=== PATIENT | male | born 1975 | race Caucasian/White ===

== ENCOUNTER 2016-09-06 07:15 | Day surgery (SDC) | payer BC ==
[2016-09-05 16:19] VITALS: BMI 28.1
[2016-09-06] MEDS ORDERED: BUPIVACAINE HCL/PF 0.25% (2.5MG/ML) 10 ML VIAL ONE ×2 (07:42→07:43)
[2016-09-06] MEDS ORDERED: DEXAMETHASONE SOD PHOSPHATE 4 MG/1 ML VIAL ONE (07:42)
[2016-09-06] MEDS ORDERED: MIDAZOLAM HCL 2 MG/2 ML SINGLE DOSE VIAL ONE ×3 (08:57→09:18)
[2016-09-06] MEDS ORDERED: LIDOCAINE HCL 1%, 10 MG/ML (20ML VIAL) ONE (09:03)
[2016-09-06] MEDS ORDERED: BETAMET ACET/BETAMET NA PH 30 MG/5 ML VIAL ONE (09:04)
[2016-09-06] MEDS ORDERED: BUPIVACAINE HCL/PF 0.25% (2.5MG/ML) 10 ML VIAL IJ ONE ×2 (09:21)
[2016-09-06] MEDS ORDERED: BETAMET ACET/BETAMET NA PH 30 MG/5 ML VIAL NR ONE ×2 (09:21)
[2016-09-06] MEDS ORDERED: IOHEXOL 180 MG/1 ML ML IJ ONE (09:21)
[2016-09-06] MEDS ORDERED: LIDOCAINE HCL 1%, 10 MG/ML (50 mL VIAL) IJ ONE (09:21)
--- NOTE | 2016-09-06 09:38 | HP ---
Admitting History and Physical - Admission Chief Complaint: 1. Neck pain - Past Medical History Musculoskeletal: Yes: Chronic low back pain - Smoking History Smoking history: Never smoked Have you smoked in the past 12 months: No - Alcohol/Substance Use Hx Alcohol Use: Yes (rarely) - Social History ADL: Family Assistance Home Medications - Allergies Allergies/Adverse Reactions: Allergies Allergy/AdvReac Type Severity Reaction Status Date / Time Iodinated Contrast Media - Allergy Verified 09/05/16 16:12 Oral and [Iodinated Contrast Media - IV Dye] ketorolac tromethamine Allergy Verified 09/05/16 16:12 [From Toradol] Penicillins Allergy Verified 09/05/16 16:12 scallops Allergy Verified 09/05/16 16:12 strawberry Allergy Verified 09/05/16 16:12 - Home Medications Home Medications: Ambulatory Orders NK [No Known Home Medication] 09/05/16 Physical Examination Vital Signs: Vital Signs Temperature 97.8 F 09/06/16 07:32 Pulse Rate 94 H 09/06/16 07:32 Respiratory Rate 20 09/06/16 07:32 Blood Pressure 119/85 09/06/16 07:32 O2 Sat by Pulse Oximetry (%) 100 09/06/16 07:32 Assessment/Plan A: 1. Cervical DDD 2. Cervical Adjacent level disease P: 1. Right C4/5 and C5/6 facet joint injections under fluoroscopy.
[2016-09-06] MEDS ORDERED: LACTATED RINGERS SOLUTION 1,000 ML IV SCH ×2 (10:00→13:45)
[2016-09-06] MEDS ORDERED: morphine CARPU-JECT 4 MG/1 ML DISP.SYRIN ONE ×2 (10:21→12:37)
[2016-09-06] MEDS ORDERED: morphine CARPU-JECT 2 MG/1 ML DISP.SYRIN IVPUSH ONE ×2 (10:26→10:31)
[2016-09-06] MEDS ORDERED: NITROGLYCERIN SUBLINGUAL 1/150 0.4 MG TAB SL ONE ×2 (10:40→11:03)
[2016-09-06] MEDS ORDERED: LORAZEPAM CARPU-JECT 2 MG/ML DISP.SYRIN ONE (10:44)
--- NOTE | 2016-09-06 10:46 | EKG ---
Test Reason : Blood Pressure : / mmHG Vent. Rate : 086 BPM Atrial Rate : 086 BPM P-R Int : 134 ms QRS Dur : 094 ms QT Int : 360 ms P-R-T Axes : 030 -05 021 degrees QTc Int : 430 ms NORMAL SINUS RHYTHM NORMAL ECG WHEN COMPARED WITH ECG OF 31-JAN-2016 15:18, NO SIGNIFICANT CHANGE WAS FOUND Confirmed by GUZMAN HOGUE MD ([id number]) on 09/06/2016 10:46:25 AM Referred By: Александр Wallis Confirmed By:GUZMAN HOGUE MD
[2016-09-06] MEDS ORDERED: PANTOPRAZOLE SODIUM 40 MG/100 ML PRE-DOCKED IVPB ONE (10:55)
[2016-09-06] MEDS: PANTOPRAZOLE SODIUM 40 MG/100 ML PRE-DOCKED IVPB ONE ×2 (10:55→11:55)
[2016-09-06 10:58] LABS: MCH 29.3 pg (25.7-33.7); MCHC 33.5 g/dl (32.0-35.9); MEAN CELL VOLUME 87.4 fl (80-96); MEAN PLT VOLUME 7.8 fl (7.5-11.1); PLATELET COUNT 246 K/MM3 (134-434); RDW 14.5 % (11.9-15.9); WHITE BLOOD COUNT 7.4 K/mm3 (4.0-10.0)
[2016-09-06] MEDS ORDERED: LORAZEPAM CARPU-JECT 2 MG/ML DISP.SYRIN IVPUSH ONE ×2 (11:06→12:45)
[2016-09-06] MEDS ORDERED: CITRIC ACID/SODIUM CITRATE 30 ML UNIT-DOSE CUP PO ONE (11:10)
[2016-09-06 11:38] LABS: ALBUMIN 3.8 g/dl (3.4-5.0); ANION GAP 8 (8-16); BILIRUBIN,TOTAL 0.8 mg/dL (0.2-1.0); CALCIUM 8.7 mg/dL (8.5-10.1); CO2 28 mmol/L (21-32); GLUCOSE,RANDOM 127 mg/dL (74-106); SGOT/AST 25 U/L (15-37); SGPT/ALT 76 U/L (12-78)
[2016-09-06 11:40] LABS: ALK PHOS 64 U/L (45-117); TROPONIN I < 0.02 ng/ml (0.00-0.05)
[2016-09-06] MEDS: morphine CARPU-JECT 4 MG/1 ML DISP.SYRIN IVPB PRN ×2 (12:40→18:12)
[2016-09-06] MEDS ORDERED: PANTOPRAZOLE SODIUM 100 ML IVPB ONE (13:00)
--- NOTE | 2016-09-06 13:12 | HP ---
CHIEF COMPLAINT: Chest pain PCP: Dr. Jeremy Manrique [place] [place] HISTORY OF PRESENT ILLNESS: This is a 40 year old male with a history of anxiety, OCD, depression, cervical spondylosis and radiculopathy, and 11 neck and back surgeries over the past 6 months who underwent midline C7/T1 interlaminar epidural steroid injections under fluoroscopy. In the recovery room , the patient complained of chest pain radiating to the left arm and up the left side of his neck "like a fishhook in my mouth." He reports associated shortness of breath. He denies nausea or diaphoresis. Pain improved with administration of ntg, morphine, and lorazepam in PACU, but is still present. -EKG was obtained showing NSR at [address] or T wave changes -CXR was obtained showing no acute pulmonary pathology -Labs including troponin were unremarkable -V/s are notable for mild tachycardia (HR 92-99) The patient reports having a normal nuclear stress test 10 years ago as part of a workup for palpitations. 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 Smoking: Smoked from [age] Alcohol: 1-2 drinks weekly Drugs: None Family History: Father with CAD/TX age 51, mother with HTN, "five aunts and uncles with heart attacks" Allergies Iodinated Contrast Media - Oral and [Iodinated Contrast Media - IV Dye] Allergy (Verified 09/05/16 16:12) ketorolac tromethamine [From Toradol] Allergy (Verified 09/05/16 16:12) Penicillins Allergy (Verified 09/05/16 16:12) scallops Allergy (Verified 09/05/16 16:12) strawberry Allergy (Verified 09/05/16 16:12) HOME MEDICATIONS: Home Medications Medication Instructions Recorded NK [No Known Home Medication] 09/05/16 REVIEW OF SYSTEMS CONSTITUTIONAL: Absent: fever, chills, diaphoresis, generalized weakness, malaise, loss of appetite, weight change HEENT: Absent: rhinorrhea, nasal congestion, throat pain, throat swelling, difficulty swallowing, mouth swelling, ear pain, eye pain, visual changes CARDIOVASCULAR: See HPI. RESPIRATORY: Absent: cough,dyspnea with exertion, orthopnea, wheezing, stridor, hemoptysis GASTROINTESTINAL: Absent: abdominal pain, abdominal distension, nausea, vomiting, diarrhea, constipation, melena, hematochezia GENITOURINARY: Absent: dysuria, frequency, urgency, hesitancy, hematuria, flank pain, genital pain MUSCULOSKELETAL: Absent: myalgia, arthralgia, joint swelling, back pain, neck pain SKIN: Absent: rash, itching, pallor HEMATOLOGIC/IMMUNOLOGIC: Absent: easy bleeding, easy bruising, lymphadenopathy, frequent infections ENDOCRINE: Absent: unexplained weight gain, unexplained weight loss, heat intolerance, cold intolerance NEUROLOGIC: Absent: headache, focal weakness or paresthesias, dizziness, unsteady gait, seizure, mental status changes, bladder or bowel incontinence PSYCHIATRIC: History of anxiety/OCD/depression; not on any medications for about 6 months. PHYSICAL EXAMINATION Vital Signs - 24 hr 09/05/16 09/06/16 09/06/16 16:15 07:32 09:40 Temperature 97.8 F 97.8 F 98.0 F Pulse Rate 94 H 94 H 88 Respiratory 20 20 10 L Rate Blood Pressure 119/85 119/85 138/95 O2 Sat by Pulse 100 98 Oximetry (%) 09/06/16 09/06/16 09/06/16 10:00 10:15 10:20 Temperature Pulse Rate 81 77 99 H Respiratory 20 16 16 Rate Blood Pressure 128/79 130/89 126/101 O2 Sat by Pulse 96 95 99 Oximetry (%) 09/06/16 09/06/16 09/06/16 10:30 10:45 11:00 Temperature Pulse Rate 93 H 92 H 93 H Respiratory 18 18 18 Rate Blood Pressure 125/94 122/79 128/80 O2 Sat by Pulse 100 95 97 Oximetry (%) GENERAL: Awake, alert, and fully oriented, in no acute distress. HEAD: Normal with no signs of trauma. EYES: Pupils equal, round and reactive to light, extraocular movements intact, sclera anicteric, conjunctiva clear. No lid lag. EARS, NOSE, THROAT: Ears normal, nares patent, oropharynx clear without exudates. Moist mucous membranes. NECK: Normal range of motion, supple without lymphadenopathy, JVD, or masses. LUNGS: Breath sounds equal, clear to auscultation bilaterally. No wheezes, and no crackles. No accessory muscle use. HEART: Regular rate and rhythm, normal S1 and S2 without murmur, rub or gallop. Pain reproducible with twisting movement of torso and with palpation of left sternum. ABDOMEN: Soft, nontender, not distended, normoactive bowel sounds, no guarding, no rebound, no masses. No hepatomegaly or splenomegaly. MUSCULOSKELETAL: Normal range of motion at all joints. No bony deformities or tenderness. No CVA tenderness. UPPER EXTREMITIES: 2+ pulses, warm, well-perfused. No cyanosis. No clubbing. Cap refill <2 seconds. No peripheral edema. LOWER EXTREMITIES: 2+ pulses, warm, well-perfused. No calf tenderness. No peripheral edema. NEUROLOGICAL: Cranial nerves II-XII intact. Normal speech. Normal gait. PSYCHIATRIC: Anxious affect. SKIN: Warm, dry, normal turgor, no rashes or lesions noted. Laboratory Results - last 24 hr 09/06/16 09/06/16 10:35 10:35 WBC 7.4 RBC 4.95 Hgb 14.5 D Hct 43.2 MCV 87.4 MCHC 33.5 RDW 14.5 Plt Count 246 D MPV 7.8 Sodium 140 Potassium 4.9 D Chloride 104 Carbon Dioxide 28 Anion Gap 8 BUN 10 Creatinine 1.0 Creat Clearance w eGFR > 60 Random Glucose 127 H Calcium 8.7 Total Bilirubin 0.8 D AST 25 D ALT 76 D Alkaline Phosphatase 64 Creatine Kinase 67 Troponin I < 0.02 Total Protein 7.0 Albumin 3.8 ASSESSMENT/PLAN: 40 year old male placed in observation for post-procedural chest pain. Problem List - Problem (1) Chest pain Assessment/Plan: -Reproducible -EKG, CXR, TNI x 1 unremarkable -Monitor on telemetry -Complete serial troponins to rule out [place] -Echocardiogram -If negative, advise outpatient cardiology followup given strong family history Code(s): R07.9 - CHEST PAIN, UNSPECIFIED (2) Anxiety Assessment/Plan: -Not on daily meds at this time -Alprazolam 0.25mg q8h prn Code(s): F41.9 - ANXIETY DISORDER, UNSPECIFIED (3) S/P epidural steroid injection Assessment/Plan: -Oxycodone 5mg po q6h prn pain Code(s): Z98.89 - OTHER SPECIFIED POSTPROCEDURAL STATES * DO NOT USE * (4) DVT prophylaxis Assessment/Plan: -Low risk (short expected length of stay) -Early ambulation ADDENDUM: Patient developed "excruciating" chest pain and sinus tachycardia to 160s. Will give IVF bolus. CTA chest ordered. Cardiology consulted. Night team to follow up. Code(s): [id number] - Visit type - Emergency Visit Emergency Visit: No - New Patient This patient is new to me today: Yes Date on this admission: 09/06/16 - Critical Care Critical Care patient: No
[2016-09-06] MEDS ORDERED: ACETAMINOPHEN 325 MG TABLET (FP) PO PRN (13:16)
[2016-09-06] MEDS ORDERED: ONDANSETRON 4 MG/2 ML VIAL IVPB PRN (13:16)
[2016-09-06] MEDS ORDERED: ALPRAZolam 0.25 MG TABLET PO PRN (14:05)
[2016-09-06] MEDS: oxyCODONE HCL 5 MG TABLET PO PRN ×2 (15:05→21:03)
[2016-09-06 18:02] LABS: TROPONIN I < 0.02 ng/ml (0.00-0.05)
[2016-09-06] MEDS ORDERED: morphine CARPU-JECT 2 MG/1 ML DISP.SYRIN ONE (18:08)
[2016-09-06] MEDS ORDERED: SODIUM CHLORIDE 1,000 ML IV STA (18:15)
--- NOTE | 2016-09-06 18:18 | CON.CARD ---
Consult Consult Specialty:: Cardiology Referred by:: Hospitalist Medicine Reason for Consultation:: Chest pain, tachycardia - History of Present Illness Chief Complaint: Chest pain, tachycardia History of Present Illness: This is a 40 year old male with a history of anxiety, OCD, depression, cervical spondylosis and radiculopathy, and 11 neck and back surgeries over the past 6 months who underwent midline C7/T1 interlaminar epidural steroid injections under fluoroscopy. In the recovery room, the patient complained of pleuritic chest pain radiating to the left arm and up the left side of his neck "like a fishhook in my mouth." He reports associated shortness of breath. He denies nausea, emesis, near or true syncope, palpitations or diaphoresis. Pain improved with administration of ntg, morphine, and lorazepam in PACU, but recurred on floor, now with sinus tachycardia. - History Source History Provided By: Patient Limitations to Obtaining History: No Limitations - Past Medical History Musculoskeletal: Yes: Chronic low back pain - Alcohol/Substance Use Hx Alcohol Use: Yes (rarely) - Smoking History Smoking history: Never smoked Have you smoked in the past 12 months: No - Social History Usual Living Arrangement: With Spouse ADL: Family Assistance Home Medications - Allergies Allergies/Adverse Reactions: Allergies Allergy/AdvReac Type Severity Reaction Status Date / Time Iodinated Contrast Media - Allergy Verified 09/05/16 16:12 Oral and [Iodinated Contrast Media - IV Dye] ketorolac tromethamine Allergy Verified 09/05/16 16:12 [From Toradol] Penicillins Allergy Verified 09/05/16 16:12 scallops Allergy Verified 09/05/16 16:12 strawberry Allergy Verified 09/05/16 16:12 - Home Medications Home Medications: Ambulatory Orders NK [No Known Home Medication] 09/05/16 Vital Signs: Vital Signs Temperature 97.9 F 09/06/16 14:41 Pulse Rate 113 H 09/06/16 14:41 Respiratory Rate 20 09/06/16 14:41 Blood Pressure 129/89 09/06/16 14:41 O2 Sat by Pulse Oximetry (%) 97 09/06/16 13:14 Constitutional: Yes: Anxious, Moderate Distress Neck: Yes: Supple Respiratory: Yes: Regular, Diminished, Other (Pleurisy) Gastrointestinal: Yes: Normal Bowel Sounds, Soft Cardiovascular: Yes: Tachycardia JVD: No Carotid Bruit: No Heart Sounds: Yes: S1, S2 Edema: No - Other Data Labs, Other Data: CBC, BMP 09/06/16 10:35 09/06/16 10:35 Troponin, BNP 09/06/16 10:35 Troponin I < 0.02 Troponin, BNP 09/06/16 10:35 Troponin I < 0.02 ST @ 130's Imaging - Results Chest X-ray: Report Reviewed (NAD, no PTX) Problem List - Problems (1) Chest pain Code(s): R07.9 - CHEST PAIN, UNSPECIFIED Qualifiers: Chest pain type: chest pain on breathing Qualified Code(s): R07.1 - Chest pain on breathing (2) Radiculopathy affecting upper extremity Code(s): M54.10 - RADICULOPATHY, SITE UNSPECIFIED (3) S/P epidural steroid injection Code(s): Z98.89 - OTHER SPECIFIED POSTPROCEDURAL STATES * DO NOT USE * (4) Sinus tachycardia Code(s): R00.0 - TACHYCARDIA, UNSPECIFIED (5) Dyspnea Code(s): R06.00 - DYSPNEA, UNSPECIFIED Qualifiers: Dyspnea type: shortness of breath Qualified Code(s): R06.02 - Shortness of breath Assessment/Plan 1. Pleuritic chest pain with tachycardia and need to r/o pulm embolism 2. Cervical DJD s/p interlaminar epidural steroid injections under fluoroscopy P:1. F/u Chest CTA with pre-med Benadryl and Hydrocortisone given iodinated contrast allergy (urticaria) 2. O2, morphine as needed 3. Thank you for consultative opportunity
[2016-09-06] MEDS ORDERED: HYDROCORTISONE SOD SUCCINATE 100 MG/2 ML VIAL IVPB ONE (18:24)
[2016-09-06] MEDS ORDERED: HYDROCORTISONE SOD SUCCINATE 2 ML ONE (18:29)
[2016-09-06] MEDS: DOCUSATE SODIUM 100 MG CAPSULE (FP) PO SCH (21:06)
[2016-09-07] MEDS ORDERED: morphine CARPU-JECT 2 MG/1 ML DISP.SYRIN ONE ×3 (01:04→14:10)
[2016-09-07] MEDS: morphine CARPU-JECT 4 MG/1 ML DISP.SYRIN IVPB PRN ×3 (01:12→14:15)
[2016-09-07 08:25] LABS: MCH 29.8 pg (25.7-33.7); MCHC 34.4 g/dl (32.0-35.9); MEAN CELL VOLUME 86.8 fl (80-96); NEUTROPHILS 85.1 % (42.8-82.8); PLATELET COUNT 255 K/MM3 (134-434); RDW 14.4 % (11.9-15.9); WHITE BLOOD COUNT 12.4 K/mm3 (4.0-10.0)
[2016-09-07 09:05] LABS: ALBUMIN 3.7 g/dl (3.4-5.0); ALK PHOS 56 U/L (45-117); ANION GAP 9 (8-16); BILIRUBIN,TOTAL 0.9 mg/dL (0.2-1.0); CALCIUM 8.8 mg/dL (8.5-10.1); CHOLESTEROL 308 mg/dL (50-200); CO2 27 mmol/L (21-32); CREATININE 0.9 mg/dL (0.7-1.3); GLUCOSE,RANDOM 133 mg/dL (74-106); LDL CHOLESTEROL (ONLY SJRH) 259 mg/dL (5-100); MAGNESIUM 2.1 mg/dL (1.8-2.4); SGOT/AST 16 U/L (15-37); SGPT/ALT 67 U/L (12-78); TOT PROT 6.8 g/dl (6.4-8.2); TROPONIN I < 0.02 ng/ml (0.00-0.05)
--- NOTE | 2016-09-07 11:10 | PN ---
Physical Exam: SUBJECTIVE: Patient seen and examined Patient has no more chest pain resolved. Comfortable with n o acute distress. OBJECTIVE: Vital Signs Temperature 97.8 F 09/07/16 08:00 Pulse Rate 81 09/07/16 08:00 Respiratory Rate 18 09/07/16 08:00 Blood Pressure 136/96 09/07/16 08:00 O2 Sat by Pulse Oximetry (%) 97 09/06/16 21:00 GENERAL: The patient is awake, alert, and fully oriented, in no acute distress. HEAD: Normal with no signs of trauma. EYES: PERRL, extraocular movements intact, sclera anicteric, conjunctiva clear. No ptosis. ENT: Ears normal, oropharynx clear without exudates, moist mucous membranes. NECK: Trachea midline, full range of motion, supple. LUNGS: Breath sounds equal, clear to auscultation bilaterally, no wheezes, no crackles, no accessory muscle use. HEART: Regular rate and rhythm, S1, S2 without murmur, rub or gallop. ABDOMEN: Soft, nontender, nondistended, normoactive bowel sounds, no guarding, no rebound, no hepatosplenomegaly, no masses. EXTREMITIES: 2+ pulses, warm, well-perfused, no edema. NEUROLOGICAL: Cranial nerves II through XII grossly intact. Normal speech. PSYCH: Normal mood, normal affect. SKIN: Warm, dry, normal turgor, no rashes or lesions noted Laboratory Results - last 24 hr 09/06/16 09/06/16 09/06/16 10:35 10:35 15:30 WBC 7.4 RBC 4.95 Hgb 14.5 D Hct 43.2 MCV 87.4 MCHC 33.5 RDW 14.5 Plt Count 246 D MPV 7.8 Neutrophils % Lymphocytes % Monocytes % Eosinophils % Basophils % Sodium 140 Potassium 4.9 D Chloride 104 Carbon Dioxide 28 Anion Gap 8 BUN 10 Creatinine 1.0 Creat Clearance w eGFR > 60 Random Glucose 127 H Hemoglobin A1c % Calcium 8.7 Magnesium Total Bilirubin 0.8 D AST 25 D ALT 76 D Alkaline Phosphatase 64 Creatine Kinase 67 76 Troponin I < 0.02 < 0.02 Total Protein 7.0 Albumin 3.8 Triglycerides Cholesterol Total LDL Cholesterol HDL Cholesterol 09/07/16 09/07/16 09/07/16 05:40 05:40 05:40 WBC 12.4 H D RBC 4.51 Hgb 13.5 Hct 39.2 MCV 86.8 MCHC 34.4 RDW 14.4 Plt Count 255 MPV 8.0 Neutrophils % 85.1 H D Lymphocytes % 10.5 D Monocytes % 4.4 Eosinophils % 0.0 D Basophils % 0.0 Sodium 139 Potassium 4.4 Chloride 103 Carbon Dioxide 27 Anion Gap 9 BUN 13 D Creatinine 0.9 Creat Clearance w eGFR > 60 Random Glucose 133 H Hemoglobin A1c % 5.8 Calcium 8.8 Magnesium 2.1 Total Bilirubin 0.9 AST 16 D ALT 67 Alkaline Phosphatase 56 Creatine Kinase 53 Troponin I < 0.02 Total Protein 6.8 Albumin 3.7 Triglycerides 107 Cholesterol 308 H Total LDL Cholesterol 259 H HDL Cholesterol 53 Active Medications Generic Name Dose Route Start Last Admin Trade Name Freq PRN Reason Stop Dose Admin Acetaminophen 650 mg 09/06/16 13:16 09/06/16 15:07 Tylenol - PO 650 mg Q6H PRN Administration FEVER OR PAIN Alprazolam 0.25 mg 09/06/16 14:05 09/06/16 21:02 Xanax - PO 0.25 mg Q8H PRN Administration ANXIETY Docusate Sodium 100 mg 09/06/16 22:00 09/06/16 21:06 Colace - PO Not Given TID KONG Morphine Sulfate 4 mg 09/06/16 13:44 09/07/16 09:21 Morphine Injection - IVPB 4 mg Q4H PRN Administration Ondansetron HCl 4 mg 09/06/16 13:16 Zofran Injection IVPB Q6H PRN NAUSEA Oxycodone HCl 5 mg 09/06/16 14:06 09/06/16 21:03 Roxicodone - PO 5 mg Q6H PRN Administration PAIN ASSESSMENT/PLAN: 40 year old male placed in observation for post-procedural chest pain. # Acute Chest pain , [place] is rulled out by neagtive troponins ; Reproducible; Troponins x2 negative Follow with bilingual spanish inbound sales as an outpatient ; with that his father in law goes to . # Anxiety continue home meds ,Alprazolam 0.25mg q8h prn # S/P epidural steroid injection ;Oxycodone 5mg po q6h prn pain given Rx for 12 days # Leukocytosis due to steroid # Elevated LDL lipid ,will start the patient on Lipitor 40mg po daily, follow with your primary. Discussed with bilingual spanish inbound sales agreed on starting the patient on 40mg po Lipitor daily. DVT prophylaxis: EARLY ambulation Visit type - Emergency Visit Emergency Visit: Yes Care time: The patient presented to the Emergency Department on the above date and was hospitalized for further evaluation of their emergent condition. - New Patient This patient is new to me today: Yes Date on this admission: 09/07/16 - Critical Care Critical Care patient: No - Discharge Referral Referred to [facility] Med P.C.: No
[2016-09-07] MEDS ORDERED: ATORVASTATIN CA 40 MG TABLET (FP) PO ONE (11:17)
--- NOTE | 2016-09-07 13:39 | PN ---
Progress Note, Physician Chief Complaint: Events noted Complains of left sided chest discomfort, but appears to be musculoskeletal as he has difficulty raising his left arm fully above his shoulder History of Present Illness: Patient was seen and examined. Awake and alert. Chart was reviewed As outlined. Denies shortness of breath or palpitation - Current Medication List Current Medications: Active Medications Acetaminophen (Tylenol -) 650 mg PO Q6H PRN PRN Reason: FEVER OR PAIN Last Admin: 09/06/16 15:07 Dose: 650 mg Alprazolam (Xanax -) 0.25 mg PO Q8H PRN PRN Reason: ANXIETY Last Admin: 09/06/16 21:02 Dose: 0.25 mg Atorvastatin Calcium (Lipitor -) 40 mg PO HS KONG Docusate Sodium (Colace -) 100 mg PO TID KONG Last Admin: 09/06/16 21:06 Dose: Not Given Morphine Sulfate (Morphine Injection -) 4 mg IVPB Q4H PRN Last Admin: 09/07/16 09:21 Dose: 4 mg Ondansetron HCl (Zofran Injection) 4 mg IVPB Q6H PRN PRN Reason: NAUSEA Oxycodone HCl (Roxicodone -) 5 mg PO Q6H PRN PRN Reason: PAIN Last Admin: 09/06/16 21:03 Dose: 5 mg - Objective Vital Signs: Vital Signs Temperature 97.8 F 09/07/16 08:00 Pulse Rate 81 09/07/16 08:00 Respiratory Rate 18 09/07/16 08:00 Blood Pressure 136/96 09/07/16 08:00 O2 Sat by Pulse Oximetry (%) 97 09/06/16 21:00 Neck: Yes: Supple Cardiovascular: Yes: Regular Rate and Rhythm, S1, S2 Respiratory: Yes: CTA Bilaterally Gastrointestinal: Yes: Normal Bowel Sounds, Soft. No: Tenderness Edema: No Additional Findings/Remarks: - Review of Systems Constitutional: denies: Fever. denies: Chills Cardiovascular: denies: Chest Pain, Palpitations, Shortness of Breath Respiratory: denies: Cough, Hemoptysis, Orthopnea, PND Gastrointestinal: denies: Abdominal Pain. denies: Diarrhea, Melena, Nausea, Rectal Bleeding, Vomiting Genitourinary: denies: Dysuria Neurological: denies: Dizziness, Headache, Seizure, Syncope Labs: CBC, BMP 09/07/16 05:40 09/07/16 05:40 Problem List - Problems (1) Neck pain Code(s): M54.2 - CERVICALGIA (2) Radiculopathy affecting upper extremity Code(s): M54.10 - RADICULOPATHY, SITE UNSPECIFIED (3) S/P epidural steroid injection Code(s): Z98.89 - OTHER SPECIFIED POSTPROCEDURAL STATES * DO NOT USE * (4) Chest pain Code(s): R07.9 - CHEST PAIN, UNSPECIFIED Qualifiers: Chest pain type: chest pain on breathing Qualified Code(s): R07.1 - Chest pain on breathing Assessment/Plan 1. Chest pain syndrome - musculoskeletal, ruled out with no PTE on chest CT 2. Cervical DJD s/p interlaminar epidural steroid injections under fluoroscopy 3. Hypercholesterolmia PLAN: 1. Analgesics 2. Patient states that he will see a senior climate advisor as outpatient (someone his family recommends). In view of strong family history of CAD at young age, further cardiac evaluation including stress testing was advised. 3. Initiate statin therapy in view of hypercholesterolemia George Salas MD
[2016-09-07] MEDS: DOCUSATE SODIUM 100 MG CAPSULE (FP) PO SCH (14:20)
--- NOTE | 2016-09-07 15:33 | DS ---
Physical Exam: SUBJECTIVE: Patient seen and examined Comfortable with no acute distress. No further chest pain. OBJECTIVE: Vital Signs Temperature 98 F 09/07/16 14:35 Pulse Rate 82 09/07/16 14:35 Respiratory Rate 20 09/07/16 14:35 Blood Pressure 123/70 09/07/16 14:35 O2 Sat by Pulse Oximetry (%) 97 09/06/16 21:00 PHYSICAL EXAM GENERAL: The patient is awake, alert, and fully oriented, in no acute distress. HEAD: Normal with no signs of trauma. EYES: PERRL, extraocular movements intact, sclera anicteric, conjunctiva clear. ENT: Ears normal, oropharynx clear without exudates, moist mucous membranes. NECK: Trachea midline, full range of motion, supple. LUNGS: Breath sounds equal, clear to auscultation bilaterally, no wheezes, no crackles, no accessory muscle use. HEART: Regular rate and rhythm, S1, S2 without murmur, rub or gallop. ABDOMEN: Soft, nontender, nondistended, normoactive bowel sounds, no guarding, no rebound, no hepatosplenomegaly, no masses. EXTREMITIES: 2+ pulses, warm, well-perfused, no edema. NEUROLOGICAL: Cranial nerves II through XII grossly intact. Normal speech, gait not observed. PSYCH: Normal mood, normal affect. SKIN: Warm, dry, normal turgor, no rashes or lesions noted. LABS Laboratory Results - last 24 hr 09/06/16 09/07/16 09/07/16 15:30 05:40 05:40 WBC 12.4 H D RBC 4.51 Hgb 13.5 Hct 39.2 MCV 86.8 MCHC 34.4 RDW 14.4 Plt Count 255 MPV 8.0 Neutrophils % 85.1 H D Lymphocytes % 10.5 D Monocytes % 4.4 Eosinophils % 0.0 D Basophils % 0.0 Sodium 139 Potassium 4.4 Chloride 103 Carbon Dioxide 27 Anion Gap 9 BUN 13 D Creatinine 0.9 Creat Clearance w eGFR > 60 Random Glucose 133 H Hemoglobin A1c % Calcium 8.8 Magnesium 2.1 Total Bilirubin 0.9 AST 16 D ALT 67 Alkaline Phosphatase 56 Creatine Kinase 76 53 Troponin I < 0.02 < 0.02 Total Protein 6.8 Albumin 3.7 Triglycerides 107 Cholesterol 308 H Total LDL Cholesterol 259 H HDL Cholesterol 53 09/07/16 05:40 WBC RBC Hgb Hct MCV MCHC RDW Plt Count MPV Neutrophils % Lymphocytes % Monocytes % Eosinophils % Basophils % Sodium Potassium Chloride Carbon Dioxide Anion Gap BUN Creatinine Creat Clearance w eGFR Random Glucose Hemoglobin A1c % 5.8 Calcium Magnesium Total Bilirubin AST ALT Alkaline Phosphatase Creatine Kinase Troponin I Total Protein Albumin Triglycerides Cholesterol Total LDL Cholesterol HDL Cholesterol HOSPITAL COURSE: Date of Admission:09/06/16 Date of Discharge: 09/07/16 40 year old male placed in observation for post-procedural chest pain. # Acute Chest pain , [place] is rulled out by negative troponins x 2 sets ; Reproducible; Troponins x2 negative ; Patient was seen by the multiple knife edge trimmer operator Follow with multiple knife edge trimmer operator as an outpatient ; with that his father in law goes to . Outpatient stress test by ( his father in laws) given Rx for pain Oxycodone 5mg q6h x 3 days and patient will follow up with on Friday # Anxiety continue home meds ,Alprazolam 0.25mg q8h prn # S/P epidural steroid injection ;Oxycodone 5mg po q6h prn pain given Rx for 12 tabs for 3 days # Leukocytosis due to steroid # Elevated LDL lipid ,will start the patient on Lipitor 40mg po daily, follow with your primary. Discussed with multiple knife edge trimmer operator agreed on starting the patient on 40mg po Lipitor daily. discharge time 35 minutes Minutes to complete discharge: 35 Discharge Summary Reason For Visit: CERVICALGIA,STATUS POST EPID STEROID INJ,CHEST GWENDOLYN Current Active Problems Anxiety (Acute) Arm paresthesia, right (Acute) Chest pain (Acute) DVT prophylaxis (Acute) Dyspnea (Acute) Intractable pain (Acute) Neck pain (Acute) Radiculopathy affecting upper extremity (Acute) S/P epidural steroid injection (Acute) Sinus tachycardia (Acute) Condition: Good - Instructions Diet, Activity, Other Instructions: Regular diet, Activity as tolerated. No driving today, may drive tomorrow. Referrals: George Salas MD [Staff Physician] - Disposition: HOME - Home Medications Comprehensive Discharge Medication List: Ambulatory Orders Atorvastatin Ca [Lipitor] 40 mg PO HS #10 tablet 09/07/16 Oxycodone HCl [Roxicodone -] 5 mg PO Q6H PRN #12 tablet MDD 4 09/07/16 This patient is new to me today: Yes Date on this admission: 09/07/16 Emergency Visit: No Critical Care patient: No - Discharge Referral Referred to [facility] Med P.C.: No
[2016-09-07 17:46] VITALS: BP 134/77; PULSE 89; TEMP 97.9
[2016-09-07] MEDS ORDERED: ATORVASTATIN CA 40 MG TABLET (FP) PO SCH (22:00)
--- NOTE | 2016-09-08 19:11 | EKG ---
Test Reason : Blood Pressure : / mmHG Vent. Rate : 138 BPM Atrial Rate : 138 BPM P-R Int : 136 ms QRS Dur : 074 ms QT Int : 282 ms P-R-T Axes : 063 -19 036 degrees QTc Int : 427 ms POOR DATA QUALITY, INTERPRETATION MAY BE ADVERSELY AFFECTED SINUS TACHYCARDIA ABNORMAL ECG WHEN COMPARED WITH ECG OF 06-SEP-2016 10:28, VENT. RATE HAS INCREASED BY 52 BPM Confirmed by SAHIL QUISPE, DEREK (2016) on 09/08/2016 7:11:20 PM Referred By: Александр Wallis Confirmed By:DEREK BAXTER MD
== END 2016-09-07 18:40 | disposition home or self-care (01) ==
LOC: JASUSAT 07:15 → JASU-SURG 07:15 → JSAMEDAYSX 12:00 → UNDOADMIN 12:00 → J4W 13:31 → JSAMEDAYSX 13:31 → JASUSAT 09-07 18:40
PROVIDERS: ATTEND Physical Medicine & Rehabilitation
PROC: 3E0T33Z Introduction of Anti-inflammatory into Peripheral Nerves and Plexi, Percutaneous Approach (ICD-10-PCS; 2016-09-06)
PROC: BR14YZZ Fluoroscopy of Cervical Facet Joint(s) using Other Contrast (ICD-10-PCS; 2016-09-06)
PROC: 3E0T3BZ Introduction of Anesthetic Agent into Peripheral Nerves and Plexi, Percutaneous Approach (ICD-10-PCS; principal; 2016-09-06 08:30)
DX: M47.9 Spondylosis, unspecified (principal); M54.2 Cervicalgia; R07.1 Chest pain on breathing
CPT/HCPCS: 36415; 71010-TC; 71275-TC; 76000-TC; 80053; 80061; 82550; 83036; 83721; 83735; 84484; 85025; 85027; 93005; 93010; 93306-TC; 94760; 97116-GP; 97161-GP

== ENCOUNTER 2016-09-08 09:58 | Emergency (ER) | payer BC ==
[2016-09-08 10:11] VITALS: BP 141/87; PULSE 101; TEMP 97; BMI 29.0
[2016-09-08 10:28] LABS: BASOPHIL 0.5 % (0-2.0); EOSINOPHIL 0.3 % (0-4.5); MCH 29.5 pg (25.7-33.7); MEAN PLT VOLUME 7.7 fl (7.5-11.1); NEUTROPHILS 70.7 % (42.8-82.8); PLATELET COUNT 263 K/MM3 (134-434); RDW 14.3 % (11.9-15.9); WHITE BLOOD COUNT 14.9 K/mm3 (4.0-10.0)
[2016-09-08] MEDS ORDERED: LORAZEPAM CARPU-JECT 2 MG/ML DISP.SYRIN ONE (10:36)
[2016-09-08] MEDS ORDERED: MAG HYDROX/AL HYDROX/SIMETH 30 ML UNIT-DOSE CUP ONE (10:37)
[2016-09-08] MEDS ORDERED: RANITIDINE HCL 50 MG/2 ML VIAL ONE (10:37)
[2016-09-08 10:51] LABS: INR 0.96 (0.82-1.09)
[2016-09-08 10:53] LABS: ALBUMIN 3.9 g/dl (3.4-5.0); ANION GAP 10 (8-16); CALCIUM 8.7 mg/dL (8.5-10.1); CO2 28 mmol/L (21-32); CREATININE 0.9 mg/dL (0.7-1.3); GLUCOSE,RANDOM 119 mg/dL (74-106); SGOT/AST 13 U/L (15-37); SGPT/ALT 60 U/L (12-78)
[2016-09-08 10:56] LABS: ALK PHOS 70 U/L (45-117); BILIRUBIN,TOTAL 0.5 mg/dL (0.2-1.0); TOT PROT 7.1 g/dl (6.4-8.2); TROPONIN I < 0.02 ng/ml (0.00-0.05)
[2016-09-08 10:58] LABS: D-DIMER < 200 ng/ml (<200-235)
[2016-09-08] MEDS ORDERED: LORAZEPAM CARPU-JECT 2 MG/ML DISP.SYRIN IVPUSH ONE (11:04)
[2016-09-08] MEDS ORDERED: SODIUM CHLORIDE 1,000 ML IV STA (11:05)
[2016-09-08] MEDS ORDERED: MAG HYDROX/AL HYDROX/SIMETH 30 ML UNIT-DOSE CUP PO ONE (11:05)
--- NOTE | 2016-09-08 11:08 | PDOC ---
History of Present Illness - General Chief Complaint: Shortness of Breath Stated Complaint: CHEST PAIN, SOB Time Seen by Provider: 09/08/16 10:11 History Source: Patient Exam Limitations: No Limitations - History of Present Illness Initial Comments: 09/08/16 11:48 Chief complaint: Chest pain Patient is a 40-year-old male with a history of anxiety, OCD, depression, cervical radiculopathy who had a midline C7/T1 interlaminar laminal epidural steroid injection under fluoroscopy this past Friday. Patient had woken up with chest pain to the left arm into his neck. Patient was admitted to the hospital had a negative CTA and was seen by cardiology and had an echocardiogram. Patient went home last night and told to take Percocet for his pain which he did. Patient states that he woke up this morning with pain from the chest that goes down into his left leg, complaining of cramping in both thighs, and pain into the neck. Worse than yesterday. Patient is very anxious and in tears. GENERAL/CONSTITUTIONAL: No fever, weakness. dizziness HEAD, EYES, EARS, NOSE AND THROAT: No change in vision. No ear pain or discharge. No sore throat. CARDIOVASCULAR: No chest pain RESPIRATORY: No shortness of breath or cough GASTROINTESTINAL: No pain, nausea, vomiting, diarrhea or constipation GENITOURINARY: No dysuria MUSCULOSKELETAL: No neck or back pain SKIN: No rash NEUROLOGIC: No headache, vertigo, loss of consciousness, or loss of sensation. GENERAL: The patient is awake, alert, and fully oriented, in no acute distress. HEAD: Normal with no signs of trauma. EYES: Pupils equal, round and reactive to light, sclera anicteric, conjunctiva clear. ENT: pharynx: no erythema, no exudate, uvula midline NECK: supple CHEST: clear, + tenderness mid left anterior chest area, rr ABD: soft, nontender EXTREMITIES: Normal range of motion, no edema. Strength 5 out of 5 upper and lower extremities bilaterally, neurovascular intact NEUROLOGICAL: Normal speech, no asymmetry SKIN: Warm, Dry Past History - Past Medical History Allergies/Adverse Reactions: Allergies Allergy/AdvReac Type Severity Reaction Status Date / Time Iodinated Contrast Media - Allergy Verified 09/08/16 10:10 Oral and [Iodinated Contrast Media - IV Dye] ketorolac tromethamine Allergy Verified 09/08/16 10:10 [From Toradol] Penicillins Allergy Verified 09/08/16 10:10 scallops Allergy Verified 09/08/16 10:10 strawberry Allergy Verified 09/08/16 10:10 Home Medications: Ambulatory Orders NK [No Known Home Medication] 09/08/16 Anemia: No Asthma: No Cancer: No Cardiac Disorders: No CVA: No COPD: No CHF: No Dementia: No Diabetes: No GI Disorders: No Disorders: No HTN: No Hypercholesterolemia: Yes (diet controlled) Liver Disease: No Psychiatric Problems: Yes (DEPRESSION,ANXIETY) Suicide Attempt (Hx): No Seizures: No Thyroid Disease: No - Surgical History Abdominal Surgery: Yes Appendectomy: Yes Cardiac Surgery: No Cholecystectomy: Yes Lung Surgery: No Neurologic Surgery: Yes (neck sx,FUSION, 8 BACK SX) Orthopedic Surgery: Yes (L5 S1 T 12 L1 C5 C6 Rt ankle arthroscopic) - Immunization History Td Vaccination: Yes TDAP Vaccination: Yes Immunization Up to Date: Yes - Psycho/Social/Smoking Cessation Hx Anxiety: Yes Suicidal Ideation: No Smoking History: Never smoked Have you smoked in the past 12 months: No Hx Alcohol Use: Yes (rarely) Drug/Substance Use Hx: No Substance Use Type: None Hx Substance Use Treatment: No *Physical Exam - Vital Signs Last Vital Signs Temp Pulse Resp BP Pulse Ox 97 F L 101 H 20 141/87 95 09/08/16 10:08 09/08/16 10:08 09/08/16 10:08 09/08/16 10:08 09/08/16 10:08 Heart Score/ECG Review - ECG Intrepretation Rhythm: Regular Rhythm Comment:: 09/08/16 11:51 Normal sinus at 98, normal EKG, QTC 403 ED Treatment Course - LABORATORY CBC & Chemistry Diagram: 09/08/16 10:17 09/08/16 10:17 - ADDITIONAL ORDERS Additional order review: Laboratory Results 09/08/16 09/08/16 10:17 10:17 INR 0.96 Sodium 141 Potassium 4.0 Chloride 103 Carbon Dioxide 28 Anion Gap 10 BUN 16 D Creatinine 0.9 Creat Clearance w eGFR > 60 Random Glucose 119 H Calcium 8.7 Total Bilirubin 0.5 D AST 13 L ALT 60 Alkaline Phosphatase 70 D Creatine Kinase 51 Troponin I < 0.02 Total Protein 7.1 Albumin 3.9 09/08/16 10:17 RBC 4.74 MCV 87.0 MCHC 34.0 RDW 14.3 MPV 7.7 Neutrophils % 70.7 Lymphocytes % 20.0 D Monocytes % 8.5 D Eosinophils % 0.3 D Basophils % 0.5 D - RADIOLOGY Radiology Studies Ordered: Category Date Time Status CHEST X-RAY PORTABLE* [RAD] Stat Radiology 09/08/16 10:12 Completed DUPLEX VASCUL US-2LEGS [US] Stat Ultrasound 09/08/16 10:45 Ordered Medical Decision Making - Medical Decision Making 09/08/16 11:51 Anxious 40-year-old male who had epidural injection on Friday, awoke with chest pain and was brought into the hospital had a negative CTA, cardiac workup. Patient is tender to the left anterior chest, very anxious and tearful. Patient took a Percocet at home and states the pain is worse than yesterday. Patient will get labs, EKG, pain meds and reassessment. Patient has pain to especially the left thigh. We'll do Dopplers and reassess. 09/08/16 13:54 Workup is negative, patient was given pain meds. Had long conversation regarding the workup and that there was no medical need for him to stay in the hospital, that he will go home, relax, take his pain meds and see his doctor tomorrow. Patient is very anxious, and everything 's cussed with him and his in detail regarding cardiac workup, repeat cardiac workup, CT that he had the other day, repeat d-dimer, and negative ultrasounds. And pain to the chest wall. 09/08/16 14:54 Dr. Campuzano involved in workup and plan *DC/Admit/Observation/Transfer Diagnosis at time of Disposition: Chest pain Qualifiers: Chest pain type: other chest pain Qualified Code(s): R07.89 - Other chest pain - Discharge Dispostion Disposition: HOME Admit: No - Referrals Referrals: Harish Manrique [Primary Care Provider] - - Patient Instructions Printed Discharge Instructions: DI for Acute Pain -- Adult Additional Instructions: Take your pain medicines as prescribed Follow-up with your doctor tomorrow
[2016-09-08] MEDS ORDERED: RANITIDINE HCL 150 MG TABLET (FP) NR ONE (11:11)
[2016-09-08] MEDS ORDERED: OXYCODONE/APAP 5/325MG COMBO TABLET PO ONE (11:45)
[2016-09-08] MEDS ORDERED: OXYCODONE/APAP 5/325MG COMBO TABLET ONE (11:50)
--- NOTE | 2016-09-08 19:10 | EKG ---
Test Reason : Blood Pressure : / mmHG Vent. Rate : 098 BPM Atrial Rate : 098 BPM P-R Int : 150 ms QRS Dur : 090 ms QT Int : 316 ms P-R-T Axes : 045 -17 035 degrees QTc Int : 403 ms NORMAL SINUS RHYTHM NORMAL ECG WHEN COMPARED WITH ECG OF 06-SEP-2016 18:10, VENT. RATE HAS DECREASED Confirmed by DEREK BAXTER MD ([id number]) on 09/08/2016 7:09:58 PM Referred By: Confirmed By:DEREK BAXTER MD
== END 2016-09-08 14:17 | disposition home or self-care (01) ==
LOC: JER 09:58
PROC: 3E0337Z Introduction of Electrolytic and Water Balance Substance into Peripheral Vein, Percutaneous Approach (ICD-10-PCS; principal; 2016-09-08)
PROC: 3E033NZ Introduction of Analgesics, Hypnotics, Sedatives into Peripheral Vein, Percutaneous Approach (ICD-10-PCS; 2016-09-08)
DX: R07.89 Other chest pain (principal); Z98.890 Other specified postprocedural states; M54.12 Radiculopathy, cervical region; F42.9 Obsessive-compulsive disorder, unspecified; F33.9 Major depressive disorder, recurrent, unspecified; F41.9 Anxiety disorder, unspecified
CPT/HCPCS: 36415; 71010-TC; 80053; 82550; 84484; 85025; 85379; 85610; 93005; 93010; 93970-TC; 99283-25

== ENCOUNTER 2016-12-03 09:48 | Emergency (ER) | payer BC ==
[2016-12-03 09:53] VITALS: TEMP 98.2; BMI 29.3
--- NOTE | 2016-12-03 10:16 | PDOC ---
History of Present Illness - History of Present Illness Initial Comments: 12/03/16 11:08 The patient is a 41 year old male, with a significant past medical history of hyperlipidemia (on lipitor), 3 tier spinal fusion of C4,5,6 (2015) and Lumbar Sx (2012), who presents to the emergency department with increased back pain and right upper extremity weakness s/p hearing a pop in his upper back upon getting out of bed this morning. The patient states he felt an immediate pain and numbness to his right upper extremity which he denies experiencing since his surgery in January 2016. He also reports the "pop" exacerbated his sciatica pain which radiates down his right lower extremity. He reports his pain is 10/ 10 and states he feels afraid to walk alone for concern he may fall. Secondarily , the patient reports some left shoulder tingling. He reports having a 3 Tier spinal fusion at C4,5,6 in summer of 2015, and states he has not has right upper extremity weakness since the procedure until the onset this morning. He states he received cortisone injections in May and September with no alleviation of his pain. He reports taking Flexeril and Lyrica daily. He also reports taking 5mg of percocet today for pain. He denies chest pain, shortness of breath, headache and dizziness. He denies fever, chills, nausea, vomit, diarrhea and constipation. He denies dysuria, frequency, urgency and hematuria. Allergies: iodinated contrast, ketorolac, tromethamine, penicillins, Neurosurgery - Dr. Gilbert Rosado <Jennifer Goodman - Last Filed: 12/03/16 11:33> <Collin Campuzano - Last Filed: 12/03/16 16:07> - General Chief Complaint: Back Pain Stated Complaint: (PCP SENT) SCIATICA/ NUMBNESS TO LT ARM/SIDE/LEG Time Seen by Provider: 12/03/16 10:05 Past History <Jennifer Goodman - Last Filed: 12/03/16 11:33> - Past Medical History Anemia: No Asthma: No Cancer: No Cardiac Disorders: No CVA: No COPD: No CHF: No Dementia: No Diabetes: No GI Disorders: No Disorders: No HTN: No Hypercholesterolemia: Yes (diet controlled) Liver Disease: No Psychiatric Problems: Yes (DEPRESSION,ANXIETY) Suicide Attempt (Hx): No Seizures: No Thyroid Disease: No Other medical history: back surgeries - Surgical History Abdominal Surgery: Yes Appendectomy: Yes Cardiac Surgery: No Cholecystectomy: Yes Lung Surgery: No Neurologic Surgery: Yes (neck sx,FUSION, 8 BACK SX) Orthopedic Surgery: Yes (L5 S1 T 12 L1 C5 C6 Rt ankle arthroscopic) - Immunization History Td Vaccination: Yes TDAP Vaccination: Yes Immunization Up to Date: Yes - Psycho/Social/Smoking Cessation Hx Anxiety: Yes Suicidal Ideation: No Smoking History: Never smoked Have you smoked in the past 12 months: No Information on smoking cessation initiated: No Hx Alcohol Use: No Drug/Substance Use Hx: No Substance Use Type: None Hx Substance Use Treatment: No <Collin Campuzano - Last Filed: 12/03/16 16:07> - Past Medical History Allergies/Adverse Reactions: Allergies Allergy/AdvReac Type Severity Reaction Status Date / Time Iodinated Contrast Media - Allergy Verified 12/03/16 09:53 Oral and [Iodinated Contrast Media - IV Dye] ketorolac tromethamine Allergy Verified 12/03/16 09:53 [From Toradol] Penicillins Allergy Verified 12/03/16 09:53 scallops Allergy Verified 12/03/16 09:53 strawberry Allergy Verified 12/03/16 09:53 Home Medications: Ambulatory Orders Atorvastatin Ca [Lipitor] 40 mg PO HS 12/03/16 Cyclobenzaprine HCl [Flexeril 10 mg] 10 mg PO DAILY 12/03/16 Oxycodone HCl/Acetaminophen [Percocet 5-325 mg Tablet] 1 tab PO Q6H PRN Pregabalin [Lyrica] 75 mg PO BID 12/03/16 Review of Systems - Review of Systems Able to Perform ROS?: Yes Comments:: 12/03/16 11:09 GENERAL/CONSTITUTIONAL: No fever or chills. No weakness. HEAD, EYES, EARS, NOSE AND THROAT: No change in vision. No ear pain or discharge. No sore throat. CARDIOVASCULAR: No chest pain or shortness of breath. RESPIRATORY: No cough, wheezing, or hemoptysis. GASTROINTESTINAL: No nausea, vomiting, diarrhea or constipation. GENITOURINARY: No dysuria, frequency, or change in urination. MUSCULOSKELETAL: (+) Back pain, right arm weakness, left shoulder tingling, and RLE pain and tingling. No joint swelling or pain. SKIN: No rash NEUROLOGIC: No headache, vertigo, loss of consciousness, or change in strength/ sensation. ENDOCRINE: No increased thirst. No abnormal weight change. HEMATOLOGIC/LYMPHATIC: No anemia, easy bleeding, or history of blood clots. ALLERGIC/IMMUNOLOGIC: No hives or skin allergy. <Jennifer Goodman - Last Filed: 12/03/16 11:33> *Physical Exam - Vital Signs Last Vital Signs Temp Pulse Resp BP Pulse Ox 98.2 F 122 H 18 149/107 96 12/03/16 09:51 12/03/16 09:51 12/03/16 09:51 12/03/16 09:51 12/03/16 09:51 - Physical Exam Comments: 12/03/16 11:09 GENERAL: Awake, alert, and fully oriented, in no acute distress HEAD: No signs of trauma EYES: PERRLA, EOMI, sclera anicteric, conjunctiva clear ENT: Auricles normal inspection, hearing grossly normal, nares patent, oropharynx clear without exudates. Moist mucosa NECK: Normal ROM, supple, no lymphadenopathy, JVD, or masses LUNGS: Breath sounds equal, clear to auscultation bilaterally. No wheezes, and no crackles HEART: Regular rate and rhythm, normal S1 and S2, no murmurs, rubs or gallops ABDOMEN: Soft, nontender, normoactive bowel sounds. No guarding, no rebound. No masses EXTREMITIES: Normal range of motion, no edema. No clubbing or cyanosis. No cords, erythema, or tenderness NEUROLOGICAL: (+) decreased strength in the RUE (2/5 MS) when compared to the LUE. detailed testing of the upper extremities displayed deficiencies of C4,5,6, 7. Normal speech. SKIN: Warm, Dry, normal turgor, no rashes or lesions noted. <Jennifer Goodman - Last Filed: 12/03/16 11:33> - Vital Signs Last Vital Signs Temp Pulse Resp BP Pulse Ox 98.2 F 122 H 18 149/107 96 12/03/16 09:51 12/03/16 09:51 12/03/16 09:51 12/03/16 09:51 12/03/16 09:51 <Collin Campuzano - Last Filed: 12/03/16 16:07> Medical Decision Making - Medical Decision Making 12/03/16 11:24 The patient is a 41 year old male who presents with increased pain to his thoracic spine with sudden onset of right upper extremity weakness and exacerbation of right lower extremity sciatic involvement. The patients medical history is significant for spinal fusion at C 4,5,6 with known spinal cord impingement. I will obtain MRI of Cervical and Thoracic spine as per Dr. Rosado's (Neurologist) request to rule out new anatomical abnormalities of the spine. Dr. Gilbert Rosado, Neurosurgeon, was called at the office at 11:00 AM and the patient's case was discussed. <Jennifer Goodman - Last Filed: 12/03/16 11:33> *DC/Admit/Observation/Transfer - Attestations Scribe Attestion: 12/03/16 11:28 Documentation prepared by Jennifer Goodman, acting as medical scheduler for Collin Campuzano MD <Jennifer Goodman - Last Filed: 12/03/16 11:33> - Discharge Dispostion Admit: No - Attestations Physician Attestion: 12/03/16 10:16 I, Dr. Collin Campuzano, attest that this document has been prepared under my direction and personally reviewed by me in its entirety. I further attest, that it accurately reflects all work, treatment, procedures and medical decision -making performed by me. <Collin Campuzano - Last Filed: 12/03/16 16:07> Diagnosis at time of Disposition: Chronic back pain - Discharge Dispostion Disposition: HOME Condition at time of disposition: Good - Referrals Referrals: Harish Manrique [Primary Care Provider] - Gilbert Rosado MD [Staff Physician] - - Patient Instructions Printed Discharge Instructions: DI for Low Back Pain Additional Instructions: Alo - Please go over the MRI results with your doctor, Dr. Rosado., Percocet has to come from him or your pain managment physician. I am not allowed to write a narcotic prescription for you.ti Wheeler- Dr. Collin Campuzano
[2016-12-03] MEDS ORDERED: LORazepam 1 MG TABLET PO ONE ×2 (10:53→15:27)
[2016-12-03] MEDS ORDERED: HYDROmorphone HCL CARPU-JECT 2 MG/1 ML DISP.SYRIN IM ONE (10:54)
[2016-12-03] MEDS ORDERED: methylPREDNISolone ACET (DEPO) 80 MG/1 ML VIAL IM ONE (10:55)
[2016-12-03] MEDS ORDERED: HYDROmorphone HCL CARPU-JECT 2 MG/1 ML DISP.SYRIN ONE (11:23)
[2016-12-03] MEDS ORDERED: LORazepam 0.5 MG TABLET ONE ×2 (11:24→15:58)
[2016-12-03] MEDS ORDERED: methylPREDNISolone NA SUCC 40 MG/1 ML VIAL ONE (11:24)
[2016-12-03] MEDS ORDERED: ONDANSETRON *ODT* 4 MG TABLET ONE (11:24)
[2016-12-03] MEDS ORDERED: HYDROmorphone HCL 2 MG TABLET PO ONE (15:27)
[2016-12-03] MEDS ORDERED: OXYCODONE/APAP 5/325MG COMBO TABLET PO ONE (15:27)
[2016-12-03] MEDS ORDERED: HYDROmorphone HCL 2 MG TABLET ONE (15:58)
[2016-12-03] MEDS ORDERED: OXYCODONE/APAP 5/325MG COMBO TABLET ONE (15:58)
[2016-12-03 16:46] VITALS: BP 134/94; PULSE 77
== END 2016-12-03 17:01 | disposition home or self-care (01) ==
LOC: JER 09:48
PROC: 3E023GC Introduction of Other Therapeutic Substance into Muscle, Percutaneous Approach (ICD-10-PCS; principal; 2016-12-03)
PROC: 3E0233Z Introduction of Anti-inflammatory into Muscle, Percutaneous Approach (ICD-10-PCS; 2016-12-03)
PROC: 3E023NZ Introduction of Analgesics, Hypnotics, Sedatives into Muscle, Percutaneous Approach (ICD-10-PCS; 2016-12-03)
DX: M54.89 Other dorsalgia (principal); G89.29 Other chronic pain; M54.31 Sciatica, right side
CPT/HCPCS: 72141-TC; 72146-TC; 99282-25

== ENCOUNTER 2019-03-02 13:25 | Inpatient (IN) | payer BC ==
[2019-03-02 13:37] VITALS: BMI 27.3
--- NOTE | 2019-03-02 14:10 | PDOC ---
History of Present Illness - General Chief Complaint: Chest Pain Stated Complaint: Chest Pain Time Seen by Provider: 03/02/19 13:50 - History of Present Illness Initial Comments: Mr. Scott is a 43 y/o male with PMH of CAD, HLD, s/p LAD stent 3 weeks ago, presenting today with constant left sided chest pain that started 6 days ago. Describes the pain as sharp and stabbing in nature. Pain radiates up his left neck and to the left shoulder. Shortness of breath is mildly worse on exertion. Also reports syncope - one episode today, one episode 4 days ago, and one episode 11 days ago. Took his Ticregalor today as prescribed. He reports having similar pain for several days after his stent placement at [facility], but after CT and work up, was told he had costochondritis, and left to follow up with his PCP for pain. He planned to follow up today until he passed out and was brought to the ED. Denies shortness of breath, pleuritic chest pain, fever, nausea, vomiting, cough , abdominal pain, leg swelling. Past History - Past Medical History Allergies/Adverse Reactions: Allergies Allergy/AdvReac Type Severity Reaction Status Date / Time Iodinated Contrast Media Allergy Verified 03/02/19 13:34 [Iodinated Contrast Media - IV Dye] ketorolac tromethamine Allergy Verified 03/02/19 13:34 [From Toradol] Penicillins Allergy Verified 03/02/19 13:34 scallops Allergy Verified 03/02/19 13:34 strawberry Allergy Verified 03/02/19 13:34 Home Medications: Ambulatory Orders Atorvastatin Ca [Lipitor] 40 mg PO HS 12/03/16 Cyclobenzaprine HCl [Flexeril 10 mg] 10 mg PO DAILY 12/03/16 Methylprednisolone [Medrol Dose Fab] 4 mg PO ASDIR #21 tablet 12/03/16 Oxycodone HCl/Acetaminophen [Percocet 5-325 mg Tablet] 1 tab PO Q6H PRN Pregabalin [Lyrica] 75 mg PO BID 12/03/16 Anemia: No Asthma: No Cancer: No Cardiac Disorders: Yes (stent) CVA: No COPD: No CHF: No Dementia: No Diabetes: No GI Disorders: No Disorders: No HTN: No Hypercholesterolemia: Yes (diet controlled) Liver Disease: No Psychiatric Problems: Yes (DEPRESSION,ANXIETY) Seizures: No Thyroid Disease: No - Surgical History Abdominal Surgery: Yes Appendectomy: Yes Cardiac Surgery: No Cholecystectomy: Yes Lung Surgery: No Neurologic Surgery: Yes (neck sx,FUSION, 8 BACK SX) Orthopedic Surgery: Yes (L5 S1 T 12 L1 C5 C6 Rt ankle arthroscopic) - Immunization History Td Vaccination: Yes TDAP Vaccination: Yes Immunization Up to Date: Yes - Suicide/Smoking/Psychosocial Hx Smoking History: Unknown if ever smoked Have you smoked in the past 12 months: No Hx Alcohol Use: No Drug/Substance Use Hx: No Substance Use Type: None Hx Substance Use Treatment: No Review of Systems - Review of Systems Comments:: ROS GENERAL/CONSTITUTIONAL: No fever or chills. No weakness._ HEAD, EYES, EARS, NOSE AND THROAT: No change in vision. No change in hearing. No sore throat._ CARDIOVASCULAR: Reports chest pain. Denies shortness of breath_ RESPIRATORY: Denies cough, hemoptysis_ GASTROINTESTINAL: No nausea, vomiting, diarrhea or constipation._ GENITOURINARY: No dysuria, frequency, or change in urination._ MUSCULOSKELETAL: No joint or muscle swelling or pain. No neck or back pain._ SKIN: No rash_ NEUROLOGIC: No headache, vertigo, or change in strength/sensation. Reports syncope. ENDOCRINE: No increased thirst. No abnormal weight change_ HEMATOLOGIC/LYMPHATIC: No anemia, easy bleeding, or history of blood clots._ ALLERGIC/IMMUNOLOGIC: No hives or skin allergy._ *Physical Exam - Vital Signs Last Vital Signs Temp Pulse Resp BP Pulse Ox 98.5 F 78 18 104/70 99 03/02/19 13:35 03/02/19 13:35 03/02/19 13:35 03/02/19 13:35 03/02/19 13:35 - Physical Exam Comments: GENERAL: Awake, alert, and oriented to person/place/time, in no acute distress_ HEAD: No signs of trauma, normocephalic, atraumatic _ EYES: PERRLA, EOMI, sclera anicteric, conjunctiva clear_ ENT: Hearing grossly normal, nares patent, oropharynx clear without exudates. No uvular deviation. Moist mucosa_ NECK: Normal ROM, supple, no lymphadenopathy, JVD, or masses_ LUNGS: No distress, speaks in full sentences, clear to auscultation bilaterally _ HEART: Regular rate and rhythm, normal S1 and S2, no murmurs appreciated, peripheral pulses normal and equal bilaterally. CHEST: TTP over left side chest. No rash/trauma/lesions noted. ABDOMEN: Soft, nontender, normoactive bowel sounds. No guarding, no rebound. No masses_ EXTREMITIES: Normal inspection, Normal range of motion, no edema. No clubbing or cyanosis_ NEUROLOGICAL: Cranial nerves II through XII grossly intact. Normal speech, normal gait, no focal sensorimotor deficits _ SKIN: Warm, Dry, normal turgor, no rashes or lesions noted_ ED Treatment Course - LABORATORY CBC & Chemistry Diagram: 03/02/19 13:51 03/02/19 13:51 Medical Decision Making - Medical Decision Making 43M s/p stent 3 weeks ago, hx of HLD, CAD, syncope, presenting today with left sided chest pain. Previously seen and worked up extensively at [facility] for similar pain and was d/c with costochondritis. Point TTP over left chest wall. Plan: CBC, CMP, trop, coags, EKG, CXR. 03/02/19 16:54 EKG shows NSR, 74 bpm, no axis deviation, no ST elevation/depression, QTc 415 ms. Trop negative. CXR shows no acute intrathoracic changes. Per [place] prescription monitoring registry, patient has received approximately 80 tabs of percocet over the past 20 days from 4 different physicians. Discussed the case with PCP Dr. Manrique who agrees that further pain management should exclude opioid use. Discussed the case with the hospitalist who agrees to admit the pt for observation and monitoring to r/o ACS. 03/02/19 17:20 The patient has requested to leave the ED against medical advice. The patient reason(s) for leaving include, but are not limited to, the following: does not want to be treated with only non-opioid medications. I believe this patient is of sound mind and competent to refuse medical care. The patient is responding and asking questions appropriately. The patient is oriented to person, place and time. The patient is not psychotic, delusional, suicidal, homicidal or hallucinating. The patient demonstrates a normal mental capacity to make decisions regarding their healthcare. The patient is clinically sober and does not appear to be under the influence of any illicit drugs at this time. The patient has been advised of the risks, in layman terms, of leaving AMA which include, but are not limited to , coma, permanent disability, loss of current lifestyle, delay in diagnosis. Alternatives have been offered - the patient remains steadfast in their wish to leave. The patient has been advised that should they change their mind they are welcome to return to this hospital, or any other, at any time. The patient understands that in no way does an AMA discharge mean that I do not want them to have the best medical care available. To this end, I have provided appropriate prescriptions, referrals, and discharge instructions. The patient did sign AMA paperwork. The above discussion was witnessed by another member of staff. 03/02/19 1725 Patient left the ED AMA prior to evaluation by the hospitalist team and internal medicine residents. *DC/Admit/Observation/Transfer Diagnosis at time of Disposition: Chest pain Qualifiers: Chest pain type: unspecified Qualified Code(s): R07.9 - Chest pain, unspecified - Discharge Dispostion Disposition: AGAINST MEDICAL ADVICE Condition at time of disposition: Stable Decision to Admit order: Yes - Referrals - Patient Instructions - Post Discharge Activity
[2019-03-02] MEDS ORDERED: ACETAMINOPHEN 1000 MG/100 ML VIAL (NON FORMULARY) IVPB ONE (14:39)
[2019-03-02 15:09] LABS: BASO % 0.8 % (0-2.0); EOS % 1.5 % (0-4.5); HEMATOCRIT 41.2 % (35.4-49); HEMOGLOBIN 14.1 GM/dL (11.7-16.9); LYMPH % 22.9 % (8-40); MCH 31.2 pg (25.7-33.7); MCHC 34.3 g/dl (32.0-35.9); MEAN PLT VOLUME 7.4 fl (7.5-11.1); MONO % 6.4 % (3.8-10.2); NEUT % 68.4 % (42.8-82.8); PLATELET COUNT 296 K/MM3 (134-434); RBC 4.53 M/mm3 (4.00-5.60); RDW 14.2 % (11.9-15.9); WHITE BLOOD COUNT 10.3 K/mm3 (4.0-10.0)
[2019-03-02] MEDS ORDERED: ACETAMINOPHEN INJECTION 100 ML IVPB ONE (15:14)
[2019-03-02 15:22] LABS: INR 0.95 (0.83-1.09); PROTHROMBIN TIME (PATIENT) 11.2 SEC (9.7-13.0)
[2019-03-02 15:38] LABS: ALBUMIN 3.8 g/dl (3.4-5.0); ALK PHOS 82 U/L (45-117); ANION GAP 7 MMOL/L (8-16); BLOOD UREA NITROGEN 19.1 mg/dL (7-18); CALCIUM 8.6 mg/dL (8.5-10.1); CHLORIDE 104 mmol/L (98-107); CO2 29 mmol/L (21-32); CREATININE 0.9 mg/dL (0.55-1.3); GLUCOSE,RANDOM 97 mg/dL (74-106); POTASSIUM 4.2 mmol/L (3.5-5.1); SGOT/AST 20 U/L (15-37); SGPT/ALT 47 U/L (13-61); SODIUM 140 mmol/L (136-145); TOT PROT 6.6 g/dl (6.4-8.2)
[2019-03-02 16:13] VITALS: BP 126/50; PULSE 68; TEMP 98.2
--- NOTE | 2019-03-02 16:19 | PDOC ---
Documentation entered by Sheri Delatorre SCRIBE, acting as scribe for Jaquan Nunez MD. Jaquan Nunez MD: This documentation has been prepared by the Nandini henley Sammi, SCRIBE, under my direction and personally reviewed by me in its entirety. I confirm that the documentation accurately reflects all work, treatment, procedures, and medical decision making performed by me. Attending Attestation - Resident Resident Name: Ap Dooley - ED Attending Attestation I have performed the following: I have examined & evaluated the patient, The case was reviewed & discussed with the resident, I agree w/resident's findings & plan, Exceptions are as noted - HPI HPI: 03/02/19 14:41 The patient is a 43 year old male, with a significant PMH of [place], HLD, who presents to the emergency department for evaluation of 6 days of left sided chest pain which is sharp and constant. The patient notes similar symptoms in the past which required a stent. Denies shortness of breath, headache and dizziness. Denies fever, chills, nausea , vomiting, diarrhea and constipation. Denies dysuria, frequency, urgency and hematuria. PCP: Harish Manrique - Physicial Exam PE: 03/04/19 18:24 Reviewed Residents PE - Medical Decision Making 43 years old with CAD status post recent stent recent syncopal episodes with chest pain and syncope today was recently at [facility] for same had a CTA done which was negative for acute pathology We'll observe overnight for chest pain evaluation cardiology consultation We'll avoid opiate pain medication as patient has taken approximately 85 Percocet over the last 3 weeks IV Tylenol ordered we'll consider alternative pain management strategies. Possible pain management consultation Heart Score/ECG Review - ECG Impressions Comment:: 03/02/19 16:30 EKG performed at 1333 demonstrates normal sinus rhythm no ST elevations or T- wave inversions no evidence of WPW, Brugada, prolonged QT
[2019-03-02] MEDS ORDERED: GABAPENTIN 100 MG CAPSULE (FP) ONE (16:56)
[2019-03-02] MEDS: GABAPENTIN 300 MG CAPSULE (FP) PO ONE ×2 (16:56→17:00)
--- NOTE | 2019-03-03 10:55 | EKG ---
Test Reason : Blood Pressure : / mmHG Vent. Rate : 074 BPM Atrial Rate : 074 BPM P-R Int : 158 ms QRS Dur : 094 ms QT Int : 374 ms P-R-T Axes : 040 037 059 degrees QTc Int : 415 ms NORMAL SINUS RHYTHM NORMAL ECG WHEN COMPARED WITH ECG OF 08-SEP-2016 10:05, NO SIGNIFICANT CHANGE WAS FOUND Confirmed by DOROTA CANALES MD ([id number]) on 03/03/2019 10:54:39 AM Referred By: Confirmed By:DOROTA CANALES MD
== END 2019-03-02 17:22 | disposition left against medical advice (07) | DRG 313 ==
LOC: JER 13:25 → JERBED 16:49
PROVIDERS: ADMIT Internal Medicine; ATTEND Internal Medicine
DX: R07.89 Other chest pain (principal); E78.5 Hyperlipidemia, unspecified; I34.0 Nonrheumatic mitral (valve) insufficiency; I25.10 Atherosclerotic heart disease of native coronary artery without angina pectoris; R55 Syncope and collapse; Z95.5 Presence of coronary angioplasty implant and graft; F41.8 Other specified anxiety disorders
CPT/HCPCS: 36415; 71045-TC-FY; 80053; 84484; 85025; 85610; 93005; 93010; 99285-25; J0131

== ENCOUNTER 2020-01-24 06:11 | Inpatient (IN) | payer BC ==
[2020-01-21 11:41] VITALS: BMI 30.7
[2020-01-24] MEDS ORDERED: BACITRACIN 15 GM TUBE TOPICAL OINTMENT ONE (07:13)
[2020-01-24] MEDS ORDERED: THROMBIN (BOVINE) 5,000 UNIT VIAL TP ONE ×2 (07:13→11:57)
[2020-01-24] MEDS ORDERED: PROPOFOL 20 ML ONE ×19 (07:55→13:45)
[2020-01-24] MEDS ORDERED: ROCURONIUM BROMIDE 50 MG/5 ML SYRINGE ONE (08:00)
[2020-01-24] MEDS ORDERED: SUCCINYLCHOLINE CHLORIDE 200 MG/10 ML SYRINGE ONE (08:00)
[2020-01-24] MEDS ORDERED: fentaNYL CITRATE 250 MCG/5 ML VIAL ONE ×4 (08:00→14:32)
[2020-01-24] MEDS ORDERED: MIDAZOLAM HCL 2 MG/2 ML SINGLE DOSE VIAL ONE (08:01)
[2020-01-24] MEDS ORDERED: VANCOMYCIN 1,000 MG VIAL (RESTRICTED TO ID ONLY) IVPB ONE (08:25)
[2020-01-24] MEDS ORDERED: BENZOIN/ALOE VERA/STORAX/TOLU 58 ML BOTTLE ONE (08:45)
[2020-01-24] MEDS ORDERED: NEOSTIGMINE METHYLSULFATE 0.5 MG/1 ML - 10 ML MDV ONE (09:02)
[2020-01-24] MEDS ORDERED: BACITRACIN 50,000 UNITS VIAL NR ONE (09:37)
[2020-01-24] MEDS ORDERED: BUPIVACAINE HCL/PF 0.5% (5 MG/ML) 30 ML VIAL IJ ONE ×2 (09:37)
[2020-01-24] MEDS ORDERED: GLYCOPYRROLATE 0.2 MG/1 ML VIAL ONE ×2 (09:43)
[2020-01-24] MEDS ORDERED: DEXAMETHASONE SOD PHOSPHATE 4 MG/1 ML VIAL ONE (09:43)
[2020-01-24] MEDS ORDERED: VANCOMYCIN 1,000 MG VIAL (RESTRICTED TO ID ONLY) ONE (09:43)
[2020-01-24] MEDS ORDERED: ONDANSETRON 4 MG/2 ML VIAL ONE (09:43)
[2020-01-24] MEDS ORDERED: LIDOCAINE 1%/EPI 1:100000 (20 ML MULTI DOSE VIAL) IJ ONE ×2 (09:45)
[2020-01-24] MEDS ORDERED: ONDANSETRON 4 MG/2 ML VIAL IVPUSH PRN ×2 (14:51→16:14)
[2020-01-24] MEDS ORDERED: ACETAMINOPHEN 325 MG TABLET (FP) PO PRN (14:51)
[2020-01-24] MEDS ORDERED: BISACODYL 10 MG SUPP.RECT RC PRN (14:51)
[2020-01-24] MEDS ORDERED: ACETAMINOPHEN/CAFFEINE/BUTALBITAL 1 TAB PO PRN (14:55)
--- NOTE | 2020-01-24 15:03 | OP ---
Operative Note - Note: Operative Date: 01/24/20 Pre-Operative Diagnosis: T6-7 HNP wth radiculopathy Operation: L T6 thoracotomy; rib resection; T6-7 discectomy, microdissection, partial T6 and T 7 corpectomies; fluoroscopy; anterior T6-7 interbody fusion; anterior instrumentation Pivox large plate and 30 mm screws x2; 11 mm pyramesh cage; autologous rib graft; chest tube Findings: DDD T6-7; attenuated L IP/quad signal which improved spontaneously; deep exposure Surgeon: Gilbert Rosado (Dr Beltran thoracic surgeon) Anesthesia: General Specimens Removed: T6-7 disc Estimated Blood Loss (mls): 250 Operative Report Dictated: Yes
[2020-01-24] MEDS ORDERED: HYDROmorphone *PCA* 10MG/50ML DISP.SYRIN ONE (15:28)
--- NOTE | 2020-01-24 15:41 | OPR ---
Patient Name: Alo Scott MR#: [id number] Procedure Date: 01/24/2020 Date of Admission: 01/24/2020 Preoperative Diagnosis: T6-7 herniated nucleus pulposus Postoperative Diagnosis: Same Procedure: 1. Bronchoscopy;2. Left thoracotomy for exposure of anterior spine;3. 6th rib partial resection and posterior disarticulation; 4. Placement of chest tube. Indication: Treatment of symptomatic HNP. Surgeon(s): Matt Beltran MD Cosurgeon: Dr. Gilbert Rosado Anesthesia: General endotracheal with double-lumen; Findings: Clear bronchoscopy and good placement of double lumen; Left chest: rib resected, hardware placed, good hemostasis, normal lung. Specimens Sent: 1. per Dr. Rosado. Complications: none Drains / Tubes / Catheters: Left chest tube.. Hardware / Implants: na Blood / Fluid Losses: 150cc Post-Operative Condition: Hemodynamically stable in transfer to ICU and extubated. Indications: This patient is a 44 year-old male with multiple spine surgeries who was referred to Dr. Rosado. Dr. Rosado felt his medical history and anatomy were best suited to an anterior approach. After informed consent was obtained, and he understood, he was taken to the operating room for a bronchoscopy, exposure of the spine via VATS or thoracotomy, rib resection, and placement of chest tube. Dr. Rosado dictated his portion of the procedure and I am dictating mine. Details of Procedure: The patient was taken into the operating room and placed supine on the table. He was monitored with pulse oximetry and blood pressure monitoring. Preoperative antibiotics were given. He was intubated after being given intravenous sedation. A bronchoscopy was performed to place the double- lumen correctly. After being prepared and draped and positioned in the right lateral decubitus, we began by with local anesthesia and cut down on the posterior 6th rib and directed our dissection towards the spine. We came around the rib bringing the intercostal off the spine rib and ligating it. We increased our exposure and removed the posterior portion of the 6th rib and disarticulated it. We then proceeded to make a thoracotomy due to the patient's habitus so we could place the hardware. This portion was dictated by Dr. Rosado. We then closed with pericostals, reapproximated the muscle, placed a chest tube, and closed the skin. Sterile dressings were placed. He was transferred to the ICU extubated and in hemodynamically stable condition. I was available at the end of the procedure and will be available to follow him postoperatively as an inpatient and as an outpatient.
[2020-01-24] MEDS ORDERED: ACETAMINOPHEN 1000 MG/100 ML VIAL (NON FORMULARY) IVPB ONE (16:15)
--- NOTE | 2020-01-24 16:16 | CONSULT ---
Consultation: REQUESTING PROVIDER: Dr. Rosado CONSULT REQUEST: We have been asked to medically evaluate this patient for post- op monitoring. HISTORY OF PRESENT ILLNESS: The patient is a 44 year old male with CAD (s/p LAD stent 19), HLD, depression, anxiety, and chronic back pain (herniated discs, fusions and spurs; history of multiple spinal surgeries by various neurosurgeons) who presents s/p left T6 thoracotomy; rib resection; T6-7 discectomy, microdissection, partial T6 and T7 corpectomies; anterior T6-7 interbody fusion; anterior instrumentation Pivox large plate and 30 mm screws x2; 11 mm pyramesh cage; autologous rib graft; and chest tube. Pt is unable to provide further history at this time as he is still recovering from anesthesia in PACU. REVIEW OF SYSTEMS: unable to perform PHYSICAL EXAMINATION Vital Signs - 24 hr 01/24/20 01/24/20 06:50 06:51 Temperature 97.0 F L Pulse Rate 56 L Respiratory 16 Rate Blood Pressure 125/84 O2 Sat by Pulse 97 97 Oximetry (%) GENERAL: Awake but groggy. HEAD: Normal with no signs of trauma. EYES: Pupils equal, round and reactive to light, extraocular movements intact, conjunctiva clear. EARS, NOSE, THROAT: Ears normal, nares patent, moist mucous membranes. NECK: Normal range of motion. LUNGS: Left chest tube draining 300cc bloody drainage. HEART: Regular rate and rhythm. ABDOMEN: Not examined UPPER EXTREMITIES: Warm, well-perfused. No peripheral edema. LOWER EXTREMITIES: Warm, well-perfused. No peripheral edema. NEUROLOGICAL: Cranial nerves II-XII intact. Normal speech. PSYCHIATRIC: Cooperative. Appropriate mood and affect. SKIN: Warm, dry, normal turgor. Active Medications Generic Name Dose Route Start Last Admin Trade Name Freq PRN Reason Stop Dose Admin Acetaminophen 650 mg 01/24/20 14:51 Tylenol - PO Q6H PRN FEVER Acetaminophen/Butalbital/Caffeine 1 tablet 01/24/20 14:55 Fioricet - PO PRN PRN HEADACHE Atorvastatin Calcium 80 mg 01/24/20 22:00 Lipitor - PO HS KONG Bisacodyl 10 mg 01/24/20 14:51 Dulcolax Suppository - RC DAILY PRN CONSTIPATION Diazepam 10 mg 01/24/20 15:00 Valium - PO Q8H KONG Docusate Sodium 100 mg 01/24/20 22:00 Colace - PO TID KONG Escitalopram Oxalate 10 mg 01/24/20 22:00 Lexapro - PO HS KONG Gabapentin 700 mg 01/24/20 22:00 Neurontin - PO HS KONG Gabapentin 600 mg 01/24/20 22:00 Neurontin - PO BID KONG Potassium Chloride/Dextrose/Sod Cl 1,000 mls @ 100 mls/hr 01/24/20 15:00 D5-1/2ns+20 Meq Kcl - IV ASDIR KONG Potassium Chloride/Dextrose/Sod Cl 1,000 mls @ 42 mls/hr 01/24/20 15:00 D5-1/2ns+20 Meq Kcl - IV ASDIR KONG Metoprolol Succinate 25 mg 01/25/20 10:00 Toprol Xl - PO DAILY KONG Non-Formulary Medication 1 tab 01/24/20 22:00 Zolpidem Tartrate [Ambien] PO HS KONG Ondansetron HCl 4 mg 01/24/20 14:51 Zofran Injection IVPUSH Q6H PRN NAUSEA AND/OR VOMITING Vancomycin HCl 1,000 mg 01/24/20 22:00 Vancomycin (Pre-Docked) IVPB 01/25/20 21:59 BID [facility] Protocol ASSESSMENT/PLAN: The patient is a 44 year old male with CAD (s/p LAD stent 19), HLD, depression, anxiety, and chronic back pain (herniated discs, fusions and spurs; history of multiple spinal surgeries by various neurosurgeons) who presents s/p left T6 thoracotomy; rib resection; T6-7 discectomy, microdissection, partial T6 and T7 corpectomies; anterior T6-7 interbody fusion; anterior instrumentation Pivox la rge plate and 30 mm screws x2; 11 mm pyramesh cage; autologous rib graft; and chest tube. #neuro -awake #cardio -HLD -CAD s/p stent -statin -metoprolol succinate 25mg daily #pulm -left chest tube draining bloody drainage -keep Sp O2 >90 #MSK -CREW MESS ATTENDANT pump -oxycodone for breakthrough pain -Fioricet for SOLANO -gabapentin TID #GI -bowel regimen -Zofran 4mg IV Q6H PRN #psych -Lexapro -Valium TID DVT Ppx SCDs FEN D5 1/2 NS with 20meq KCl 100mL/hr monitor labs NPO, clears for breakfast tomorrow Dispo: ICU We will continue to follow the patient. Thank you for this consultative opportunity. Visit type - Emergency Visit Emergency Visit: Yes ED Registration Date: 01/24/20 Care time: The patient presented to the Emergency Department on the above date and was hospitalized for further evaluation of their emergent condition. - New Patient This patient is new to me today: Yes Date on this admission: 01/24/20 - Critical Care Critical Care patient: Yes Total Critical Care Time (in minutes): 36 Critical Care Statement: The care of this patient involved high complexity decision making to prevent further life threatening deterioration of the patient's condition and/or to evaluate & treat vital organ system(s) failure or risk of failure. ATTENDING PHYSICIAN STATEMENT I saw and evaluated the patient. I reviewed the resident's note and discussed the case with the resident. I agree with the resident's findings and plan as documented. SUBJECTIVE: OBJECTIVE: ASSESSMENT AND PLAN:
--- NOTE | 2020-01-24 16:41 | PN ---
Progress Note (short form) - Note Progress Note: NEUROSURGERY In PACU Incisional pain Given fentanyl PE: AF, VSS, O2 sat 95% Uncomfortable HEENT- NC/AT; NEck- supple; Cor- RR; Lungs- CTA, decreased at bases; Abd- benignl; Ext- no sign of DVT CN- intact; MOtor- B LE 5/5; UE 5/5; Sensation- grossly intact LT Dressing intact; CT to suction BLANKET CUTTER HAND for pain Additional po meds prn Valium for muscle relaxation Labs pending Findings and postop pt condition d/w by phone ICU postop
[2020-01-24] MEDS: D5-1/2NS+20 MEQ KCL - 20 MEQ/1,000 ML INFUS.BAG IV SCH (16:45)
[2020-01-24] MEDS: HYDROmorphone *PCA* 10MG/50ML DISP.SYRIN PCA SCH (16:45)
[2020-01-24 17:18] LABS: HEMOGLOBIN 11.8 GM/dL (11.7-16.9); MCH 31.7 pg (25.7-33.7); MCHC 33.7 g/dl (32.0-35.9); MEAN CELL VOLUME 94.1 fl (80-96); MEAN PLT VOLUME 8.9 fl (7.5-11.1); PLATELET COUNT 204 K/MM3 (134-434); RBC 3.72 M/mm3 (4.00-5.60); WHITE BLOOD COUNT 11.7 K/mm3 (4.0-10.0)
[2020-01-24 17:46] LABS: BLOOD UREA NITROGEN 13.6 mg/dL (7-18); CALCIUM 8.3 mg/dL (8.5-10.1); POTASSIUM 4.6 mmol/L (3.5-5.1)
[2020-01-24] MEDS ORDERED: GABAPENTIN 300 MG CAPSULE ONE (21:36)
[2020-01-24] MEDS ORDERED: GABAPENTIN 400 MG CAPSULE ONE (21:37)
[2020-01-24] MEDS ORDERED: GABAPENTIN 100 MG CAPSULE PO SCH (22:00)
[2020-01-24] MEDS ORDERED: VANCOMYCIN 1 GM in D5W (PRE-DOCKED) 1,000 MG/250 ML IVPB SCH (22:00)
[2020-01-24] MEDS ORDERED: ZOLPIDEM TARTRATE 5 MG TABLET PO PRN (22:00)
--- NOTE | 2020-01-24 22:01 | PN ---
Progress Note (short form) - Note Progress Note: Progress Note Subjective: Patient was examined at approximately 9.50pm, explained that he is feeling some pain, it is "letting me know its there but not excruciating". He was complaining of difficulties finding words and said that this is unusual for him, he has never experienced this before. He also feels like the "ball" of his left foot is swollen. Urine in cervantes catheter. Objective: Last Vital Signs Temp Pulse Resp BP Pulse Ox 98.9 F 109 H 14 115/74 95 01/24/20 18:10 01/24/20 18:49 01/24/20 18:49 01/24/20 18:49 01/24/20 18:49 GENERAL: awake, alert, fully oriented, no acute distress, talkative, appears mildly older than stated age HEAD: atraumatic, seborrheic dermatitis perioral and on forehead EYES: PERRL, direct and consensual reflex intact, extraocular movements in tact, voluntary proptosis LUNGS: CTAB, back pain on deep inspiration HEART: tachycardic, normal S1 and S2 without murmurs ABDOMEN: Soft, nontender, not distended, normoactive bowel sounds UPPER EXTREMITIES: warm, well-perfused. No cyanosis. No clubbing. No peripheral edema LOWER EXTREMITIES: warm, well-perfused. No peripheral edema. NEUROLOGICAL: Cranial nerves II-XII intact. Delayed and occasionally slurred speech, full muscle strength in all extremities and symmetrical bilaterally, sensation intact and equal bilaterally on face and all extremities PSYCHIATRIC: Cooperative. Good eye contact with voluntary proptosis. Appropriate mood and affect SKIN: Warm, no rashes or lesions noted, seborrheic dermatitis on face Assessment: 44yo M with PMHx of CAD (s/p LAD stent 19), HLD, depression, anxiety, and chronic back pain (herniated discs, fusions and spurs; history of multiple spinal surgeries by various neurosurgeons) who presents POD 0 s/p left T6 thoracotomy; rib resection; T6-7 discectomy, microdissection, partial T6 and T7 corpectomies; anterior T6-7 interbody fusion; anterior instrumentation Pivox large plate and 30 mm screws x2; 11 mm pyramesh cage; autologous rib graft; and chest tube. Physical exam remarkable for expressive aphasia. Plan: #Neuro chronic back pain s/p surgical pain Expressive Aphasia Depression & Anxiety Insomnia - pain managed with CELLAR PACKER, oxycodone PRN, fioricet, tylenol - continue home med gabapentin for chronic back pain - spoke to Dr. Rosado on the phone in regards to expressive aphasia - recommended watching patient for now as placing patient in a CT scanner would be problematic due to extensive back pain and aphasia is likely due to patient recovering from anesthesia. Dressing changes as per neurosurgery - continue home escitalopram, diazepam, zolpidem #Cardio HLD CAD s/p stent - continue home statin - metoprolol succinate #Pulm s/p thoracotomy bibasilar atelectasis - left chest tube draining bloody drainage - keep Sp O2 > 90 - incentive spirometry #Renal no acute concerns #GI post-operative constipation and nausea - bowel regimen - ondansetron #Heme no acute concerns #ID post-operative patient leukocytosis - likely reactive - vancomycin prophylaxis #Endo no acute concerns #PPX - DVT: SCDs #FEN - D5 1/2 NS with 20meq KCl 100mL/hr - replete lytes PRN - NPO, clears for breakfast tomorrow, advance as per neurosurgery Dispo: ICU -- We will continue to follow the patient. Thank you for this consultative opportunity.
[2020-01-24] MEDS: DOCUSATE SODIUM 100 MG CAPSULE (FP) PO SCH (22:11)
[2020-01-24] MEDS: diazePAM 5 MG TABLET PO SCH (22:11)
[2020-01-24] MEDS: GABAPENTIN PO SCH (22:11)
[2020-01-24] MEDS: ESCITALOPRAM OXALATE 10 MG TABLET PO SCH (22:11)
[2020-01-24] MEDS: VANCOMYCIN 1 GRAM (PRE-DOCKED) 1,000 MG/250 ML BAG IVPB SCH (22:12)
[2020-01-24] MEDS: ATORVASTATIN CA 80 MG TABLET (FP) PO SCH (22:12)
[2020-01-25] MEDS ORDERED: PCA PUMP NR ONE ×5 (00:04→19:11)
[2020-01-25] MEDS: oxyCODONE HCL 5 MG TABLET PO PRN ×3 (01:54→15:01)
[2020-01-25] MEDS: D5-1/2NS+20 MEQ KCL - 20 MEQ/1,000 ML INFUS.BAG IV SCH ×2 (02:01→18:50)
[2020-01-25] MEDS: HYDROmorphone *PCA* 10MG/50ML DISP.SYRIN PCA SCH ×2 (04:57→14:38)
[2020-01-25] MEDS: DOCUSATE SODIUM 100 MG CAPSULE (FP) PO SCH ×3 (05:15→22:45)
[2020-01-25] MEDS: GABAPENTIN 300 MG CAPSULE PO SCH ×2 (05:15→13:33)
[2020-01-25] MEDS: diazePAM 5 MG TABLET PO SCH ×3 (05:20→22:46)
[2020-01-25 08:30] LABS: BASO % 0.1 % (0-2.0); EOS % 0.1 % (0-4.5); HEMATOCRIT 33.6 % (35.4-49); HEMOGLOBIN 11.4 GM/dL (11.7-16.9); LYMPH % 12.3 % (8-40); MCH 31.5 pg (25.7-33.7); MCHC 33.9 g/dl (32.0-35.9); MEAN CELL VOLUME 92.9 fl (80-96); MEAN PLT VOLUME 7.9 fl (7.5-11.1); MONO % 10.4 % (3.8-10.2); NEUT % 77.1 % (42.8-82.8); PLATELET COUNT 203 K/MM3 (134-434); RBC 3.61 M/mm3 (4.00-5.60); RDW 13.8 % (11.9-15.9); WHITE BLOOD COUNT 9.5 K/mm3 (4.0-10.0)
[2020-01-25 08:58] LABS: ALBUMIN 3.3 g/dl (3.4-5.0); BILIRUBIN,TOTAL 0.9 mg/dL (0.2-1); BLOOD UREA NITROGEN 7.9 mg/dL (7-18); CREATININE 0.9 mg/dL (0.55-1.3); MAGNESIUM 2.1 mg/dL (1.8-2.4); PHOSPHOROUS 3.3 mg/dL (2.5-4.9); POTASSIUM 4.1 mmol/L (3.5-5.1); TOT PROT 5.9 g/dl (6.4-8.2)
[2020-01-25] MEDS: metoPROLOL SUCCINATE 25 MG TAB.SR.24H (FP) PO SCH (09:08)
[2020-01-25] MEDS: VANCOMYCIN 1 GRAM (PRE-DOCKED) 1,000 MG/250 ML BAG IVPB SCH (09:10)
--- NOTE | 2020-01-25 10:03 | PN ---
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 Joseph Otoole MD
--- NOTE | 2020-01-25 10:14 | PN ---
Progress Note (short form) - Note Progress Note: Surgery POD #1 Bronchoscopy; 2. Left thoracotomy for exposure of anterior spine; 3. 6th rib partial resection and posterior disarticulation; 4. Placement of chest tube. Patient seen and examined at bedside with no overnight complaints. Patient states the pain is controlled and he denies any radicular symptoms in B/L UE and LE. He is tolerating his diet, using his IS and denies any CP, SOB, N/V, fever or chills. Vital Signs Temp 98.8 F 01/25/20 06:00 Pulse 112 H 01/25/20 09:05 Resp 20 01/25/20 09:05 BP 120/59 L 01/25/20 09:05 Pulse Ox 94 L 01/25/20 09:05 Intake & Output 01/24/20 01/24/20 01/25/20 11:59 23:59 11:59 Intake Total 3300 700 1930 Output Total 631 977 2981 Balance 2700 -50 -880 Intake: IV 3300 700 1200 D5-1/2NS+20 MEQ KCL - 20 1200 meq In 1,000 ml @ 100 mls /hr IV ASDIR [facility] Rx#: [id number] IVPB 250 Oral 480 Output: Chest Tube Drainage 200 410 Left Posterior Chest 410 Urine 414 222 0320 [place] 2400 Estimated Blood Loss 300 Other: Voiding Method Indwelling Catheter Bowel Movement No CBC, BMP 01/25/20 08:00 01/25/20 08:00 PE: A&Ox3, NAD Unlabored resp on 2L NC Chest tube secure in good position and draining bloody d/c @ 570 since being in unit. dressing extending from lateral flank medially-c/d/i with surrounding tissue intact and no tracking erythema or evidence of active d/c. B/L LE compartments soft, supple and non-tender with 5/5 dorsi/plantar flexion. +2DP pulses. CXR: 01/24, left chest tube, weak inspiratiory with bilateral increased lung markings compatible with atelectasis and or some infiltrate but no sign of pneumothorax. Problem List - Problems (1) Thoracotomy scar of left chest Assessment/Plan: 1 Bronchoscopy; 2. Left thoracotomy for exposure of anterior spine; 3. 6th rib partial resection and posterior disarticulation; 4. Placement of chest tube. Patient doing well with poor inspiratory effort. Discussed the importance of IS and encouraged him to take long deep breaths. -Chest tube to water seal, if patient decompensates can place on continuous wall suction. -Repeat chest x-ray at noon today -DVT prophylaxis. -Pain control -Encourage IS Evaluation and plan discussed with Dr Beltran Code(s): L90.5 - SCAR CONDITIONS AND FIBROSIS OF SKIN (2) S/P chest tube placement Assessment/Plan: Code(s): Z93.8 - OTHER ARTIFICIAL OPENING STATUS
--- NOTE | 2020-01-25 11:10 | PN ---
Teaching Attending Note Name of Resident: Quita Guillen ATTENDING PHYSICIAN STATEMENT I saw and evaluated the patient. I reviewed the resident's note and discussed the case with the resident. I agree with the resident's findings and plan as documented. SUBJECTIVE: Pt seen and examined in the ICU. Pain relatively controlled on dilaudid SUPERVISOR CHEMICAL pump. No fevers, chills. No shortness of breath. +flatus. OBJECTIVE: Vital Signs Period Temp Pulse Resp BP Sys/Edouard Pulse Ox Last 24 Hr 98.1 F-99.4 F 93-131 9-22 102-153/54-96 90-100 Intake & Output 01/22/20 01/23/20 01/24/20 01/25/20 23:59 23:59 23:59 23:59 Intake Total 4000 1930 Output Total 1350 2810 Balance 2650 -880 Gen: NAD at rest Heart: RRR Lung: decreased breath sounds at the bases Abd: soft, nontender Ext: no edema CBC, BMP 01/25/20 08:00 01/25/20 08:00 Active Medications Acetaminophen (Tylenol -) 650 mg PO Q6H PRN PRN Reason: FEVER Acetaminophen/Butalbital/Caffeine (Fioricet -) 1 tablet PO Q8H PRN PRN Reason: HEADACHE Atorvastatin Calcium (Lipitor -) 80 mg PO [facility] Last Admin: 01/24/20 22:12 Dose: 80 mg Documented by: Bisacodyl (Dulcolax Suppository -) 10 mg RC DAILY PRN PRN Reason: CONSTIPATION Diazepam (Valium -) 10 mg PO TID COUNTS INCLUDE 234 BEDS AT THE [facility] Last Admin: 01/25/20 05:20 Dose: 10 mg Documented by: Docusate Sodium (Colace -) 100 mg PO TID COUNTS INCLUDE 234 BEDS AT THE [facility] Last Admin: 01/25/20 05:15 Dose: 100 mg Documented by: Escitalopram Oxalate (Lexapro -) 10 mg PO [facility] Last Admin: 01/24/20 22:11 Dose: 10 mg Documented by: Gabapentin (Neurontin -) 600 mg PO BID@0600,1400 COUNTS INCLUDE 234 BEDS AT THE [facility] Last Admin: 01/25/20 05:15 Dose: 600 mg Documented by: Gabapentin 300 mg/ Gabapentin (400 mg) 700 mg PO [facility] Last Admin: 01/24/20 22:11 Dose: 700 mg Documented by: Hydromorphone HCl (Hydromorphone 10 Mg/50 Ml-Ns) 10 mg SUPERVISOR CHEMICAL SUPERVISOR CHEMICAL KONG; Protocol Stop: 01/25/20 16:14 Last Admin: 01/25/20 04:57 Dose: 10 mg Documented by: Potassium Chloride/Dextrose/Sod Cl (D5-1/2ns+20 Meq Kcl -) 20 meq in 1,000 mls @ 100 mls/hr IV ASDIR KONG Last Admin: 01/25/20 02:01 Dose: 100 mls/hr Documented by: Potassium Chloride/Dextrose/Sod Cl (D5-1/2ns+20 Meq Kcl -) 1,000 mls @ 42 mls/hr IV ASDIR KONG Vancomycin HCl (Vancomycin (Pre-Docked)) 1,000 mg in 250 mls @ 166.667 mls/hr IVPB Q12H COUNTS INCLUDE 234 BEDS AT THE [facility] Stop: 01/25/20 11:29 Last Admin: 01/25/20 09:10 Dose: 166.667 mls/hr Documented by: Metoprolol Succinate (Toprol Xl -) 25 mg PO DAILY COUNTS INCLUDE 234 BEDS AT THE [facility] Last Admin: 01/25/20 09:08 Dose: 25 mg Documented by: Ondansetron HCl (Zofran Injection) 4 mg IVPUSH Q6H PRN PRN Reason: NAUSEA AND/OR VOMITING Oxycodone HCl (Roxicodone -) 10 mg PO Q6H PRN PRN Reason: PAIN LEVEL 7 - 10 Last Admin: 01/25/20 09:07 Dose: 10 mg Documented by: Zolpidem Tartrate (Ambien -) 5 mg PO HS PRN PRN Reason: INSOMNIA ASSESSMENT AND PLAN: T6-7 herniated nucleus pulposus s/p L T6 thoracotomy/rib resection/T6-7 discectomy, microdissection/partial T6 and T 7 corpectomies/anterior T6-7 interbody fusion/anterior instrumentation Pivox large plate and 30 mm screws x2; 11 mm pyramesh cage/autologous rib graft/chest tube placement POD 1 CAD Hyperlipidemia Anxiety - pain control - incentive spirometry - monitor chest tube output - PO as tolerated - DVT prophylaxis - disposition per surgery
--- NOTE | 2020-01-25 15:57 | PN ---
Physical Exam: SUBJECTIVE: Patient seen and examined. He reports being in pain, but the medication is helpful in controlling it. He reports using incentive spirometer hourly. OBJECTIVE: Vital Signs Period Temp Pulse Resp BP Sys/Edouard Pulse Ox Last 24 Hr 98.1 F-99.8 F 93-131 9-30 102-153/54-96 88-100 GENERAL: The patient is awake, alert, and fully oriented, in no acute distress. HEAD: Normal with no signs of trauma. EYES: PERRL, extraocular movements intact, conjunctiva clear. ENT: Ears normal, nares patent, moist mucous membranes. NECK: Trachea midline. LUNGS: Clear to auscultation bilaterally, no wheezes, no crackles, no accessory muscle use. Left chest tube in place draining. HEART: Regular rate and rhythm, no murmur. ABDOMEN: Soft, nontender, nondistended, normoactive bowel sounds. EXTREMITIES: Warm, well-perfused, no edema. NEUROLOGICAL: Cranial nerves II through XII grossly intact. Normal speech. PSYCH: Normal mood, normal affect. SKIN: Warm, dry, normal turgor. Laboratory Results - last 24 hr 01/24/20 01/24/20 01/25/20 16:45 16:45 08:00 WBC 11.7 H 9.5 RBC 3.72 L 3.61 L Hgb 11.8 11.4 L Hct 35.0 L D 33.6 L MCV 94.1 92.9 MCH 31.7 31.5 MCHC 33.7 33.9 RDW 14.0 13.8 Plt Count 204 D 203 MPV 8.9 D 7.9 D Absolute Neuts (auto) 7.3 Neutrophils % 77.1 Lymphocytes % 12.3 D Monocytes % 10.4 H Eosinophils % 0.1 D Basophils % 0.1 Nucleated RBC % 0 Sodium 137 Potassium 4.6 Chloride 104 Carbon Dioxide 27 Anion Gap 6 L BUN 13.6 Creatinine 1.0 Est GFR (CKD-EPI)AfAm 107.12 Est GFR (CKD-EPI)NonAf 92.42 Random Glucose 152 H Calcium 8.3 L Phosphorus Magnesium Total Bilirubin AST ALT Alkaline Phosphatase Total Protein Albumin 01/25/20 08:00 WBC RBC Hgb Hct MCV MCH MCHC RDW Plt Count MPV Absolute Neuts (auto) Neutrophils % Lymphocytes % Monocytes % Eosinophils % Basophils % Nucleated RBC % Sodium 139 Potassium 4.1 Chloride 103 Carbon Dioxide 30 Anion Gap 5 L BUN 7.9 Creatinine 0.9 Est GFR (CKD-EPI)AfAm 121.67 Est GFR (CKD-EPI)NonAf 104.98 Random Glucose 123 H Calcium 8.0 L Phosphorus 3.3 Magnesium 2.1 Total Bilirubin 0.9 AST 47 H ALT 28 Alkaline Phosphatase 48 Total Protein 5.9 L Albumin 3.3 L Active Medications Generic Name Dose Route Start Last Admin Trade Name Freq PRN Reason Stop Dose Admin Acetaminophen 650 mg 01/24/20 14:51 Tylenol - PO Q6H PRN FEVER Acetaminophen/Butalbital/Caffeine 1 tablet 01/24/20 14:55 Fioricet - PO Q8H PRN HEADACHE Atorvastatin Calcium 80 mg 01/24/20 22:00 01/24/20 22:12 Lipitor - PO 80 mg HS KONG Administration Bisacodyl 10 mg 01/24/20 14:51 Dulcolax Suppository - RC DAILY PRN CONSTIPATION Diazepam 10 mg 01/24/20 22:00 01/25/20 13:33 Valium - PO 10 mg TID KONG Administration Docusate Sodium 100 mg 01/24/20 22:00 01/25/20 13:33 Colace - PO 100 mg TID KONG Administration Escitalopram Oxalate 10 mg 01/24/20 22:00 01/24/20 22:11 Lexapro - PO 10 mg HS KONG Administration Gabapentin 600 mg 01/25/20 06:00 01/25/20 13:33 Neurontin - PO 600 mg BID@0600,1400 KONG Administration Gabapentin 300 mg/ Gabapentin 700 mg 01/24/20 22:00 01/24/20 22:11 400 mg PO 700 mg HS KONG Administration Hydromorphone HCl 10 mg 01/24/20 16:15 01/25/20 14:38 Hydromorphone 10 Mg/50 Ml-Ns CERTIFIED MASTER LOCKSMITH 01/25/20 16:14 10 mg CERTIFIED MASTER LOCKSMITH KONG Administration Protocol Potassium Chloride/Dextrose/Sod Cl 20 meq in 1,000 mls @ 100 mls/hr 01/24/20 15:00 01/25/20 02:01 D5-1/2ns+20 Meq Kcl - IV 100 mls/hr ASDIR KONG Administration Potassium Chloride/Dextrose/Sod Cl 1,000 mls @ 42 mls/hr 01/24/20 15:00 D5-1/2ns+20 Meq Kcl - IV ASDIR KONG Metoprolol Succinate 25 mg 01/25/20 10:00 01/25/20 09:08 Toprol Xl - PO 25 mg DAILY KONG Administration Ondansetron HCl 4 mg 01/24/20 16:14 01/25/20 14:51 Zofran Injection IVPUSH 4 mg Q6H PRN Administration NAUSEA AND/OR VOMITING Oxycodone HCl 10 mg 01/24/20 16:42 01/25/20 15:01 Roxicodone - PO 10 mg Q6H PRN Administration PAIN LEVEL 7 - 10 Zolpidem Tartrate 5 mg 01/24/20 22:00 Ambien - PO HS PRN INSOMNIA ASSESSMENT/PLAN: The patient is a 44 year old male with CAD (s/p LAD stent 19), HLD, depression, anxiety, and chronic back pain (herniated discs, fusions and spurs; history of multiple spinal surgeries by various neurosurgeons) who presents s/p left T6 thoracotomy; rib resection; T6-7 discectomy, microdissection, partial T6 and T7 corpectomies; anterior T6-7 interbody fusion; anterior instrumentation Pivox large plate and 30 mm screws x2; 11 mm pyramesh cage; autologous rib graft; and chest tube. #neuro -awake and alert #cardio -HLD -CAD s/p stent -statin -metoprolol succinate 25mg daily #pulm -left chest tube draining bloody drainage -on NC, saturating in upper 80s, likely due to splinting -tube was on suction but switched off today, anticipate drain removal tomorrow #MSK -CERTIFIED MASTER LOCKSMITH pump -oxycodone for breakthrough pain -difficulty with controlling pt's pain, reached out to anesthesia for recommendations -Fioricet for SOLANO -gabapentin TID -PT #GI -bowel regimen -Zofran 4mg IV Q6H PRN #psych -Lexapro -Valium TID DVT Ppx SCDs FEN D5 1/2 NS with 20meq KCl 100mL/hr monitor labs clears Dispo: ICU FULL CODE Visit type - Emergency Visit Emergency Visit: Yes ED Registration Date: 01/24/20 Care time: The patient presented to the Emergency Department on the above date and was hospitalized for further evaluation of their emergent condition. - New Patient This patient is new to me today: No - Critical Care Critical Care patient: Yes Total Critical Care Time (in minutes): 36 Critical Care Statement: The care of this patient involved high complexity decision making to prevent further life threatening deterioration of the patient's condition and/or to evaluate & treat vital organ system(s) failure or risk of failure. ATTENDING PHYSICIAN STATEMENT I saw and evaluated the patient. I reviewed the resident's note and discussed the case with the resident. I agree with the resident's findings and plan as documented. SUBJECTIVE: OBJECTIVE: ASSESSMENT AND PLAN:
[2020-01-25] MEDS: guaiFENesin 600 MG TABLET.ER (FP) PO SCH ×2 (17:53→22:43)
[2020-01-25] MEDS ORDERED: ALPRAZolam 0.25 MG TABLET PO ONE (18:03)
--- NOTE | 2020-01-25 18:22 | PN ---
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
[2020-01-25] MEDS ORDERED: oxyCODONE HCL 10 MG SUSTAINED ACTING TABLET PO SCH (22:00)
[2020-01-25] MEDS ORDERED: GABAPENTIN 400 MG CAPSULE ONE (22:41)
[2020-01-25] MEDS ORDERED: GABAPENTIN 300 MG CAPSULE ONE (22:41)
[2020-01-25] MEDS: ATORVASTATIN CA 80 MG TABLET (FP) PO SCH (22:43)
[2020-01-25] MEDS: GABAPENTIN PO SCH (22:44)
[2020-01-25] MEDS: ESCITALOPRAM OXALATE 10 MG TABLET PO SCH (22:44)
[2020-01-25] MEDS: oxyCODONE HCL 10 MG SUSTAINED ACTING TABLET PO SCH (22:46)
[2020-01-25] MEDS: VANCOMYCIN 1 GM in D5W (PRE-DOCKED) 1,000 MG/250 ML IVPB SCH (22:52)
[2020-01-26] MEDS: oxyCODONE HCL 5 MG TABLET PO PRN ×2 (01:03→06:36)
[2020-01-26] MEDS ORDERED: HYDROmorphone HCl 2 MG/ML VIAL IVPUSH ONE (01:58)
[2020-01-26] MEDS: oxyCODONE HCL 10 MG SUSTAINED ACTING TABLET PO SCH ×2 (05:11→07:58)
[2020-01-26] MEDS: diazePAM 5 MG TABLET PO SCH ×3 (05:11→22:51)
[2020-01-26] MEDS: GABAPENTIN 300 MG CAPSULE PO SCH ×2 (05:13→17:43)
[2020-01-26] MEDS: DOCUSATE SODIUM 100 MG CAPSULE (FP) PO SCH ×3 (05:14→22:50)
[2020-01-26 06:28] LABS: HEMATOCRIT 34.2 % (35.4-49); HEMOGLOBIN 11.5 GM/dL (11.7-16.9); MCH 31.3 pg (25.7-33.7); MCHC 33.6 g/dl (32.0-35.9); MEAN CELL VOLUME 93.1 fl (80-96); MEAN PLT VOLUME 8.1 fl (7.5-11.1); PLATELET COUNT 204 K/MM3 (134-434); RBC 3.67 M/mm3 (4.00-5.60); RDW 13.3 % (11.9-15.9); WHITE BLOOD COUNT 12.7 K/mm3 (4.0-10.0)
--- NOTE | 2020-01-26 08:25 | PN ---
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 C/o pain L chest Pt seen at 0815 this am PE: T 100.9, VSS, mildly tachycardic; O2 sat 85-95%; On O2 high-flow Chest tube- 200 cc in 24 hours Awake/alert HEENT- NC/AT; NEck- supple; Cor- RR; Lungs- CTA, decreased at B bases; Abd- benign; Ext- no sign of DVT CN- intact; MOtor- B LE 5/5; UE 5/5; Sensation- grossly intact LT Dressing intact, small spot of bloody drainage mid-incision; CT to suction Labs reviewed; WBC 12.7, Hgb 11.5 CXR- findings noted- decreased volume, no ptx Adjust meds Additional po meds prn Valium for muscle relaxation Encouraged incentive spirometry, only bringing up <500 cc due to pain Bowel regimen Chest tube management for CT surgery, but would prefer removal to possibly reduce pain and allow mobilization Medication adjustment to optimize pain control D/w JAVA PROGRAMMER ANALYST and PA
[2020-01-26] MEDS ORDERED: oxyCODONE HCL 5 MG TABLET PO PRN (08:58)
[2020-01-26] MEDS ORDERED: ACETAMINOPHEN 325 MG TABLET (FP) PO PRN (09:04)
[2020-01-26] MEDS ORDERED: ALPRAZolam 0.25 MG TABLET PO ONE (09:45)
[2020-01-26] MEDS ORDERED: oxyCODONE HCL 10 MG SUSTAINED ACTING TABLET PO ONE (09:50)
[2020-01-26] MEDS ORDERED: oxyCODONE HCL 10 MG SUSTAINED ACTING TABLET ONE (09:53)
[2020-01-26] MEDS: metoPROLOL SUCCINATE 25 MG TAB.SR.24H (FP) PO SCH (09:57)
[2020-01-26] MEDS: guaiFENesin 600 MG TABLET.ER (FP) PO SCH ×2 (09:57→22:51)
[2020-01-26] MEDS ORDERED: oxyCODONE HCL 20 MG SUSTAINED ACTING TABLET PO SCH (10:00)
--- NOTE | 2020-01-26 10:23 | PN ---
Progress Note (short form) - Note Progress Note: Surgery POD #2 Bronchoscopy; 2. Left thoracotomy for exposure of anterior spine; 3. 6th rib partial resection and posterior disarticulation; 4. Placement of chest tube. Patient seen and examined at bedside with Dr Rosado. His TAIL BOARD MAN was removed last night and patient was transitioned to oral pain control as he was very lethargic and the staff felt that this worsened his respirations and overall effort which has been poor throughout his post op course. He has continued to have low O2 saturation @ 88% despite being on high flow O2, and use of IS. Nursing confirms the patient has continued to have poor inspiratory effort and not coughing to clear lungs. We have discussed with the patient again at length how to use the IS and take adequate breaths. He is extremely anxious and states his pain is not controlled. We have also discussed a new pain regimen which we will adjust this morning. He did have a slight increase in WBCs and a low grad fever at 100.9 this morning which I have discussed with both Dr Rosado and Dr Beltran and they feel it is likely related to his atelectasis and poor inspiratory effort/ lack of movement and pain control. He is tolerating his diet, trying to use his IS and denies any CP, SOB, N/V, fever or chills. Vital Signs Temp 100.9 F H 01/26/20 06:00 Pulse 106 H 01/26/20 06:00 Resp 20 01/26/20 06:00 BP 111/67 01/26/20 06:00 Pulse Ox 90 L 01/26/20 08:54 Intake & Output 01/25/20 01/25/20 01/26/20 11:59 23:59 11:59 Intake Total 1930 1390 730 Output Total 2810 685 415 Balance -880 705 315 Intake: IV 1200 500 0 D5-1/2NS+20 MEQ KCL - 20 1200 500 0 meq In 1,000 ml @ 100 mls /hr IV ASDIR [facility] Rx#: [id number] IVPB 250 250 250 Oral 480 640 480 Output: Chest Tube Drainage 410 285 115 Left Posterior Chest 410 285 115 Urine 2400 400 300 Boyle 2400 400 300 Other: Voiding Method Indwelling Catheter Indwelling Catheter Bowel Movement No No No CBC, BMP 01/26/20 05:15 01/25/20 08:00 PE: A&Ox3, NAD splinting (attempting IS) on high flow O2, no accessory muscle use Chest tube secure in good position-waterseal yesterday and draining dark bloody d/c @ 200 after being placed on waterseal yesterday. dressing extending from lateral flank medially-c/d/i with surrounding tissue intact and no tracking erythema or evidence of active d/c. B/L LE compartments soft, supple and non-tender with 5/5 dorsi/plantar flexion. +2DP pulses. CXR: 01/25, left chest tube, weak inspiratiory with bilateral pulmonary and pleural changes. There is no sign of pneumothorax but there is pleural fluid iwth basiliar atelectasis and or infiltrates. Problem List - Problems (1) Thoracotomy scar of left chest Assessment/Plan: POD #2: 1 Bronchoscopy; 2. Left thoracotomy for exposure of anterior spine; 3. 6th rib partial resection and posterior disarticulation; 4. Placement of chest tube. Patient with poor pain control and poor inspiratory effort with low grade fever and slight elevation in WBC likely related to atelecatisis however PE cannot be ruled out at this time. -Stat CTA to rule out PE although low probability -Chest tube to water seal, will plan to d/c pending CTA results later today -trend fever curve -trend daily labs -Pain control regimen reviewed and address with Dr Rosado this morning -DVT prophylaxis. -encourage IS deep breathing and coughing -OOB to chair for meals Evaluation and plan discussed with Dr Beltran and Dr Rosado Code(s): L90.5 - SCAR CONDITIONS AND FIBROSIS OF SKIN (2) S/P chest tube placement Code(s): Z93.8 - OTHER ARTIFICIAL OPENING STATUS
--- NOTE | 2020-01-26 10:56 | OP ---
DATE OF OPERATION: 01/24/2020 PREOPERATIVE DIAGNOSES: 1. Central and right paracentral T6-T7 disk herniation with spinal cord impingement and thoracic radiculopathy. 2. History of right T6 laminectomy with epidural fibrosis. POSTOPERATIVE DIAGNOSES: 1. Central and right paracentral T6-T7 disk herniation with spinal cord impingement and thoracic radiculopathy/myelopathy. 2. History of right T6 laminectomy with epidural fibrosis. ATTENDING SURGEON: Gilbert Rosado MD THORACIC SURGEON: Matt Beltran MD PROCEDURE: 1. Left-sided transthoracic approach for T6-7 diskectomy. 2. Partial corpectomy T6 and T7 for spinal cord decompression (87285, 90372). 3. Microsurgical dissection (00082). 4. Anterior thoracic fusion T6-7 (85046). 5. Utilization of intervertebral 12-mm power mesh cage packed with autologous morselized bone graft (06027). 6. Anterior surgical instrumentation T6-T7 with [employer] PIVOX titanium system with a large plate and 30-mm screws (37910). 7. Intraoperative fluoroscopy for localization and screw placement (85331-60). ANESTHESIA: General endotracheal. ANESTHESIOLOGIST: Joseph Otoole MD FINDINGS: 1. Anterior epidural fibrosis, right greater than left. 2. Periodically attenuated proximal left lower extremity MEP signals. 3. Marked degenerative disk space narrowing T6-7. INDICATIONS: Patient is a 44-year-old male with history of progressive worsening right T7 radiculopathy. He was found to have a disk herniation at T6-7 and previously underwent right T6 laminectomy elsewhere. He now complains of worsening thoracic radiculopathy. The patient is advised to live with his symptoms or undergo further conservative medical treatment, but he cannot live with his symptoms and opts for surgical intervention. The risks of procedure include but are not limited to bleeding, infection, paralysis, neurological injury, CSF leak, pulmonary issues, postthoracotomy syndrome and other risks of general anesthesia including increased thromboembolic risk. The patient understands the indications for the procedure, procedure in detail, risks and benefits and alternatives for treatment of his thoracic spine condition and wished to proceed with surgery. No guarantees were given for a favorable outcome. PROCEDURE IN DETAIL: The patient was taken to the operating room. He was placed in the supine position. After general anesthesia was induced and appropriate monitors were placed, the double-lumen endotracheal tube was inserted and it was checked with bronchoscopy per Anesthesia and Thoracic Surgery. At this point, the patient was turned onto right lateral decubitus position with an axillary roll and a wasserman bag. All pressure points were checked and padded. A Boyle catheter was also inserted. SSEP, EMG and MEP electrodes were placed by the reactor technician. The prior posterior thoracic laminectomy incision was marked with a metallic marker, and fluoroscope was brought into the AP position to pinky the exposure to be T6-7 and multiple fluoroscopic images were then retained. The area of the lateral thoracic approach was clipped. The hair over the thoracic incision was clipped and area was cleaned with alcohol and prepped with Betadine. After patient was sterilely prepped and draped, initially a small posterolateral incision was made posterior to the posterior axillary line. Because the exposure was extremely difficult due to the patient's paraspinal muscle size as well as the depth of the exposure, it was felt that a limited posterior rib resection would not be adequate to gain access to the vertebral body. At this point, the procedure was turned over to the thoracic surgery service to perform the thoracotomy. The rib resection was also carried out. After the self-retaining retractors were inserted and the levels were protected with lap sponges, the left lung was deflated. The spinal needle was inserted into the T6-7 disk space and an AP fluoroscopic image was obtained, ascertaining the position. After this was done, the needle was removed and the disk was incised with a No. 15 blade. Disk material was removed with a pituitary rongeur. Because of the extremely collapsed disk space, partial corpectomy needed to be carried out at T6 and T7 to gain access to the disk space as well as decompress the spinal canal and the spinal cord. This portion of the procedure was performed with loupe magnification. Microsurgical techniques were utilized. The disk material removal was accomplished with pituitary rongeur, downgoing curette as well as upgoing curette. After diskectomy was completed and the partial corpectomy was completed at T6 and T7, the dura was dissected free of the anterior compressive disk pathology. Epidural lysis of adhesions was also carried out as there was moderate degree of fibrosis. The wound was irrigated with antibiotic and irrigation. The procedure was difficult because of the depth of exposure. The lung was intermittently reinflated to allow for optimal oxygenation. At this point, the space was sized to be approximately 11 to 12 mm. Initially an 11-mm Pyramesh cage was used. After, the patient was found to have attenuated MEP signal at the left iliopsoas and quadriceps even prior to the cage insertion, the signal continued. The anterior cervical plating system with Medtronic PIVOX system was placed. However, fluoroscopic imaging verification of position was extremely difficult especially in the lateral plane. The cage was found to be in satisfactory midline position. However, the posterior margin could not be well visualized. The cage was then removed, and a slightly larger 12-mm Pyramesh cage was placed more anteriorly. It was packed with autologous morselized rib graft which was harvested earlier. At this point, a large Medtronic PIVOX plating system was first awled, and then the 30-mm screws were placed into both at the T6 and T7 vertebral body. Good bone purchase was noted. The wound was once again irrigated with antibiotic and irrigation. Attempt was used to place a more posterior situated plating system, but because of poor fluoroscopic visualization, that procedure was aborted. The final interbody implant utilized was a power mesh cage 12 x 14 x 17 mm. At this point, the locking mechanism of the plating system was engaged. The wound was once again irrigated with antibiotic and irrigation. The closure was performed by thoracic surgery service under a separate heading. The patient tolerated the procedure well and was extubated in the operating room. His proximal left lower extremity MEP signal attenuation did improve back to baseline by the time of the wound closure. The OR timeout procedure was followed. The patient received 1 dose of 1 g vancomycin powder to incision. The patient was turned back to the supine position and extubated in the operating room. He was moving bilateral upper and lower extremities in the recovery room. The was notified as to intraoperative finding as well as the patient's postoperative condition. Inessa [id number] [facility] CHILDREN'S HOSPITALYessy
[2020-01-26] MEDS: VANCOMYCIN 1 GM in D5W (PRE-DOCKED) 1,000 MG/250 ML IVPB SCH (11:29)
--- NOTE | 2020-01-26 11:58 | PN ---
Teaching Attending Note Name of Resident: Quita Guillen ATTENDING PHYSICIAN STATEMENT I saw and evaluated the patient. I reviewed the resident's note and discussed the case with the resident. I agree with the resident's findings and plan as documented. SUBJECTIVE: Pt seen and examined in the ICU. Placed on HFOT 95% FiO2 for acute hypoxic respiratory failure. CXR with significant atelectasis. OBJECTIVE: Vital Signs Period Temp Pulse Resp BP Sys/Edouard Pulse Ox Last 24 Hr 99.3 F-100.9 F 97-130 14-30 104-146/61-88 88-99 Intake & Output 01/23/20 01/24/20 01/25/20 01/26/20 23:59 23:59 23:59 23:59 Intake Total 4000 3320 730 Output Total 1350 3495 415 Balance 2650 -175 315 Gen: NAD at rest Heart: RRR Lung: decreased breath sounds at the bases Abd: soft, nontender Ext: no edema CBC, BMP 01/26/20 05:15 01/25/20 08:00 Active Medications Acetaminophen (Tylenol -) 650 mg PO Q6H PRN PRN Reason: fever Acetaminophen/Butalbital/Caffeine (Fioricet -) 1 tablet PO Q8H PRN PRN Reason: HEADACHE Atorvastatin Calcium (Lipitor -) 80 mg PO [facility] Last Admin: 01/25/20 22:43 Dose: 80 mg Documented by: Bisacodyl (Dulcolax Suppository -) 10 mg RC DAILY PRN PRN Reason: CONSTIPATION Diazepam (Valium -) 10 mg PO TID [facility] Last Admin: 01/26/20 05:11 Dose: Not Given Documented by: Docusate Sodium (Colace -) 100 mg PO TID [facility] Last Admin: 01/26/20 05:14 Dose: 100 mg Documented by: Escitalopram Oxalate (Lexapro -) 10 mg PO [facility] Last Admin: 01/25/20 22:44 Dose: 10 mg Documented by: Gabapentin (Neurontin -) 600 mg PO BID@0600,1400 [facility] Last Admin: 01/26/20 05:13 Dose: 600 mg Documented by: Gabapentin 300 mg/ Gabapentin (400 mg) 700 mg PO [facility] Last Admin: 01/25/20 22:44 Dose: 700 mg Documented by: Guaifenesin (Mucinex -) 600 mg PO BID [facility] Last Admin: 01/26/20 09:57 Dose: 600 mg Documented by: Hydromorphone HCl (Dilaudid Vial -) 2 mg IVPUSH Q4H PRN PRN Reason: PAIN LEVEL 7 - 10 Potassium Chloride/Dextrose/Sod Cl (D5-1/2ns+20 Meq Kcl -) 1,000 mls @ 42 mls/hr IV ASDIR [facility] Metoprolol Succinate (Toprol Xl -) 25 mg PO DAILY [facility] Last Admin: 01/26/20 09:57 Dose: 25 mg Documented by: Ondansetron HCl (Zofran Injection) 4 mg IVPUSH Q6H PRN PRN Reason: NAUSEA AND/OR VOMITING Last Admin: 01/25/20 14:51 Dose: 4 mg Documented by: Oxycodone HCl (Roxicodone -) 10 mg PO Q4H PRN PRN Reason: breakthrough pain Oxycodone HCl (Oxycontin -) 20 mg PO BID [facility] Vancomycin HCl (Vancomycin (Pre-Docked)) 1,000 mg IVPB BID [facility]; Protocol Stop: 01/26/20 21:59 Last Admin: 01/26/20 11:29 Dose: 1,000 mg Documented by: Zolpidem Tartrate (Ambien -) 5 mg PO HS PRN PRN Reason: INSOMNIA ASSESSMENT AND PLAN: Acute Hypoxic Respiratory Failure Atelectasis T6-7 herniated nucleus pulposus s/p L T6 thoracotomy/rib resection/T6-7 discectomy, microdissection/partial T6 and T 7 corpectomies/anterior T6-7 interbody fusion/anterior instrumentation Pivox large plate and 30 mm screws x2; 11 mm pyramesh cage/autologous rib graft/chest tube placement POD 1 CAD Hyperlipidemia Anxiety Anemia - pain control - incentive spirometry - chest tube per surgery - titrate HFOT to keep SpO2 >90% - PO as tolerated - DVT prophylaxis - continue ICU monitoring
[2020-01-26] MEDS ORDERED: diphenhydrAMINE HCL 25 MG CAPSULE (FP) PO ONE (11:59)
[2020-01-26] MEDS ORDERED: predniSONE 20 MG TABLET (UD) PO ONE (12:00)
--- NOTE | 2020-01-26 13:39 | PN ---
Progress Note (short form) - Note Progress Note: Patient stable c/o pain score of 5-7/10 for which he is on medication.NATIONAL OPELINT ANALYST was DC yesterday.No any anesthesia related problem.Patient DC from the anesthesia care.
--- NOTE | 2020-01-26 14:41 | PN ---
Physical Exam: SUBJECTIVE: Patient seen and examined. He reports pain in his left axilla and lateral upper rib cage. Pain medications help somewhat, but he is asking for better control. He denies chest pain, shortness of breath, nausea, or vomiting. + flatus. He is using incentive spirometer regularly. OBJECTIVE: Vital Signs Period Temp Pulse Resp BP Sys/Edouard Pulse Ox Last 24 Hr 99.3 F-100.9 F 97-130 14-30 104-146/61-88 89-99 GENERAL: The patient is awake, alert, and oriented. Drowsy. HEAD: Normal with no signs of trauma. EYES: PERRL, extraocular movements intact, conjunctiva clear. ENT: Ears normal, nares patent, moist mucous membranes. NECK: Trachea midline. LUNGS: Lack of deep inspiration, bronchial sounds, no accessory muscle use. Left chest tube in place draining. HEART: Regular rate and rhythm, no murmur. ABDOMEN: Soft, nontender, nondistended, normoactive bowel sounds. EXTREMITIES: Warm, well-perfused, no edema. NEUROLOGICAL: Cranial nerves II through XII grossly intact. Normal speech. PSYCH: Anxious, tearful. SKIN: Warm, dry, normal turgor. Laboratory Results - last 24 hr 01/26/20 05:15 WBC 12.7 H RBC 3.67 L Hgb 11.5 L Hct 34.2 L MCV 93.1 MCH 31.3 MCHC 33.6 RDW 13.3 Plt Count 204 MPV 8.1 Active Medications Generic Name Dose Route Start Last Admin Trade Name Freq PRN Reason Stop Dose Admin Acetaminophen 650 mg 01/26/20 09:04 Tylenol - PO Q6H PRN fever Acetaminophen/Butalbital/Caffeine 1 tablet 01/24/20 14:55 Fioricet - PO Q8H PRN HEADACHE Atorvastatin Calcium 80 mg 01/24/20 22:00 01/25/20 22:43 Lipitor - PO 80 mg HS KONG Administration Bisacodyl 10 mg 01/24/20 14:51 Dulcolax Suppository - RC DAILY PRN CONSTIPATION Diazepam 10 mg 01/24/20 22:00 01/26/20 05:11 Valium - PO Not Given TID KONG Docusate Sodium 100 mg 01/24/20 22:00 01/26/20 05:14 Colace - PO 100 mg TID KONG Administration Escitalopram Oxalate 10 mg 01/24/20 22:00 01/25/20 22:44 Lexapro - PO 10 mg HS KONG Administration Gabapentin 600 mg 01/25/20 06:00 01/26/20 05:13 Neurontin - PO 600 mg BID@0600,1400 KONG Administration Gabapentin 300 mg/ Gabapentin 700 mg 01/24/20 22:00 01/25/20 22:44 400 mg PO 700 mg HS KONG Administration Guaifenesin 600 mg 01/25/20 16:50 01/26/20 09:57 Mucinex - PO 600 mg BID KONG Administration Hydromorphone HCl 2 mg 01/26/20 09:56 Dilaudid Vial - IVPUSH Q4H PRN PAIN LEVEL 7 - 10 Potassium Chloride/Dextrose/Sod Cl 1,000 mls @ 42 mls/hr 01/24/20 15:00 D5-1/2ns+20 Meq Kcl - IV ASDIR [facility] Metoprolol Succinate 25 mg 01/25/20 10:00 01/26/20 09:57 Toprol Xl - PO 25 mg DAILY KONG Administration Ondansetron HCl 4 mg 01/24/20 16:14 01/25/20 14:51 Zofran Injection IVPUSH 4 mg Q6H PRN Administration NAUSEA AND/OR VOMITING Oxycodone HCl 10 mg 01/26/20 08:58 Roxicodone - PO Q4H PRN breakthrough pain Oxycodone HCl 20 mg 01/26/20 22:00 Oxycontin - PO BID [facility] Vancomycin HCl 1,000 mg 01/25/20 22:00 01/26/20 11:29 Vancomycin (Pre-Docked) IVPB 01/26/20 21:59 1,000 mg BID KONG Administration Protocol Zolpidem Tartrate 5 mg 01/24/20 22:00 Ambien - PO HS PRN INSOMNIA ASSESSMENT/PLAN: The patient is a 44 year old male with CAD (s/p LAD stent 19), HLD, depression, anxiety, and chronic back pain (herniated discs, fusions and spurs; history of multiple spinal surgeries by various neurosurgeons) who presents s/p left T6 thoracotomy; rib resection; T6-7 discectomy, microdissection, partial T6 and T7 corpectomies; anterior T6-7 interbody fusion; anterior instrumentation Pivox large plate and 30 mm screws x2; 11 mm pyramesh cage; autologous rib graft; and chest tube. 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 - New Patient This patient is new to me today: Yes Date on this admission: 01/26/20 - Critical Care Critical Care patient: Yes Total Critical Care Time (in minutes): 36 Critical Care Statement: The care of this patient involved high complexity decision making to prevent further life threatening deterioration of the patient's condition and/or to evaluate & treat vital organ system(s) failure or risk of failure. ATTENDING PHYSICIAN STATEMENT I saw and evaluated the patient. I reviewed the resident's note and discussed the case with the resident. I agree with the resident's findings and plan as documented. SUBJECTIVE: OBJECTIVE: ASSESSMENT AND PLAN:
[2020-01-26] MEDS: HYDROmorphone HCl 2 MG/ML VIAL IVPUSH PRN ×2 (14:50→20:21)
[2020-01-26] MEDS ORDERED: ALBUTEROL SO4 2.5/IPRATROPIUM 0.5 INH SOL 3 ML VIAL.NEB. NEB PRN (20:40)
[2020-01-26] MEDS ORDERED: GABAPENTIN 300 MG CAPSULE ONE (22:44)
[2020-01-26] MEDS ORDERED: GABAPENTIN 400 MG CAPSULE ONE (22:44)
[2020-01-26] MEDS: oxyCODONE HCL 20 MG SUSTAINED ACTING TABLET PO SCH (22:50)
[2020-01-26] MEDS: ESCITALOPRAM OXALATE 10 MG TABLET PO SCH (22:50)
[2020-01-26] MEDS: ATORVASTATIN CA 80 MG TABLET (FP) PO SCH (22:50)
[2020-01-26] MEDS: GABAPENTIN PO SCH (22:50)
[2020-01-27] MEDS: HYDROmorphone HCl 2 MG/ML VIAL IVPUSH PRN ×3 (02:15→15:32)
[2020-01-27] MEDS: diazePAM 5 MG TABLET PO SCH ×3 (05:52→21:05)
[2020-01-27] MEDS: DOCUSATE SODIUM 100 MG CAPSULE (FP) PO SCH ×3 (05:53→21:06)
[2020-01-27] MEDS: GABAPENTIN 300 MG CAPSULE PO SCH ×2 (05:53→14:42)
--- NOTE | 2020-01-27 08:42 | PN ---
Physical Exam: SUBJECTIVE: Patient seen and examined Patient a/ox3 anxious overnight. Consolement reinsurance given. Patient desat notified. Non-rebreather applied and consolement given,. O2 sat 95%. Deep breathing encouraged. Incentive spirometer 250. High flow reapplied and Settings changed. Resident notified notified. Chest tube to low suction 50cc noted - pain management; Patient seen and examined. He reports pain in his left axilla and lateral upper rib cage. Pain medications help somewhat, but he is asking for better control. He denies chest pain, shortness of breath, nausea, or vomiting. + flatus. He is using incentive spirometer regularly. OBJECTIVE: Vital Signs Period Temp Pulse Resp BP Sys/Edouard Pulse Ox Last 24 Hr 98 F-100 F 91-211 14- 114-133/55-93 89-94 GENERAL: The patient is awake, alert, and oriented. Drowsy. HEAD: Normal with no signs of trauma. EYES: PERRL, extraocular movements intact, conjunctiva clear. ENT: Ears normal, nares patent, moist mucous membranes. NECK: Trachea midline. LUNGS: Lack of deep inspiration, bronchial sounds, no accessory muscle use. Left chest tube in place draining. HEART: Regular rate and rhythm, no murmur. ABDOMEN: Soft, nontender, nondistended, normoactive bowel sounds. EXTREMITIES: Warm, well-perfused, no edema. NEUROLOGICAL: Cranial nerves II through XII grossly intact. Normal speech. PSYCH: Anxious, tearful. SKIN: Warm, dry, normal turgor. Active Medications Generic Name Dose Route Start Last Admin Trade Name Freq PRN Reason Stop Dose Admin Acetaminophen 650 mg 01/26/20 09:04 Tylenol - PO Q6H PRN fever Acetaminophen/Butalbital/Caffeine 1 tablet 01/24/20 14:55 Fioricet - PO Q8H PRN HEADACHE Albuterol/Ipratropium 1 amp 01/26/20 20:40 01/26/20 21:35 Duoneb - NEB 1 amp Q4H PRN Administration SHORTNESS OF BREATH Atorvastatin Calcium 80 mg 01/24/20 22:00 01/26/20 22:50 Lipitor - PO 80 mg HS KONG Administration Bisacodyl 10 mg 01/24/20 14:51 Dulcolax Suppository - RC DAILY PRN CONSTIPATION Diazepam 10 mg 01/24/20 22:00 01/27/20 05:52 Valium - PO 10 mg TID KONG Administration Docusate Sodium 100 mg 01/24/20 22:00 01/27/20 05:53 Colace - PO 100 mg TID KONG Administration Escitalopram Oxalate 10 mg 01/24/20 22:00 01/26/20 22:50 Lexapro - PO 10 mg HS KONG Administration Gabapentin 600 mg 01/25/20 06:00 01/27/20 05:53 Neurontin - PO 600 mg BID@0600,1400 KONG Administration Gabapentin 300 mg/ Gabapentin 700 mg 01/24/20 22:00 01/26/20 22:50 400 mg PO 700 mg HS KONG Administration Guaifenesin 600 mg 01/25/20 16:50 01/26/20 22:51 Mucinex - PO 600 mg BID KONG Administration Hydromorphone HCl 2 mg 01/26/20 09:56 01/27/20 02:15 Dilaudid Vial - IVPUSH 2 mg Q4H PRN Administration PAIN LEVEL 7 - 10 Potassium Chloride/Dextrose/Sod Cl 1,000 mls @ 42 mls/hr 01/24/20 15:00 D5-1/2ns+20 Meq Kcl - IV ASDIR [facility] Metoprolol Succinate 25 mg 01/25/20 10:00 01/26/20 09:57 Toprol Xl - PO 25 mg DAILY KONG Administration Ondansetron HCl 4 mg 01/24/20 16:14 01/25/20 14:51 Zofran Injection IVPUSH 4 mg Q6H PRN Administration NAUSEA AND/OR VOMITING Oxycodone HCl 10 mg 01/26/20 08:58 01/27/20 05:53 Roxicodone - PO 10 mg Q4H PRN Administration breakthrough pain Oxycodone HCl 20 mg 01/26/20 22:00 01/26/20 22:50 Oxycontin - PO 20 mg BID KONG Administration Zolpidem Tartrate 5 mg 01/24/20 22:00 Ambien - PO HS PRN INSOMNIA ASSESSMENT/PLAN: The patient is a 44 year old male with CAD (s/p LAD stent 19), HLD, depression, anxiety, and chronic back pain (herniated discs, fusions and spurs; history of multiple spinal surgeries by various neurosurgeons) who presents s/p left T6 thoracotomy; rib resection; T6-7 discectomy, microdissection, partial T6 and T7 corpectomies; anterior T6-7 interbody fusion; anterior instrumentation Pivox large plate and 30 mm screws x2; 11 mm pyramesh cage; autologous rib graft; and chest tube. 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 I reviewed the resident's note and discussed the case with the resident. I agree with the resident's findings and plan as documented. SUBJECTIVE: OBJECTIVE: ASSESSMENT AND PLAN:
--- NOTE | 2020-01-27 09:46 | PN ---
Progress Note (short form) - Note Progress Note: THORACIC SURGERY POD #3 L T6 thoracotomy; rib resection; T6-7 discectomy, microdissection, partial T6 and T 7 corpectomies; fluoroscopy; anterior T6-7 interbody fusion; anterior instrumentation Pivox large plate and 30 mm screws x2; 11 mm pyramesh cage; autologous rib graft; chest tube Per RN note from last night, patient very anxious overnight, desaturated and placed on NRB. His SpO2 95%. Encouraged deep breathing. Weak inspiratory effort with incentive spirometer. Also placed back on hi-flow O2 and CxT placed back on wall suction. Patient seen and examined at bedside. Remains on hi-flow O2. Continues to have low SpO2 88% despite NRB & HI-FLOW O2. Had CTA yesterday and ruled out for PE. He has a productive cough. Tolerating PO diet. Denies n/v/f/c, CP, palpitations, SOB or hemoptysis. Last Vital Signs Temp Pulse Resp BP Pulse Ox 98.3 F 91 H 20 131/93 87 L 01/27/20 06:39 01/27/20 06:39 01/27/20 06:39 01/27/20 06:39 01/27/20 09:05 CBC, BMP 01/26/20 05:15 01/25/20 08:00 Output Trend 01/25/20 01/25/20 01/26/20 01/26/20 01/27/20 01/27/20 05:29 18:50 05:20 15:00 07:04 07:50 Left Chest Tube 410 285 115 50 Cervantes 137 742 5135 1800 PE GEN: A&Ox3, NAD PULM: on high flow O2, no accessory muscle use. unlabored respirations CHEST: CxT on suction (no air leak or tidaling). Dressing c/d/i. LE: all compartments soft. SCDs bilat. POD #3: L T6 thoracotomy; rib resection; T6-7 discectomy, microdissection, partial T6 and T 7 corpectomies; fluoroscopy; anterior T6-7 interbody fusion; anterior instrumentation Pivox large plate and 30 mm screws x2; 11 mm pyramesh cage; autologous rib graft; chest tube -f/u CXR in AM -Monitor SPO2, keep above 90% -CBC, BMP -Pain management -DVT prophylaxis. -Pulmonary toileting -Encourage incentive spirometer -OOB to chair for meals -dc cervantes once oob to chair Problem List - Problems (1) S/P chest tube placement Assessment/Plan: Anterior T6/7 corpectomy/fusion (Dr. Danny Rosado - Neurosurgeon) Code(s): Z93.8 - OTHER ARTIFICIAL OPENING STATUS (2) Anxiety Code(s): F41.9 - ANXIETY DISORDER, UNSPECIFIED
[2020-01-27] MEDS: oxyCODONE HCL 20 MG SUSTAINED ACTING TABLET PO SCH ×2 (10:17→21:04)
[2020-01-27] MEDS: metoPROLOL SUCCINATE 25 MG TAB.SR.24H (FP) PO SCH (10:18)
[2020-01-27] MEDS: guaiFENesin 600 MG TABLET.ER (FP) PO SCH ×2 (10:18→21:00)
--- NOTE | 2020-01-27 10:56 | PN ---
Progress Note (short form) - Note Progress Note: NEUROSURGERY POD #3 Incisional pain R leg significantly stronger since surgery C/o pain L chest No respiratory issue subjectively Tolerated PO diet yesterday PE: Tmax 99, VSS, mildly tachycardic; O2 sat 85-95%; On O2 bipap Chest tube- 20 cc in 24 hours Awake/alert HEENT- NC/AT; Neck- supple; Cor- RR; Lungs- CTA, decreased at B bases; Abd- benign; Ext- no sign of DVT CN- intact; Motor- B LE 5/5; UE 5/5; Sensation- grossly intact LT Dressing intact, small spot of bloody drainage mid-incision unchanged; CT to suction overnight Labs reviewed; WBC 12.7; Hgb 11.5 CXR- findings noted- decreased volume, no ptx CTA- no PE; atelectasis Adjust meds - on oxycontin bid; oxycodone vs dilaudid ivp prn depending on pain level and respiratory status Valium for muscle relaxation and anxiety Encouraged incentive spirometry Bowel regimen Chest tube management for CT surgery, but would prefer removal to possibly reduce pain and allow mobilization Medication regimen to optimize pain control Cont Vanco till 24 hours after chest tube removal D/w ICU attending and RN
--- NOTE | 2020-01-27 10:58 | PATH ---
Surgical Pathology Report Patient Name: COLTNE HARRIS Med. Rec. #: [id number] /Age/Gender: 1975 (Age: 44) / M Account: [id number] Location: [facility] MACHINE [employer]IP[employer]TER Taken: 01/24/2020 Received: 01/25/2020 Reported: 01/27/2020 Physicians: Gilbert Rosado M.D. Specimen(s) Received DISC T6-T7 Clinical History Intravertebral disc placement T6-T7, radiculopathy-thoracic region Final Diagnosis DISC, T6-T7, EXCISION: CARTILAGE WITH DEGENERATIVE CHANGES. Electronically Signed Laury Cottrell M.D. Gross Description Received in formalin labeled "disc T6-T7," is a 3.5 x 3.0 x 0.3 cm aggregate of de fragments of fibrocartilaginous tissue. A inbound call center representative portion is submitted in one cassette. DL/01/25/2020 saudi/01/25/2020
[2020-01-27] MEDS ORDERED: FAMOTIDINE 20 MG TABLET PO ONE (14:06)
[2020-01-27] MEDS ORDERED: ACETAMINOPHEN 1000 MG/100 ML VIAL (NON FORMULARY) IVPB SCH (15:00)
--- NOTE | 2020-01-27 15:28 | PN ---
Progress Note (short form) - Note Progress Note: Pt d/w ICU attending. Chest tube removed per attending's request (Dr Beltran). Pt tolerated well, pulse ox remained >97% on high flow O2 after removal of chest tube Stat chest xray ordered Update: CXR without pneumothorax Pt satting mid to high 90s on high-flow O2 Message sent to Dr Beltran regarding above
--- NOTE | 2020-01-27 16:40 | PN ---
Physical Exam: SUBJECTIVE: Patient seen and examined. He reports lateral rib pain and back pruritis. On HFOT and BiPAP intermittently. OBJECTIVE: Vital Signs Period Temp Pulse Resp BP Sys/Edouard Pulse Ox Last 24 Hr 98.3 F-98.4 F 91-116 14-27 114-133/55-93 77-94 GENERAL: The patient is awake, alert, and oriented. Drowsy. HEAD: Normal with no signs of trauma. EYES: PERRL, extraocular movements intact, conjunctiva clear. ENT: Ears normal, nares patent, moist mucous membranes. NECK: Trachea midline. LUNGS: Lack of deep inspiration, bronchial sounds, no accessory muscle use. Left chest tube in place draining. HEART: Regular rate and rhythm, no murmur. ABDOMEN: Soft, nontender, nondistended, normoactive bowel sounds. EXTREMITIES: Warm, well-perfused, no edema. NEUROLOGICAL: Cranial nerves II through XII grossly intact. Normal speech. PSYCH: Anxious, tearful. SKIN: Warm, dry, normal turgor. Active Medications Generic Name Dose Route Start Last Admin Trade Name Freq PRN Reason Stop Dose Admin Acetaminophen 1,000 mg 01/27/20 15:00 Ofirmev Injection - IVPB Q6H-IV KONG Albuterol/Ipratropium 1 amp 01/26/20 20:40 01/26/20 21:35 Duoneb - NEB 1 amp Q4H PRN Administration SHORTNESS OF BREATH Atorvastatin Calcium 80 mg 01/24/20 22:00 01/26/20 22:50 Lipitor - PO 80 mg HS KONG Administration Bisacodyl 10 mg 01/24/20 14:51 Dulcolax Suppository - RC DAILY PRN CONSTIPATION Diazepam 10 mg 01/24/20 22:00 01/27/20 14:40 Valium - PO 10 mg TID KONG Administration Docusate Sodium 100 mg 01/24/20 22:00 01/27/20 14:42 Colace - PO 100 mg TID KONG Administration Escitalopram Oxalate 10 mg 01/24/20 22:00 01/26/20 22:50 Lexapro - PO 10 mg HS KONG Administration Gabapentin 600 mg 01/25/20 06:00 01/27/20 14:42 Neurontin - PO 600 mg BID@0600,1400 KONG Administration Gabapentin 300 mg/ Gabapentin 700 mg 01/24/20 22:00 01/26/20 22:50 400 mg PO 700 mg HS KONG Administration Guaifenesin 600 mg 01/25/20 16:50 01/27/20 10:18 Mucinex - PO 600 mg BID KONG Administration Hydromorphone HCl 2 mg 01/26/20 09:56 01/27/20 15:32 Dilaudid Vial - IVPUSH 2 mg Q4H PRN Administration PAIN LEVEL 7 - 10 Potassium Chloride/Dextrose/Sod Cl 1,000 mls @ 42 mls/hr 01/24/20 15:00 D5-1/2ns+20 Meq Kcl - IV ASDIR KONG Metoprolol Succinate 25 mg 01/25/20 10:00 01/27/20 10:18 Toprol Xl - PO 25 mg DAILY KONG Administration Ondansetron HCl 4 mg 01/24/20 16:14 01/25/20 14:51 Zofran Injection IVPUSH 4 mg Q6H PRN Administration NAUSEA AND/OR VOMITING Oxycodone HCl 20 mg 01/26/20 22:00 01/27/20 10:17 Oxycontin - PO 20 mg BID KONG Administration Oxycodone HCl 10 mg 01/27/20 14:47 Roxicodone - PO Q3H PRN PAIN LEVEL 4 - 6 Polyethylene Glycol 17 gm 01/27/20 15:34 Miralax (For Daily Use) - PO BID KONG Senna 2 tab 01/27/20 22:00 Senna - PO HS KONG Vancomycin HCl 1,000 mg 01/27/20 22:00 Vancomycin (Pre-Docked) IVPB BID [facility] Protocol Zolpidem Tartrate 5 mg 01/24/20 22:00 Ambien - PO HS PRN INSOMNIA ASSESSMENT/PLAN: The patient is a 44 year old male with CAD (s/p LAD stent 19), HLD, depression, anxiety, and chronic back pain (herniated discs, fusions and spurs; history of multiple spinal surgeries by various neurosurgeons) who presents s/p left T6 thoracotomy; rib resection; T6-7 discectomy, microdissection, partial T6 and T7 corpectomies; anterior T6-7 interbody fusion; anterior instrumentation Pivox large plate and 30 mm screws x2; 11 mm pyramesh cage; autologous rib graft; and chest tube. #neuro -awake and alert #cardio -HLD -CAD s/p stent -statin -metoprolol succinate 25mg daily #pulm -CXR shows atelectasis -high risk of post-op PNA -CTA no evidence of PE -left chest tube removed this afternoon -on HFOT /BiPAP for support due to splinting -encourage incentive spirometry -vancomycin given post-op, continue till tomorrow evening since chest tube removed today- per Dr. Rosado's recs -duo-neb Q4H PRN -ID consulted #MSK -POD 3 -scheduled Ofirmev -oxycodone for breakthrough pain -Fioricet for SOLANO -gabapentin TID -PT/OOB #GI -bowel regimen -Zofran 4mg IV Q6H PRN #psych -Lexapro -Valium TID -Ambien held DVT Ppx SCDs FEN PO fluids monitor labs soft diet Dispo: ICU FULL CODE Visit type - Emergency Visit Emergency Visit: Yes ED Registration Date: 01/24/20 Care time: The patient presented to the Emergency Department on the above date and was hospitalized for further evaluation of their emergent condition. - New Patient This patient is new to me today: No - Critical Care Critical Care patient: Yes Total Critical Care Time (in minutes): 36 Critical Care Statement: The care of this patient involved high complexity decision making to prevent further life threatening deterioration of the pa kecia's condition and/or to evaluate & treat vital organ system(s) failure or risk of failure. ATTENDING PHYSICIAN STATEMENT I saw and evaluated the patient. I reviewed the resident's note and discussed the case with the resident. I agree with the resident's findings and plan as documented. SUBJECTIVE: OBJECTIVE: ASSESSMENT AND PLAN:
[2020-01-27] MEDS: ACETAMINOPHEN 1000 MG/100 ML VIAL (NON FORMULARY) IVPB SCH ×2 (18:37→21:06)
[2020-01-27] MEDS: POLYETHYLENE GLYCOL 3350 119 GM BTL PO SCH ×2 (18:39→21:03)
[2020-01-27] MEDS ORDERED: GABAPENTIN 300 MG CAPSULE ONE (20:56)
[2020-01-27] MEDS ORDERED: GABAPENTIN 400 MG CAPSULE ONE (20:56)
[2020-01-27] MEDS: GABAPENTIN PO SCH (21:03)
[2020-01-27] MEDS: ATORVASTATIN CA 80 MG TABLET (FP) PO SCH (21:03)
[2020-01-27] MEDS: ESCITALOPRAM OXALATE 10 MG TABLET PO SCH (21:05)
[2020-01-27] MEDS: SENNOSIDES 8.6MG TABLET (FP) PO SCH (21:06)
[2020-01-27] MEDS ORDERED: VANCOMYCIN 1 GM in D5W (PRE-DOCKED) 1,000 MG/250 ML IVPB SCH (22:00)
[2020-01-27] MEDS: oxyCODONE HCL 5 MG TABLET PO PRN (23:17)
[2020-01-28] MEDS: HYDROmorphone HCl 2 MG/ML VIAL IVPUSH PRN ×3 (01:18→17:05)
[2020-01-28] MEDS: ACETAMINOPHEN 1000 MG/100 ML VIAL (NON FORMULARY) IVPB SCH ×2 (02:57→09:07)
[2020-01-28] MEDS: diazePAM 5 MG TABLET PO SCH ×3 (05:19→21:35)
[2020-01-28] MEDS: GABAPENTIN 300 MG CAPSULE PO SCH ×2 (05:19→13:04)
[2020-01-28] MEDS: DOCUSATE SODIUM 100 MG CAPSULE (FP) PO SCH ×3 (05:19→21:34)
[2020-01-28] MEDS: oxyCODONE HCL 5 MG TABLET PO PRN ×2 (05:20→11:58)
[2020-01-28 06:30] LABS: HEMATOCRIT 30.5 % (35.4-49); HEMOGLOBIN 10.3 GM/dL (11.7-16.9); MCH 31.6 pg (25.7-33.7); MCHC 33.9 g/dl (32.0-35.9); MEAN CELL VOLUME 93.1 fl (80-96); MEAN PLT VOLUME 8.1 fl (7.5-11.1); PLATELET COUNT 246 K/MM3 (134-434); RBC 3.27 M/mm3 (4.00-5.60); RDW 13.5 % (11.9-15.9); WHITE BLOOD COUNT 9.8 K/mm3 (4.0-10.0)
[2020-01-28 06:44] LABS: BLOOD UREA NITROGEN 13.5 mg/dL (7-18); CALCIUM 8.4 mg/dL (8.5-10.1); CREATININE 0.8 mg/dL (0.55-1.3); MAGNESIUM 2.4 mg/dL (1.8-2.4); POTASSIUM 3.8 mmol/L (3.5-5.1)
[2020-01-28] MEDS: guaiFENesin 600 MG TABLET.ER (FP) PO SCH ×2 (08:59→21:34)
--- NOTE | 2020-01-28 09:00 | PN ---
Progress Note (short form) - Note Progress Note: NEUROSURGERY POD #4 C/o pain L chest incisional pain No respiratory issue subjectively Tolerated PO diet yesterday PE: Tmax 98.3, VSS, mildly tachycardic; O2 sat 85-95%; On O2 hiflow Chest tube out, no ptx Awake/alert; spirometry almost 1000 HEENT- NC/AT; Neck- supple; Cor- RR; Lungs- CTA, decreased at B bases; Abd- benign; Ext- no sign of DVT CN- intact; Motor- B LE 5/5; UE 5/5; Sensation- grossly intact LT Dressing intact, small spot of bloody drainage mid-incision unchanged; CT to suction overnight Labs reviewed; WBC 9.8; Hgb 10.3 CTA- no PE; atelectasis Adjust meds - on oxycontin bid; oxycodone vs dilaudid ivp prn depending on pain level and respiratory status Encouraged incentive spirometry Bowel regimen Vanco coverage d/w Dr Maria Will reassess during weekend Medication regimen to optimize pain control D/w ICU attending and team OOB with TLSO bragerard
[2020-01-28] MEDS: oxyCODONE HCL 20 MG SUSTAINED ACTING TABLET PO SCH ×2 (09:01→21:34)
[2020-01-28] MEDS: metoPROLOL SUCCINATE 25 MG TAB.SR.24H (FP) PO SCH (09:02)
[2020-01-28] MEDS: POLYETHYLENE GLYCOL 3350 119 GM BTL PO SCH ×2 (09:08→21:38)
--- NOTE | 2020-01-28 09:51 | PN ---
Progress Note (short form) - Note Progress Note: ID CONSULT DICTATED POD#4 L T6 THORACOTOMY, T6T7 DISCECTOMY MAJOR PCN ALLERGY CONTINUE PROPHYLACTIC VANCOMYCIN DISCUSSED WITH DR. WOODS
[2020-01-28] MEDS: ENOXAPARIN NA (PORCINE) 40 MG/0.4 ML DISP.SYRIN SQ SCH (10:20)
--- NOTE | 2020-01-28 11:30 | PN ---
Physical Exam: SUBJECTIVE: Patient seen and examined. S/p chest tube removal. OOB saturating well. Continued conversation about pain management. OBJECTIVE: Vital Signs Period Temp Pulse Resp BP Sys/Edouard Pulse Ox Last 24 Hr 96.8 F-99 F 70-90 10- 99-139/64-84 90-98 GENERAL: The patient is awake, alert, and oriented. HEAD: Normal with no signs of trauma. EYES: PERRL, extraocular movements intact, conjunctiva clear. ENT: Ears normal, nares patent, moist mucous membranes. NECK: Trachea midline. LUNGS: Clear to auscultation, no accessory muscle use. HEART: Regular rate and rhythm, no murmur. ABDOMEN: Soft, nontender, nondistended, normoactive bowel sounds. EXTREMITIES: Warm, well-perfused, no edema. NEUROLOGICAL: Cranial nerves II through XII grossly intact. Normal speech. PSYCH: Normal mood and affect. SKIN: Warm, dry, normal turgor. Laboratory Results - last 24 hr 01/28/20 01/28/20 05:50 05:50 WBC 9.8 RBC 3.27 L Hgb 10.3 L Hct 30.5 L MCV 93.1 MCH 31.6 MCHC 33.9 RDW 13.5 Plt Count 246 D MPV 8.1 Sodium 139 Potassium 3.8 Chloride 99 Carbon Dioxide 34 H Anion Gap 6 L BUN 13.5 Creatinine 0.8 Est GFR (CKD-EPI)AfAm 127.70 Est GFR (CKD-EPI)NonAf 110.18 Random Glucose 154 H Calcium 8.4 L Magnesium 2.4 Active Medications Generic Name Dose Route Start Last Admin Trade Name Freq PRN Reason Stop Dose Admin Albuterol/Ipratropium 1 amp 01/26/20 20:40 01/26/20 21:35 Duoneb - NEB 1 amp Q4H PRN Administration SHORTNESS OF BREATH Atorvastatin Calcium 80 mg 01/24/20 22:00 01/27/20 21:03 Lipitor - PO 80 mg HS [facility] Administration Bisacodyl 10 mg 01/24/20 14:51 Dulcolax Suppository - RC DAILY PRN CONSTIPATION Diazepam 10 mg 01/24/20 22:00 01/28/20 05:19 Valium - PO 10 mg TID [facility] Administration Docusate Sodium 100 mg 01/24/20 22:00 01/28/20 05:19 Colace - PO 100 mg TID [facility] Administration Enoxaparin Sodium 40 mg 01/28/20 10:45 Lovenox - SQ DAILY [facility] Escitalopram Oxalate 10 mg 01/24/20 22:00 01/27/20 21:05 Lexapro - PO 10 mg HS [facility] Administration Gabapentin 600 mg 01/25/20 06:00 01/28/20 05:19 Neurontin - PO 600 mg BID@0600,1400 [facility] Administration Gabapentin 300 mg/ Gabapentin 700 mg 01/24/20 22:00 01/27/20 21:03 400 mg PO 700 mg HS [facility] Administration Guaifenesin 600 mg 01/25/20 16:50 01/28/20 08:59 Mucinex - PO 600 mg BID [facility] Administration Hydromorphone HCl 2 mg 01/26/20 09:56 01/28/20 08:59 Dilaudid Vial - IVPUSH 2 mg Q4H PRN Administration PAIN LEVEL 7 - 10 Potassium Chloride/Dextrose/Sod Cl 1,000 mls @ 42 mls/hr 01/24/20 15:00 D5-1/2ns+20 Meq Kcl - IV ASDIR [facility] Vancomycin HCl 1,000 mg in 250 mls @ 166.667 mls/hr 01/28/20 10:00 Vancomycin (Pre-Docked) IVPB Q12H [facility] Protocol Metoprolol Succinate 25 mg 01/25/20 10:00 01/28/20 09:02 Toprol Xl - PO 25 mg DAILY [facility] Administration Ondansetron HCl 4 mg 01/24/20 16:14 01/25/20 14:51 Zofran Injection IVPUSH 4 mg Q6H PRN Administration NAUSEA AND/OR VOMITING Oxycodone HCl 20 mg 01/26/20 22:00 01/28/20 09:01 Oxycontin - PO 20 mg BID [facility] Administration Oxycodone HCl 10 mg 01/27/20 14:47 01/28/20 05:20 Roxicodone - PO 10 mg Q3H PRN Administration PAIN LEVEL 4 - 6 Polyethylene Glycol 17 gm 01/27/20 15:34 01/28/20 09:08 Miralax (For Daily Use) - PO 17 grams BID [facility] Administration Senna 2 tab 01/27/20 22:00 01/27/20 21:06 Senna - PO 2 tab HS [facility] Administration Zolpidem Tartrate 5 mg 01/24/20 22:00 Ambien - PO HS PRN INSOMNIA ASSESSMENT/PLAN: The patient is a 44 year old male with CAD (s/p LAD stent 19), HLD, depression, anxiety, and chronic back pain (herniated discs, fusions and spurs; history of multiple spinal surgeries by various neurosurgeons) who presents s/p left T6 thoracotomy; rib resection; T6-7 discectomy, microdissection, partial T6 and T7 corpectomies; anterior T6-7 interbody fusion; anterior instrumentation Pivox large plate and 30 mm screws x2; 11 mm pyramesh cage; autologous rib graft; and chest tube. #neuro -awake and alert #cardio -HLD -CAD s/p stent -statin -metoprolol succinate 25mg daily #pulm -CXR shows atelectasis -high risk of post-op PNA -CTA no evidence of PE -left chest tube removed this afternoon -on HFOT /BiPAP for support due to splinting -encourage incentive spirometry -vancomycin -duo-neb Q4H PRN -ID following #MSK -POD 4 -scheduled Ofirmev -oxycodone for breakthrough pain -Fioricet for SOLANO -gabapentin TID -PT/OOB #GI -bowel regimen -Zofran 4mg IV Q6H PRN #psych -Lexapro -Valium TID -Ambien held DVT Ppx SCDs FEN PO fluids monitor labs soft diet Dispo: ICU FULL CODE Visit type - Emergency Visit Emergency Visit: Yes ED Registration Date: 01/24/20 Care time: The patient presented to the Emergency Department on the above date and was hospitalized for further evaluation of their emergent condition. - New Patient This patient is new to me today: No - Critical Care Critical Care patient: Yes Total Critical Care Time (in minutes): 36 Critical Care Statement: The care of this patient involved high complexity dec ision making to prevent further life threatening deterioration of the patient's condition and/or to evaluate & treat vital organ system(s) failure or risk of failure. ATTENDING PHYSICIAN STATEMENT I saw and evaluated the patient. I reviewed the resident's note and discussed the case with the resident. I agree with the resident's findings and plan as documented. SUBJECTIVE: OBJECTIVE: ASSESSMENT AND PLAN:
--- NOTE | 2020-01-28 11:31 | PN ---
Progress Note (short form) - Note Progress Note: Thoracic Surgery Progress Note POD #4 s/p left thor, spinal surgery. Looks comfortable and pain control better, but still hypoxic due to atelectasis. No PE. Continue pain control, oob, dvt prophylaxis. Plan as per ICU and Dr. Rosado.
--- NOTE | 2020-01-28 12:05 | CONS ---
DATE OF CONSULTATION: DATE OF DICTATION: 01/28/2020 INFECTIOUS DISEASE CONSULTATION HISTORY OF PRESENT ILLNESS: The patient is a 44-year-old male who is evaluated for prophylactic antibiotic therapy. The patient was admitted to the hospital on January 24, 2020, and underwent an elective left T6 thoracotomy, T6-T7 diskectomy with microdissection. He had a chest tube in place postoperatively. The case was discussed with Dr. Gilbert Rosado from Neurosurgery. Because of the prolonged presence of the chest tube a decision was made to keep him on prophylactic antibiotic therapy. 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 At the present time he is awake and alert. He was noted to have a low-grade fever; however, is presently afebrile. He has no complaints at the present time. PAST MEDICAL HISTORY: Positive for chronic back pain, coronary artery disease, hyperlipidemia, depression. PAST SURGICAL HISTORY: Status post anterior cervical decompressive surgery, C4, C6, and T6-T7 hemilaminectomy. ALLERGIES: To IODINE, NSAIDs, PENICILLIN, KETOROLAC. MEDICATIONS: Include vancomycin, albuterol, Lovenox, Lipitor, Toprol, valium, Lexapro, Neurontin, oxycodone. SOCIAL HISTORY: He resides in the community with his family. Former smoker. LABORATORY DATA: White count 9.8, hematocrit 30.5, platelet count 246. Creatinine 0.8. PHYSICAL EXAMINATION: General: He is awake and alert, in no acute distress, seated in bed. Vital Signs: Temperature 98.3, blood pressure 100/67, pulse 89, regular, respirations 12 per minute. HEENT: Sclerae are anicteric. Cardiac: Heart sounds S1-S2. Chest: There is a surgical dressing present over the left thoracotomy surgical site. Abdomen: Soft and nontender. Extremities: Negative edema, negative Homans sign. IMPRESSION: 1. Postoperative day number 4 left T6 thoracotomy and T6-T7 diskectomy. 2. History of MAJOR PENICILLIN ALLERGY. RECOMMENDATIONS: Continue prophylactic vancomycin. Case discussed with Dr. Gilbert Rosado. Prophylactic antibiotic therapy to be discontinued at the discretion of Dr. Rosado. GUZMAN DAVID M.D. [id number]
[2020-01-28] MEDS: VANCOMYCIN 1 GRAM (PRE-DOCKED) 1,000 MG/250 ML BAG IVPB SCH ×2 (12:17→21:36)
--- NOTE | 2020-01-28 16:20 | PN ---
Teaching Attending Note Name of Resident: Quita Guillen ATTENDING PHYSICIAN STATEMENT I saw and evaluated the patient. I reviewed the resident's note and discussed the case with the resident. I agree with the resident's findings and plan as documented. SUBJECTIVE: Patient seen and examined in the ICU. Remains on HFOT (50L / 90% FiO2). Reports breathing feels a little better today. Pain issues. CXR: No PTX / Atelectasis OBJECTIVE: Intake & Output 01/25/20 01/26/20 01/27/20 01/28/20 23:59 23:59 23:59 23:59 Intake Total 3320 730 120 240 Output Total 3495 2115 2520 550 Balance -814 -1955 -5980 -310 Weight 202 lb Last Vital Signs Temp Pulse Resp BP Pulse Ox 98.3 F 95 H 11 122/78 95 01/28/20 12:00 01/28/20 15:27 01/28/20 12:00 01/28/20 12:00 01/28/20 15:27 Active Medications Albuterol/Ipratropium (Duoneb -) 1 amp NEB Q4H PRN PRN Reason: SHORTNESS OF BREATH Last Admin: 01/26/20 21:35 Dose: 1 amp Documented by: Atorvastatin Calcium (Lipitor -) 80 mg PO [facility] Last Admin: 01/27/20 21:03 Dose: 80 mg Documented by: Bisacodyl (Dulcolax Suppository -) 10 mg RC DAILY PRN PRN Reason: CONSTIPATION Diazepam (Valium -) 10 mg PO TID [facility] Last Admin: 01/28/20 13:37 Dose: 10 mg Documented by: Docusate Sodium (Colace -) 100 mg PO TID [facility] Last Admin: 01/28/20 13:04 Dose: 100 mg Documented by: Enoxaparin Sodium (Lovenox -) 40 mg SQ DAILY [facility] Last Admin: 01/28/20 10:20 Dose: 40 mg Documented by: Escitalopram Oxalate (Lexapro -) 10 mg PO [facility] Last Admin: 01/27/20 21:05 Dose: 10 mg Documented by: Gabapentin (Neurontin -) 600 mg PO BID@0600,1400 [facility] Last Admin: 01/28/20 13:04 Dose: 600 mg Documented by: Gabapentin 300 mg/ Gabapentin (400 mg) 700 mg PO [facility] Last Admin: 01/27/20 21:03 Dose: 700 mg Documented by: Guaifenesin (Mucinex -) 600 mg PO BID [facility] Last Admin: 01/28/20 08:59 Dose: 600 mg Documented by: Hydromorphone HCl (Dilaudid Vial -) 2 mg IVPUSH Q4H PRN PRN Reason: PAIN LEVEL 7 - 10 Last Admin: 01/28/20 08:59 Dose: 2 mg Documented by: Potassium Chloride/Dextrose/Sod Cl (D5-1/2ns+20 Meq Kcl -) 1,000 mls @ 42 mls/hr IV ASDIR [facility] Vancomycin HCl (Vancomycin (Pre-Docked)) 1,000 mg in 250 mls @ 166.667 mls/hr IVPB Q12H [facility]; Protocol Last Admin: 01/28/20 12:17 Dose: 166.667 mls/hr Documented by: Metoprolol Succinate (Toprol Xl -) 25 mg PO DAILY [facility] Last Admin: 01/28/20 09:02 Dose: 25 mg Documented by: Ondansetron HCl (Zofran Injection) 4 mg IVPUSH Q6H PRN PRN Reason: NAUSEA AND/OR VOMITING Last Admin: 01/25/20 14:51 Dose: 4 mg Documented by: Oxycodone HCl (Oxycontin -) 20 mg PO BID [facility] Last Admin: 01/28/20 09:01 Dose: 20 mg Documented by: Oxycodone HCl (Roxicodone -) 10 mg PO Q3H PRN PRN Reason: PAIN LEVEL 4 - 6 Last Admin: 01/28/20 11:58 Dose: 10 mg Documented by: Polyethylene Glycol (Miralax (For Daily Use) -) 17 gm PO BID [facility] Last Admin: 01/28/20 09:08 Dose: 17 grams Documented by: Senna (Senna -) 2 tab PO [facility] Last Admin: 01/27/20 21:06 Dose: 2 tab Documented by: Zolpidem Tartrate (Ambien -) 5 mg PO HS PRN PRN Reason: INSOMNIA Gen: NAD at rest Heart: RRR Lung: decreased breath sounds at the bases Abd: soft, nontender Ext: no edema Laboratory Results - last 24 hr 01/28/20 01/28/20 05:50 05:50 WBC 9.8 RBC 3.27 L Hgb 10.3 L Hct 30.5 L MCV 93.1 MCH 31.6 MCHC 33.9 RDW 13.5 Plt Count 246 D MPV 8.1 Sodium 139 Potassium 3.8 Chloride 99 Carbon Dioxide 34 H Anion Gap 6 L BUN 13.5 Creatinine 0.8 Est GFR (CKD-EPI)AfAm 127.70 Est GFR (CKD-EPI)NonAf 110.18 Random Glucose 154 H Calcium 8.4 L Magnesium 2.4 ASSESSMENT AND PLAN: Acute Hypoxic Respiratory Failure Atelectasis T6-7 herniated nucleus pulposus s/p L T6 thoracotomy/rib resection/T6-7 discectomy, microdissection/partial T6 and T 7 corpectomies/anterior T6-7 interbody fusion/anterior instrumentation Pivox large plate and 30 mm screws x2; 11 mm pyramesh cage/autologous rib graft/chest tube placement POD 1 CAD Hyperlipidemia Anxiety Anemia - Aggressive Pulmonary toilet and Incentive Spriometry - pain control - titrate HFOT to keep SpO2 >90% - PO as tolerated - DVT prophylaxis - continue ICU monitoring x [address] Barton
[2020-01-28] MEDS ORDERED: GABAPENTIN 300 MG CAPSULE ONE (21:32)
[2020-01-28] MEDS ORDERED: GABAPENTIN 400 MG CAPSULE ONE (21:32)
[2020-01-28] MEDS: GABAPENTIN PO SCH (21:35)
[2020-01-28] MEDS: SENNOSIDES 8.6MG TABLET (FP) PO SCH (21:35)
[2020-01-28] MEDS: ATORVASTATIN CA 80 MG TABLET (FP) PO SCH (21:35)
[2020-01-28] MEDS: ESCITALOPRAM OXALATE 10 MG TABLET PO SCH (21:35)
[2020-01-29] MEDS: HYDROmorphone HCl 2 MG/ML VIAL IVPUSH PRN ×4 (00:46→15:22)
[2020-01-29] MEDS: DOCUSATE SODIUM 100 MG CAPSULE (FP) PO SCH ×3 (05:00→21:19)
[2020-01-29] MEDS: GABAPENTIN 300 MG CAPSULE PO SCH ×2 (05:00→13:23)
[2020-01-29] MEDS: diazePAM 5 MG TABLET PO SCH ×3 (05:03→21:19)
[2020-01-29 05:54] LABS: BASO % 0.2 % (0-2.0); EOS % 2.3 % (0-4.5); HEMATOCRIT 29.9 % (35.4-49); HEMOGLOBIN 10.3 GM/dL (11.7-16.9); LYMPH % 25.5 % (8-40); MCH 31.8 pg (25.7-33.7); MCHC 34.3 g/dl (32.0-35.9); MEAN CELL VOLUME 92.6 fl (80-96); MEAN PLT VOLUME 7.5 fl (7.5-11.1); MONO % 8.8 % (3.8-10.2); NEUT % 63.2 % (42.8-82.8); PLATELET COUNT 245 K/MM3 (134-434); RBC 3.23 M/mm3 (4.00-5.60); RDW 13.7 % (11.9-15.9)
[2020-01-29 06:20] LABS: BLOOD UREA NITROGEN 11.4 mg/dL (7-18); CALCIUM 8.3 mg/dL (8.5-10.1); CREATININE 0.8 mg/dL (0.55-1.3); POTASSIUM 3.4 mmol/L (3.5-5.1)
--- NOTE | 2020-01-29 08:55 | PN ---
Progress Note (short form) - Note Progress Note: Pulm/CCM Progress Note Pt seen and examined in the ICU. Remains on HiFlo 90%, 40L.O2 sat 95%. Productive cough. Incisional pain with cough and movement. Lt thoracotomy drsg dry and intact. OOB to chair w/o assist. Active Medications Albuterol/Ipratropium (Duoneb -) 1 amp NEB Q4H PRN PRN Reason: SHORTNESS OF BREATH Last Admin: 01/26/20 21:35 Dose: 1 amp Documented by: Atorvastatin Calcium (Lipitor -) 80 mg PO [facility] Last Admin: 01/28/20 21:35 Dose: 80 mg Documented by: Bisacodyl (Dulcolax Suppository -) 10 mg RC DAILY PRN PRN Reason: CONSTIPATION Diazepam (Valium -) 10 mg PO TID [facility] Last Admin: 01/29/20 13:23 Dose: 10 mg Documented by: Docusate Sodium (Colace -) 100 mg PO TID [facility] Last Admin: 01/29/20 13:23 Dose: 100 mg Documented by: Enoxaparin Sodium (Lovenox -) 40 mg SQ DAILY [facility] Last Admin: 01/29/20 09:33 Dose: 40 mg Documented by: Escitalopram Oxalate (Lexapro -) 10 mg PO [facility] Last Admin: 01/28/20 21:35 Dose: 10 mg Documented by: Gabapentin (Neurontin -) 600 mg PO BID@0600,1400 [facility] Last Admin: 01/29/20 13:23 Dose: 600 mg Documented by: Gabapentin 300 mg/ Gabapentin (400 mg) 700 mg PO [facility] Last Admin: 01/28/20 21:35 Dose: 700 mg Documented by: Guaifenesin (Mucinex -) 600 mg PO BID [facility] Last Admin: 01/29/20 09:32 Dose: 600 mg Documented by: Hydromorphone HCl (Dilaudid Vial -) 2 mg IVPUSH Q4H PRN PRN Reason: PAIN LEVEL 7 - 10 Last Admin: 01/29/20 09:33 Dose: 2 mg Documented by: Potassium Chloride/Dextrose/Sod Cl (D5-1/2ns+20 Meq Kcl -) 1,000 mls @ 42 mls/hr IV ASDIR [facility] Vancomycin HCl (Vancomycin (Pre-Docked)) 1,000 mg in 250 mls @ 166.667 mls/hr IVPB Q12H [facility]; Protocol Last Admin: 01/29/20 09:33 Dose: 166.667 mls/hr Documented by: Metoprolol Succinate (Toprol Xl -) 25 mg PO DAILY [facility] Last Admin: 01/29/20 09:32 Dose: 25 mg Documented by: Ondansetron HCl (Zofran Injection) 4 mg IVPUSH Q6H PRN PRN Reason: NAUSEA AND/OR VOMITING Last Admin: 01/25/20 14:51 Dose: 4 mg Documented by: Oxycodone HCl (Oxycontin -) 20 mg PO BID [facility] Last Admin: 01/29/20 09:31 Dose: 20 mg Documented by: Oxycodone HCl (Roxicodone -) 10 mg PO Q3H PRN PRN Reason: PAIN LEVEL 4 - 6 Last Admin: 01/28/20 11:58 Dose: 10 mg Documented by: Polyethylene Glycol (Miralax (For Daily Use) -) 17 gm PO BID [facility] Last Admin: 01/29/20 09:34 Dose: 17 grams Documented by: Senna (Senna -) 2 tab PO HS [facility] Last Admin: 01/28/20 21:35 Dose: 2 tab Documented by: Zolpidem Tartrate (Ambien -) 5 mg PO HS PRN PRN Reason: INSOMNIA Vital Signs Period Temp Pulse Resp BP Sys/Edouard Pulse Ox Last 24 Hr 97.5 F-98.4 F 68-95 9-16 101-139/66-98 79-100 Intake & Output 01/26/20 01/27/20 01/28/20 01/29/20 23:59 23:59 23:59 23:59 Intake Total 730 120 790 990 Output Total 9455 5780 550 1275 Balance -1385 -2400 240 -285 Weight 91.626 kg Gen: in NAD Lungs: Diminished bases; productive cough CV: S1S2, RRR Abd: Soft, NT, ND Ext: Trace edema CBC,CMP WBC 7.0 K/mm3 (4.0-10.0) 01/29/20 05:10 RBC 3.23 M/mm3 (4.00-5.60) L 01/29/20 05:10 Hgb 10.3 GM/dL (11.7-16.9) L 01/29/20 05:10 Hct 29.9 % (35.4-49) L 01/29/20 05:10 MCV 92.6 fl (80-96) 01/29/20 05:10 MCH 31.8 pg (25.7-33.7) 01/29/20 05:10 MCHC 34.3 g/dl (32.0-35.9) 01/29/20 05:10 RDW 13.7 % (11.9-15.9) 01/29/20 05:10 Plt Count 245 K/MM3 (134-434) 01/29/20 05:10 MPV 7.5 fl (7.5-11.1) 01/29/20 05:10 Absolute Neuts (auto) 4.4 K/mm3 (1.5-8.0) 01/29/20 05:10 Neutrophils % 63.2 % (42.8-82.8) 01/29/20 05:10 Lymphocytes % 25.5 % (8-40) D 01/29/20 05:10 Monocytes % 8.8 % (3.8-10.2) 01/29/20 05:10 Eosinophils % 2.3 % (0-4.5) D 01/29/20 05:10 Basophils % 0.2 % (0-2.0) 01/29/20 05:10 Nucleated RBC % 0 % (0-0) 01/29/20 05:10 Sodium 139 mmol/L (136-145) 01/29/20 05:10 Potassium 3.4 mmol/L (3.5-5.1) L 01/29/20 05:10 Chloride 98 mmol/L (98-107) 01/29/20 05:10 Carbon Dioxide 36 mmol/L (21-32) H 01/29/20 05:10 Anion Gap 4 MMOL/L (8-16) L 01/29/20 05:10 BUN 11.4 mg/dL (7-18) 01/29/20 05:10 Creatinine 0.8 mg/dL (0.55-1.3) 01/29/20 05:10 Est GFR (CKD-EPI)AfAm 127.70 01/29/20 05:10 Est GFR (CKD-EPI)NonAf 110.18 01/29/20 05:10 Random Glucose 108 mg/dL (74-106) H 01/29/20 05:10 Calcium 8.3 mg/dL (8.5-10.1) L 01/29/20 05:10 Phosphorus 3.3 mg/dL (2.5-4.9) 01/25/20 08:00 Magnesium 2.4 mg/dL (1.8-2.4) 01/28/20 05:50 Total Bilirubin 0.9 mg/dL (0.2-1) 01/25/20 08:00 AST 47 U/L (15-37) H 01/25/20 08:00 ALT 28 U/L (13-61) 01/25/20 08:00 Alkaline Phosphatase 48 U/L (45-117) 01/25/20 08:00 Total Protein 5.9 g/dl (6.4-8.2) L 01/25/20 08:00 Albumin 3.3 g/dl (3.4-5.0) L 01/25/20 08:00 ASSESSMENT AND PLAN: Acute Hypoxic Respiratory Failure Atelectasis T6-7 herniated nucleus pulposus s/p L T6 thoracotomy/rib resection/T6-7 discectomy, microdissection/partial T6 and T 7 corpectomies/anterior T6-7 interbody fusion/anterior instrumentation Pivox large plate and 30 mm screws x2; 11 mm pyramesh cage/autologous rib graft/chest tube placement POD 1 CAD Hyperlipidemia Anxiety Anemia - titrate HFOT to keep SpO2 >90% -Aggressive Pulmonary toilet and Incentive Spirometry -OOB - pain management - PO as tolerated - DVT prophylaxis - continue ICU monitoring Marika Aldridge, RAVIN CCT 35mins
[2020-01-29] MEDS: oxyCODONE HCL 20 MG SUSTAINED ACTING TABLET PO SCH ×2 (09:31→21:20)
[2020-01-29] MEDS: metoPROLOL SUCCINATE 25 MG TAB.SR.24H (FP) PO SCH (09:32)
[2020-01-29] MEDS: guaiFENesin 600 MG TABLET.ER (FP) PO SCH ×2 (09:32→21:19)
[2020-01-29] MEDS: VANCOMYCIN 1 GRAM (PRE-DOCKED) 1,000 MG/250 ML BAG IVPB SCH ×2 (09:33→21:30)
[2020-01-29] MEDS: ENOXAPARIN NA (PORCINE) 40 MG/0.4 ML DISP.SYRIN SQ SCH (09:33)
[2020-01-29] MEDS: POLYETHYLENE GLYCOL 3350 119 GM BTL PO SCH ×2 (09:34→21:22)
--- NOTE | 2020-01-29 09:54 | PN ---
Progress Note (short form) - Note Progress Note: NEUROSURGERY POD #5 C/o pain L chest incisional pain No respiratory issue reported Tolerated PO diet PE: Tmax 98.4, VSS, mildly tachycardic; O2 sat 85-100%; On O2 hiflow Awake/alert; spirometry improving HEENT- NC/AT; Neck- supple; Cor- RR; Lungs- CTA, decreased at B bases; Abd- benign; Ext- no sign of DVT CN- intact; Motor- B LE 5/5; UE 5/5; Sensation- grossly intact LT Dressing intact, small spot of bloody drainage mid-incision unchanged; CT to suction overnight Labs reviewed; WBC 7; Hgb 10.6 On oxycontin bid; oxycodone vs dilaudid ivp prn Encouraged incentive spirometry Bowel regimen Vanco coverage d/w Dr Maria yesterday Will reassess during weekend re: cont for now Medication regimen to optimize pain control D/w ICU attending and team OOB with NICOLA hong, PT
[2020-01-29] MEDS: oxyCODONE HCL 5 MG TABLET PO PRN ×2 (20:17→23:20)
[2020-01-29] MEDS: ACETAMINOPHEN 325 MG TABLET (FP) PO PRN (20:17)
[2020-01-29] MEDS ORDERED: GABAPENTIN 300 MG CAPSULE ONE (21:13)
[2020-01-29] MEDS ORDERED: GABAPENTIN 400 MG CAPSULE ONE (21:13)
[2020-01-29] MEDS: GABAPENTIN PO SCH (21:19)
[2020-01-29] MEDS: ESCITALOPRAM OXALATE 10 MG TABLET PO SCH (21:19)
[2020-01-29] MEDS: ATORVASTATIN CA 80 MG TABLET (FP) PO SCH (21:19)
[2020-01-29] MEDS: SENNOSIDES 8.6MG TABLET (FP) PO SCH (21:20)
[2020-01-30] MEDS: oxyCODONE HCL 5 MG TABLET PO PRN ×2 (03:16→13:01)
[2020-01-30] MEDS: HYDROmorphone HCl 2 MG/ML VIAL IVPUSH PRN ×5 (05:07→23:15)
[2020-01-30 06:19] LABS: HEMOGLOBIN 9.9 GM/dL (11.7-16.9); MCH 31.3 pg (25.7-33.7); MEAN CELL VOLUME 91.9 fl (80-96); MEAN PLT VOLUME 7.4 fl (7.5-11.1); PLATELET COUNT 246 K/MM3 (134-434); RBC 3.15 M/mm3 (4.00-5.60); RDW 13.5 % (11.9-15.9)
[2020-01-30 06:46] LABS: BLOOD UREA NITROGEN 11.8 mg/dL (7-18); CREATININE 0.9 mg/dL (0.55-1.3); PHOSPHOROUS 4.2 mg/dL (2.5-4.9); POTASSIUM 3.3 mmol/L (3.5-5.1)
[2020-01-30] MEDS: diazePAM 5 MG TABLET PO SCH ×3 (07:30→21:35)
[2020-01-30] MEDS: GABAPENTIN 300 MG CAPSULE PO SCH ×2 (07:30→13:50)
[2020-01-30] MEDS: DOCUSATE SODIUM 100 MG CAPSULE (FP) PO SCH ×3 (07:30→21:31)
--- NOTE | 2020-01-30 08:03 | PN ---
Progress Note (short form) - Note Progress Note: NEUROSURGERY POD #6 C/o pain L chest incisional pain No respiratory issue reported Tolerated PO diet R LE strength remains improved PE: Tmax 99, VSS, mildly tachycardic; O2 sat mostly 90's Awake/alert; spirometry improving HEENT- NC/AT; Neck- supple; Cor- RR; Lungs- CTA, decreased at B bases; Abd- benign; Ext- no sign of DVT CN- intact; Motor- B LE 5/5; UE 5/5; Sensation- grossly intact LT Dressing intact, no drainage Labs reviewed; WBC 7; Hgb 9.9 CXR- B atelectasis s/p L thoracotomy for fusion Continued oxygenation issue, though improving Encouraged incentive spirometry Bowel regimen Vanco coverage: cont for now Medication regimen to optimize pain control OOB and mobilize with TLSO brace, PT Spoke to on pt's phone on facetime
[2020-01-30] MEDS ORDERED: POTASSIUM CHLORIDE TABS 20 MEQ TABLET.ER (FP) PO ONE (08:30)
--- NOTE | 2020-01-30 08:31 | PN ---
Progress Note (short form) - Note Progress Note: Pulm/CCM Pt seen and examined in the ICU. Remains on HFNC, currently at 70%, 35L.O2 sat 92-96%. Productive cough. Complaining of Incisional pain with cough and movement. Active Medications Acetaminophen (Tylenol -) 650 mg PO Q4H PRN PRN Reason: PAIN LEVEL 1 - 3 Last Admin: 01/29/20 20:17 Dose: 650 mg Documented by: Albuterol/Ipratropium (Duoneb -) 1 amp NEB Q4H PRN PRN Reason: SHORTNESS OF BREATH Last Admin: 01/26/20 21:35 Dose: 1 amp Documented by: Atorvastatin Calcium (Lipitor -) 80 mg PO [facility] Last Admin: 01/29/20 21:19 Dose: 80 mg Documented by: Bisacodyl (Dulcolax Suppository -) 10 mg RC DAILY PRN PRN Reason: CONSTIPATION Diazepam (Valium -) 10 mg PO TID [facility] Last Admin: 01/30/20 07:30 Dose: 10 mg Documented by: Docusate Sodium (Colace -) 100 mg PO TID [facility] Last Admin: 01/30/20 07:30 Dose: 100 mg Documented by: Enoxaparin Sodium (Lovenox -) 40 mg SQ DAILY [facility] Last Admin: 01/30/20 09:16 Dose: 40 mg Documented by: Escitalopram Oxalate (Lexapro -) 10 mg PO [facility] Last Admin: 01/29/20 21:19 Dose: 10 mg Documented by: Gabapentin (Neurontin -) 600 mg PO BID@0600,1400 [facility] Last Admin: 01/30/20 07:30 Dose: 600 mg Documented by: Gabapentin 300 mg/ Gabapentin (400 mg) 700 mg PO [facility] Last Admin: 01/29/20 21:19 Dose: 700 mg Documented by: Guaifenesin (Mucinex -) 600 mg PO BID [facility] Last Admin: 01/30/20 09:15 Dose: 600 mg Documented by: Hydromorphone HCl (Dilaudid Vial -) 2 mg IVPUSH Q4H PRN PRN Reason: PAIN LEVEL 7 - 10 Last Admin: 01/30/20 09:39 Dose: 2 mg Documented by: Potassium Chloride/Dextrose/Sod Cl (D5-1/2ns+20 Meq Kcl -) 1,000 mls @ 42 mls/hr IV ASDIR [facility] Vancomycin HCl (Vancomycin (Pre-Docked)) 1,000 mg in 250 mls @ 166.667 mls/hr IVPB Q12H [facility]; Protocol Last Admin: 01/30/20 09:21 Dose: 166.667 mls/hr Documented by: Metoprolol Succinate (Toprol Xl -) 25 mg PO DAILY [facility] Last Admin: 01/30/20 09:13 Dose: 25 mg Documented by: Ondansetron HCl (Zofran Injection) 4 mg IVPUSH Q6H PRN PRN Reason: NAUSEA AND/OR VOMITING Last Admin: 01/25/20 14:51 Dose: 4 mg Documented by: Oxycodone HCl (Oxycontin -) 20 mg PO BID [facility] Last Admin: 01/30/20 09:14 Dose: 20 mg Documented by: Oxycodone HCl (Roxicodone -) 10 mg PO Q3H PRN PRN Reason: PAIN LEVEL 4 - 6 Last Admin: 01/30/20 03:16 Dose: 10 mg Documented by: Polyethylene Glycol (Miralax (For Daily Use) -) 17 gm PO BID [facility] Last Admin: 01/30/20 09:21 Dose: 17 grams Documented by: Senna (Senna -) 2 tab PO HS [facility] Last Admin: 01/29/20 21:20 Dose: 2 tab Documented by: Zolpidem Tartrate (Ambien -) 5 mg PO HS PRN PRN Reason: INSOMNIA Vital Signs Period Temp Pulse Resp BP Sys/Edouard Pulse Ox Last 24 Hr 98.2 F-99 F 69-108 10-23 105-154/64-93 90-100 Intake & Output 01/27/20 01/28/20 01/29/20 01/30/20 23:59 23:59 23:59 23:59 Intake Total 120 790 990 240 Output Total 2520 550 1850 700 Balance -2400 240 -860 -460 Gen: in NAD Lungs: Diminished bases; productive cough CV: S1S2, RRR Abd: Soft, NT, ND Ext: Trace edema CBC, BMP 01/30/20 05:10 01/30/20 05:10 ASSESSMENT AND PLAN: Acute Hypoxic Respiratory Failure Atelectasis T6-7 herniated nucleus pulposus s/p L T6 thoracotomy/rib resection/T6-7 discectomy, microdissection/partial T6 and T 7 corpectomies/anterior T6-7 interbody fusion/anterior instrumentation Pivox large plate and 30 mm screws x2; 11 mm pyramesh cage/autologous rib graft/chest tube placement POD 6 CAD Hyperlipidemia Anxiety Anemia - Titrate HFNC to keep SpO2 >90% - Duonebs - Aggressive Pulmonary toilet and Incentive Spirometry q1 hour while awake - OOB, encourage ambulation - I/O, trend and replete electrolytes, keep Mg>2, K>4 - pain management - Bowel regiment - continue Vanco BID - PO as tolerated - DVT prophylaxis - continue ICU monitoring Patt Dawkins, ACNP 1015
[2020-01-30] MEDS: metoPROLOL SUCCINATE 25 MG TAB.SR.24H (FP) PO SCH (09:13)
[2020-01-30] MEDS: oxyCODONE HCL 20 MG SUSTAINED ACTING TABLET PO SCH ×2 (09:14→21:33)
[2020-01-30] MEDS: guaiFENesin 600 MG TABLET.ER (FP) PO SCH ×2 (09:15→21:32)
[2020-01-30] MEDS: ENOXAPARIN NA (PORCINE) 40 MG/0.4 ML DISP.SYRIN SQ SCH (09:16)
[2020-01-30] MEDS: VANCOMYCIN 1 GRAM (PRE-DOCKED) 1,000 MG/250 ML BAG IVPB SCH ×2 (09:21→21:36)
[2020-01-30] MEDS: POLYETHYLENE GLYCOL 3350 119 GM BTL PO SCH ×2 (09:21→21:32)
[2020-01-30] MEDS ORDERED: GABAPENTIN 300 MG CAPSULE ONE (21:25)
[2020-01-30] MEDS ORDERED: GABAPENTIN 400 MG CAPSULE ONE (21:25)
[2020-01-30] MEDS: ESCITALOPRAM OXALATE 10 MG TABLET PO SCH (21:32)
[2020-01-30] MEDS: ATORVASTATIN CA 80 MG TABLET (FP) PO SCH (21:32)
[2020-01-30] MEDS: GABAPENTIN PO SCH (21:33)
[2020-01-30] MEDS: SENNOSIDES 8.6MG TABLET (FP) PO SCH (21:35)
[2020-01-31] MEDS: HYDROmorphone HCl 2 MG/ML VIAL IVPUSH PRN ×4 (03:38→21:33)
[2020-01-31 06:44] LABS: BASO % 0.7 % (0-2.0); EOS % 1.2 % (0-4.5); HEMOGLOBIN 10.6 GM/dL (11.7-16.9); LYMPH % 18.4 % (8-40); MCH 31.6 pg (25.7-33.7); MCHC 34.3 g/dl (32.0-35.9); MEAN CELL VOLUME 92.3 fl (80-96); MEAN PLT VOLUME 7.2 fl (7.5-11.1); MONO % 7.9 % (3.8-10.2); NEUT % 71.8 % (42.8-82.8); PLATELET COUNT 286 K/MM3 (134-434); RBC 3.36 M/mm3 (4.00-5.60); RDW 13.2 % (11.9-15.9); WHITE BLOOD COUNT 8.5 K/mm3 (4.0-10.0)
[2020-01-31] MEDS: DOCUSATE SODIUM 100 MG CAPSULE (FP) PO SCH ×4 (06:54→21:35)
[2020-01-31] MEDS: GABAPENTIN 300 MG CAPSULE PO SCH ×2 (06:56→15:00)
[2020-01-31] MEDS: diazePAM 5 MG TABLET PO SCH ×3 (06:56→21:34)
[2020-01-31 07:11] LABS: ALBUMIN 2.7 g/dl (3.4-5.0); BILIRUBIN,TOTAL 0.7 mg/dL (0.2-1); BLOOD UREA NITROGEN 11.2 mg/dL (7-18); CALCIUM 8.5 mg/dL (8.5-10.1); CREATININE 0.8 mg/dL (0.55-1.3); MAGNESIUM 2.3 mg/dL (1.8-2.4); PHOSPHOROUS 3.9 mg/dL (2.5-4.9); POTASSIUM 3.7 mmol/L (3.5-5.1); TOT PROT 5.7 g/dl (6.4-8.2)
[2020-01-31] MEDS ORDERED: D5-1/2NS+20 MEQ KCL - 20 MEQ/1,000 ML INFUS.BAG IV SCH (08:30)
--- NOTE | 2020-01-31 08:59 | PN ---
Physical Exam: SUBJECTIVE: Patient seen and examined. Upon my evaluation, pt stated that he felt better. He rated his pain 6-7/10 and stated that his breathing has improved, although he finds it difficult to take a deep breath, due to his incisional pain. Denies nausea, vomiting, diarrhea, constipation. OBJECTIVE: Vital Signs Period Temp Pulse Resp BP Sys/Edouard Pulse Ox Last 24 Hr 98.4 F-98.9 F 76-95 10-21 107-154/74-100 84-99 GENERAL: AAOx3, not in acute distress. HEENT: NCAT, EOMI. LUNGS: clear to auscultation b/l, HEART: regular rate and rhythm, no murmurs. ABDOMEN: Bowel sounds present in all 4 quadrants, not tender to palpation, non- distended. EXTREMITIES: No edema NEURO: 5/5 strength in all 4 extremities, moving extremities spontaneously SKIN: warm, dry Laboratory Last Values WBC 8.5 K/mm3 (4.0-10.0) 01/31/20 06:20 RBC 3.36 M/mm3 (4.00-5.60) L 01/31/20 06:20 Hgb 10.6 GM/dL (11.7-16.9) L 01/31/20 06:20 Hct 31.0 % (35.4-49) L 01/31/20 06:20 MCV 92.3 fl (80-96) 01/31/20 06:20 MCH 31.6 pg (25.7-33.7) 01/31/20 06:20 MCHC 34.3 g/dl (32.0-35.9) 01/31/20 06:20 RDW 13.2 % (11.9-15.9) 01/31/20 06:20 Plt Count 286 K/MM3 (134-434) 01/31/20 06:20 MPV 7.2 fl (7.5-11.1) L 01/31/20 06:20 Absolute Neuts (auto) 6.1 K/mm3 (1.5-8.0) 01/31/20 06:20 Neutrophils % 71.8 % (42.8-82.8) 01/31/20 06:20 Lymphocytes % 18.4 % (8-40) D 01/31/20 06:20 Monocytes % 7.9 % (3.8-10.2) 01/31/20 06:20 Eosinophils % 1.2 % (0-4.5) 01/31/20 06:20 Basophils % 0.7 % (0-2.0) D 01/31/20 06:20 Nucleated RBC % 0 % (0-0) 01/31/20 06:20 Sodium 139 mmol/L (136-145) 01/31/20 06:20 Potassium 3.7 mmol/L (3.5-5.1) 01/31/20 06:20 Chloride 100 mmol/L (98-107) 01/31/20 06:20 Carbon Dioxide 36 mmol/L (21-32) H 01/31/20 06:20 Anion Gap 4 MMOL/L (8-16) L 01/31/20 06:20 BUN 11.2 mg/dL (7-18) 01/31/20 06:20 Creatinine 0.8 mg/dL (0.55-1.3) 01/31/20 06:20 Est GFR (CKD-EPI)AfAm 127.70 01/31/20 06:20 Est GFR (CKD-EPI)NonAf 110.18 01/31/20 06:20 Random Glucose 129 mg/dL (74-106) H 01/31/20 06:20 Calcium 8.5 mg/dL (8.5-10.1) 01/31/20 06:20 Phosphorus 3.9 mg/dL (2.5-4.9) 01/31/20 06:20 Magnesium 2.3 mg/dL (1.8-2.4) 01/31/20 06:20 Total Bilirubin 0.7 mg/dL (0.2-1) 01/31/20 06:20 AST 18 U/L (15-37) 01/31/20 06:20 ALT 24 U/L (13-61) 01/31/20 06:20 Alkaline Phosphatase 63 U/L (45-117) 01/31/20 06:20 Total Protein 5.7 g/dl (6.4-8.2) L 01/31/20 06:20 Albumin 2.7 g/dl (3.4-5.0) L 01/31/20 06:20 Active Medications Acetaminophen (Tylenol -) 650 mg PO Q4H PRN PRN Reason: PAIN LEVEL 1 - 3 Last Admin: 01/29/20 20:17 Dose: 650 mg Documented by: Albuterol/Ipratropium (Duoneb -) 1 amp NEB Q4H PRN PRN Reason: SHORTNESS OF BREATH Last Admin: 01/26/20 21:35 Dose: 1 amp Documented by: Atorvastatin Calcium (Lipitor -) 80 mg PO [facility] Last Admin: 01/30/20 21:32 Dose: 80 mg Documented by: Bisacodyl (Dulcolax Suppository -) 10 mg RC DAILY PRN PRN Reason: CONSTIPATION Diazepam (Valium -) 10 mg PO TID [facility] Last Admin: 01/31/20 06:56 Dose: 10 mg Documented by: Docusate Sodium (Colace -) 100 mg PO TID [facility] Last Admin: 01/31/20 06:54 Dose: 100 mg Documented by: Enoxaparin Sodium (Lovenox -) 40 mg SQ DAILY [facility] Last Admin: 01/31/20 09:56 Dose: 40 mg Documented by: Escitalopram Oxalate (Lexapro -) 10 mg PO [facility] Last Admin: 01/30/20 21:32 Dose: 10 mg Documented by: Gabapentin (Neurontin -) 600 mg PO BID@0600,1400 [facility] Last Admin: 01/31/20 06:56 Dose: 600 mg Documented by: Gabapentin 300 mg/ Gabapentin (400 mg) 700 mg PO [facility] Last Admin: 01/30/20 21:33 Dose: 700 mg Documented by: Guaifenesin (Mucinex -) 600 mg PO BID [facility] Last Admin: 01/31/20 09:58 Dose: 600 mg Documented by: Hydromorphone HCl (Dilaudid Vial -) 2 mg IVPUSH Q4H PRN PRN Reason: PAIN LEVEL 7 - 10 Last Admin: 01/31/20 08:21 Dose: 2 mg Documented by: Potassium Chloride/Dextrose/Sod Cl (D5-1/2ns+20 Meq Kcl -) 20 meq in 1,000 mls @ 42 mls/hr IV ASDIR [facility] Last Admin: 01/31/20 10:00 Dose: Not Given Documented by: Vancomycin HCl (Vancomycin (Pre-Docked)) 1,000 mg in 250 mls @ 166.667 mls/hr IVPB Q12H [facility]; Protocol Last Admin: 01/31/20 09:57 Dose: 166.667 mls/hr Documented by: Metoprolol Succinate (Toprol Xl -) 25 mg PO DAILY [facility] Last Admin: 01/31/20 09:57 Dose: 25 mg Documented by: Ondansetron HCl (Zofran Injection) 4 mg IVPUSH Q6H PRN PRN Reason: NAUSEA AND/OR VOMITING Last Admin: 01/25/20 14:51 Dose: 4 mg Documented by: Oxycodone HCl (Oxycontin -) 20 mg PO BID [facility] Last Admin: 01/31/20 09:56 Dose: 20 mg Documented by: Polyethylene Glycol (Miralax (For Daily Use) -) 17 gm PO BID [facility] Last Admin: 01/30/20 21:32 Dose: 17 grams Documented by: Senna (Senna -) 2 tab PO HS [facility] Last Admin: 01/30/20 21:35 Dose: 2 tab Documented by: Zolpidem Tartrate (Ambien -) 5 mg PO HS PRN PRN Reason: INSOMNIA ASSESSMENT/PLAN: 44 year old male with PMH CAD (s/p LAD stent 2019), HLD, depression, anxiety, and chronic back pain (herniated discs, fusions and spurs; history of multiple spinal surgeries) who presents s/p left T6 thoracotomy; rib resection; T6-7 discectomy, microdissection, partial T6 and T7 corpectomies; anterior T6-7 interbody fusion; anterior instrumentation Pivox large plate and 30 mm screws x2; 11 mm pyramesh cage; autologous rib graft; and chest tube. Chest tube r emoved. Today is POD #7 and pt had no respiratory complaints. Overnight, was on HFNC and 6L NC in the morning with good saturation (SpO2 in low 90%). Compliant with incentive spirometry. Pt reported incisional pain, which is controlled on dilaudid, oxycontin and oxycodone. Rated 6-7/10 on pain scale. Pt can ambulate with assistance and is doing well with PT. Spoke to Dr. Rosado in the morning, who is in agreement for transfer to telemetry for further management. Problem list: #neuro -awake and alert #cardio -HLD -CAD s/p stent -continue metoprolol succinate 25mg, atorvastatin, enoxaparin #pulm -CXR shows progressive L pulmonary and pleural changes and R blase fluid and atelectasis. -high risk of post-op PNA -on HFOT /BiPAP for support due to splinting -Encouraged incentive spirometry -Continue vancomycin -Continue duo-neb Q4H PRN -ID consulted. #MSK -POD # 7 -For pain: oxycodone, oxycontin, dilaudid -gabapentin TID -PT/OOB #GI -On bowel regimen -Zofran 4mg IV Q6H PRN #psych -Lexapro -Valium TID -Ambien held DVT Ppx -DVT- SCDs FEN -PO fluids -monitor electrolytes and replete as needed -soft diet Dispo: Transfer to telemetry for pulse-ox monitoring. Visit type - Emergency Visit Emergency Visit: Yes ED Registration Date: 01/24/20 Care time: The patient presented to the Emergency Department on the above date and was hospitalized for further evaluation of their emergent condition. - New Patient This patient is new to me today: No - Critical Care Critical Care patient: Yes Total Critical Care Time (in minutes): 36 Critical Care Statement: The care of this patient involved high complexity decision making to prevent further life threatening deterioration of the patient's condition and/or to evaluate & treat vital organ system(s) failure or risk of failure. ATTENDING PHYSICIAN STATEMENT I saw and evaluated the patient. I reviewed the resident's note and discussed the case with the resident. I agree with the resident's findings and plan as documented. SUBJECTIVE: OBJECTIVE: ASSESSMENT AND PLAN:
[2020-01-31] MEDS: oxyCODONE HCL 20 MG SUSTAINED ACTING TABLET PO SCH ×2 (09:56→21:36)
[2020-01-31] MEDS: ENOXAPARIN NA (PORCINE) 40 MG/0.4 ML DISP.SYRIN SQ SCH (09:56)
[2020-01-31] MEDS: metoPROLOL SUCCINATE 25 MG TAB.SR.24H (FP) PO SCH (09:57)
[2020-01-31] MEDS: VANCOMYCIN 1 GRAM (PRE-DOCKED) 1,000 MG/250 ML BAG IVPB SCH ×2 (09:57→22:53)
[2020-01-31] MEDS: guaiFENesin 600 MG TABLET.ER (FP) PO SCH ×2 (09:58→21:36)
--- NOTE | 2020-01-31 11:20 | PN ---
Progress Note (short form) - Note Progress Note: NEUROSURGERY POD #7 C/o L chest incisional pain No respiratory issue reported Tolerated PO diet R LE strength remains improved PE: Tmax 98.7, VSS, O2 sat mostly low 90's Awake/alert; spirometry improving HEENT- NC/AT; Neck- supple; Cor- RR; Lungs- CTA, decreased at B bases; Abd- benign; Ext- no sign of DVT CN- intact; Motor- B LE 5/5; UE 5/5; Sensation- grossly intact LT Dressing intact, incision c/d, no drainage, changed; reportedly with significant drainage yesterday Labs reviewed; WBC 8.5; Hgb 10.4 CXR- B atelectasis s/p L thoracotomy for fusion Continued oxygenation issue, though improving Encouraged incentive spirometry Bowel regimen Vanco coverage: cont for now given reported significant drainage yesterday Medication regimen to optimize pain control OOB and mobilize with TLSO brace, PT Floor OK Cont to monitor oxygenation status D/w ICU team
--- NOTE | 2020-01-31 11:49 | PN ---
Progress Note (short form) - Note Progress Note: Transfer note: 44 year old male with PMH CAD (s/p LAD stent 2019), HLD, depression, anxiety, and chronic back pain (herniated discs, fusions and spurs; history of multiple spinal surgeries) who presents s/p left T6 thoracotomy; rib resection; T6-7 discectomy, microdissection, partial T6 and T7 corpectomies; anterior T6-7 interbody fusion; anterior instrumentation Pivox large plate and 30 mm screws x2; 11 mm pyramesh cage; autologous rib graft; and chest tube. Chest tube removed. Today is POD #7 and pt had no respiratory complaints today. Was placed on HFNC overnight and on 6L NC in the morning with good saturation (SpO2 in low 90%). Compliant with incentive spirometry. Labs reviewed. CXR done today showed progressive L pulmonary and pleural changes and R blase fluid and atelectasis. Concerned for post-op PNA and placed on vancomycin for coverage. Pt reported incisional pain, which is controlled on dilaudid, oxycontin and oxycodone. Pt can ambulate with assistance. Pt is hemodynamically stable. This pt is medically optimized and can be transferred to telemetry for further management. Last Vital Signs Temp Pulse Resp BP Pulse Ox 98.5 F 81 11 130/84 93 L 01/31/20 06:00 01/31/20 08:18 01/31/20 06:00 01/31/20 06:00 01/31/20 08:18 Problem list: #neuro -awake and alert #cardio -HLD -CAD s/p stent -continue metoprolol succinate 25mg, atorvastatin, enoxaparin #pulm -CXR shows atelectasis -high risk of post-op PNA -on HFOT /BiPAP for support due to splinting -encourage incentive spirometry -vancomycin -duo-neb Q4H PRN -ID following #MSK -POD # 7 -For pain: oxycodone, oxycontin, dilaudid -gabapentin TID -PT/OOB #GI -On bowel regimen -Zofran 4mg IV Q6H PRN #psych -Lexapro -Valium TID -Ambien held DVT Ppx SCDs FEN -PO fluids -monitor electrolytes and replete as needed -soft diet Dispo: Transfer to telemetry for pulse-ox monitoring.
[2020-01-31] MEDS: ACETAMINOPHEN 325 MG TABLET (FP) PO PRN (11:54)
--- NOTE | 2020-01-31 12:07 | PN ---
Teaching Attending Note Name of Resident: Bernice Dooley ATTENDING PHYSICIAN STATEMENT I saw and evaluated the patient. I reviewed the resident's note and discussed the case with the resident. I agree with the resident's findings and plan as documented. SUBJECTIVE: Patient seen and examined in the ICU. Currently on NC O2. Reports breathing continues to slowly improve. Pain is slowly improving. CXR: Some increase in left base atelectasis. OBJECTIVE: Intake & Output 01/25/20 01/26/20 01/27/20 01/28/20 23:59 23:59 23:59 23:59 Intake Total 3320 730 120 240 Output Total 3495 2115 2520 550 Balance -175 -1385 -2400 -310 Weight 202 lb Last Vital Signs Temp Pulse Resp BP Pulse Ox 98.3 F 95 H 11 122/78 95 01/28/20 12:00 01/28/20 15:27 01/28/20 12:00 01/28/20 12:00 01/28/20 15:27 Active Medications Albuterol/Ipratropium (Duoneb -) 1 amp NEB Q4H PRN PRN Reason: SHORTNESS OF BREATH Last Admin: 01/26/20 21:35 Dose: 1 amp Documented by: Atorvastatin Calcium (Lipitor -) 80 mg PO [facility] Last Admin: 01/27/20 21:03 Dose: 80 mg Documented by: Bisacodyl (Dulcolax Suppository -) 10 mg RC DAILY PRN PRN Reason: CONSTIPATION Diazepam (Valium -) 10 mg PO TID [facility] Last Admin: 01/28/20 13:37 Dose: 10 mg Documented by: Docusate Sodium (Colace -) 100 mg PO TID [facility] Last Admin: 01/28/20 13:04 Dose: 100 mg Documented by: Enoxaparin Sodium (Lovenox -) 40 mg SQ DAILY [facility] Last Admin: 01/28/20 10:20 Dose: 40 mg Documented by: Escitalopram Oxalate (Lexapro -) 10 mg PO [facility] Last Admin: 01/27/20 21:05 Dose: 10 mg Documented by: Gabapentin (Neurontin -) 600 mg PO BID@0600,1400 [facility] Last Admin: 01/28/20 13:04 Dose: 600 mg Documented by: Gabapentin 300 mg/ Gabapentin (400 mg) 700 mg PO [facility] Last Admin: 01/27/20 21:03 Dose: 700 mg Documented by: Guaifenesin (Mucinex -) 600 mg PO BID [facility] Last Admin: 01/28/20 08:59 Dose: 600 mg Documented by: Hydromorphone HCl (Dilaudid Vial -) 2 mg IVPUSH Q4H PRN PRN Reason: PAIN LEVEL 7 - 10 Last Admin: 01/28/20 08:59 Dose: 2 mg Documented by: Potassium Chloride/Dextrose/Sod Cl (D5-1/2ns+20 Meq Kcl -) 1,000 mls @ 42 mls/hr IV [facility] Vancomycin HCl (Vancomycin (Pre-Docked)) 1,000 mg in 250 mls @ 166.667 mls/hr IVPB Q12H [facility]; Protocol Last Admin: 01/28/20 12:17 Dose: 166.667 mls/hr Documented by: Metoprolol Succinate (Toprol Xl -) 25 mg PO DAILY [facility] Last Admin: 01/28/20 09:02 Dose: 25 mg Documented by: Ondansetron HCl (Zofran Injection) 4 mg IVPUSH Q6H PRN PRN Reason: NAUSEA AND/OR VOMITING Last Admin: 01/25/20 14:51 Dose: 4 mg Documented by: Oxycodone HCl (Oxycontin -) 20 mg PO BID [facility] Last Admin: 01/28/20 09:01 Dose: 20 mg Documented by: Oxycodone HCl (Roxicodone -) 10 mg PO Q3H PRN PRN Reason: PAIN LEVEL 4 - 6 Last Admin: 01/28/20 11:58 Dose: 10 mg Documented by: Polyethylene Glycol (Miralax (For Daily Use) -) 17 gm PO BID [facility] Last Admin: 01/28/20 09:08 Dose: 17 grams Documented by: Senna (Senna -) 2 tab PO HS [facility] Last Admin: 01/27/20 21:06 Dose: 2 tab Documented by: Zolpidem Tartrate (Ambien -) 5 mg PO HS PRN PRN Reason: INSOMNIA Gen: NAD at rest Heart: RRR Lung: scattered rhonchi, decreased breath sounds at the bases Abd: soft, nontender Ext: no edema Laboratory Results - last 24 hr 01/31/20 01/31/20 06:20 06:20 WBC 8.5 RBC 3.36 L Hgb 10.6 L Hct 31.0 L MCV 92.3 MCH 31.6 MCHC 34.3 RDW 13.2 Plt Count 286 MPV 7.2 L Absolute Neuts (auto) 6.1 Neutrophils % 71.8 Lymphocytes % 18.4 D Monocytes % 7.9 Eosinophils % 1.2 Basophils % 0.7 D Nucleated RBC % 0 Sodium 139 Potassium 3.7 Chloride 100 Carbon Dioxide 36 H Anion Gap 4 L BUN 11.2 Creatinine 0.8 Est GFR (CKD-EPI)AfAm 127.70 Est GFR (CKD-EPI)NonAf 110.18 Random Glucose 129 H Calcium 8.5 Phosphorus 3.9 Magnesium 2.3 Total Bilirubin 0.7 AST 18 ALT 24 Alkaline Phosphatase 63 Total Protein 5.7 L Albumin 2.7 L ASSESSMENT AND PLAN: Acute Hypoxic Respiratory Failure Atelectasis T6-7 herniated nucleus pulposus s/p L T6 thoracotomy/rib resection/T6-7 discectomy, microdissection/partial T6 and T 7 corpectomies/anterior T6-7 interbody fusion/anterior instrumentation Pivox large plate and 30 mm screws x2; 11 mm pyramesh cage/autologous rib graft/chest tube placement POD 1 CAD Hyperlipidemia Anxiety Anemia - Aggressive Pulmonary toilet and Incentive Spriometry - pain control - NC O2 as needed - PO as tolerated - DVT prophylaxis - Floor Dr Barton
[2020-01-31] MEDS: POLYETHYLENE GLYCOL 3350 119 GM BTL PO SCH ×2 (15:16→21:36)
--- NOTE | 2020-01-31 17:56 | HOSP ---
Subjective - Review of Symptoms Events since last encounter: ACCEPTANCE NOTE: Patient seen and assessed at bedside in ICU. Seen Stable, NAD, A&Ox3. Pt stable for transfer from ICU to med-surg. Physical Examination Vital Signs: Vital Signs Temperature 98.4 F 01/31/20 14:00 Pulse Rate 74 01/31/20 16:00 Respiratory Rate 15 01/31/20 16:00 Blood Pressure 145/83 01/31/20 16:00 O2 Sat by Pulse Oximetry (%) 94 L 01/31/20 15:39 Findings/Remarks: GENERAL: A&Ox3, NAD HEAD: NCAT EYES: PERRL, EOMI ENT: Moist mucous membranes. NECK: No JVD LUNGS: Diminished breath sounds at the bases, Diffuse rhonchi, No wheezes, no crackles HEART: RRR S1 S2 ABDOMEN: Obese, Soft, nontender, not distended, + bowel sounds, no guarding, no rebound MUSCULOSKELETAL: No CVA tenderness. EXTREMITIES: No peripheral edema. NEUROLOGICAL: Cranial nerves II-XII intact. PSYCHIATRIC: Cooperative. SKIN: Warm, dry Labs: CBC, BMP 01/31/20 06:20 01/31/20 06:20 Visit type - Emergency Visit Emergency Visit: Yes ED Registration Date: 01/24/20 Care time: The patient presented to the Emergency Department on the above date and was hospitalized for further evaluation of their emergent condition. - New Patient This patient is new to me today: Yes Date on this admission: 01/31/20 - Critical Care Critical Care patient: No
[2020-01-31] MEDS ORDERED: GABAPENTIN 300 MG CAPSULE ONE (21:29)
[2020-01-31] MEDS ORDERED: GABAPENTIN 400 MG CAPSULE ONE (21:29)
[2020-01-31] MEDS: SENNOSIDES 8.6MG TABLET (FP) PO SCH (21:35)
[2020-01-31] MEDS: GABAPENTIN PO SCH (21:35)
[2020-01-31] MEDS: ESCITALOPRAM OXALATE 10 MG TABLET PO SCH (21:36)
[2020-01-31] MEDS: ATORVASTATIN CA 80 MG TABLET (FP) PO SCH (21:36)
[2020-02-01] MEDS: HYDROmorphone HCl 2 MG/ML VIAL IVPUSH PRN ×6 (01:37→23:15)
[2020-02-01] MEDS ORDERED: ZOLPIDEM TARTRATE 5 MG TABLET PO PRN (02:14)
[2020-02-01] MEDS ORDERED: ACETAMINOPHEN 325 MG TABLET (FP) PO PRN (02:14)
[2020-02-01] MEDS ORDERED: BISACODYL 10 MG SUPP.RECT RC PRN (02:14)
[2020-02-01] MEDS ORDERED: ONDANSETRON 4 MG/2 ML VIAL IVPUSH PRN (02:14)
[2020-02-01] MEDS: D5-1/2NS+20 MEQ KCL - 20 MEQ/1,000 ML INFUS.BAG IV SCH (03:01)
[2020-02-01] MEDS: GABAPENTIN 300 MG CAPSULE PO SCH ×2 (06:12→14:53)
[2020-02-01] MEDS: diazePAM 5 MG TABLET PO SCH ×3 (06:12→21:42)
[2020-02-01] MEDS: DOCUSATE SODIUM 100 MG CAPSULE (FP) PO SCH ×3 (06:12→21:39)
[2020-02-01 07:30] LABS: BASO % 0.3 % (0-2.0); EOS % 1.8 % (0-4.5); HEMATOCRIT 30.5 % (35.4-49); HEMOGLOBIN 10.3 GM/dL (11.7-16.9); LYMPH % 21.4 % (8-40); MCH 31.1 pg (25.7-33.7); MCHC 33.9 g/dl (32.0-35.9); MEAN CELL VOLUME 91.8 fl (80-96); MEAN PLT VOLUME 7.4 fl (7.5-11.1); NEUT % 68.5 % (42.8-82.8); PLATELET COUNT 307 K/MM3 (134-434); RBC 3.32 M/mm3 (4.00-5.60); RDW 13.4 % (11.9-15.9); WHITE BLOOD COUNT 7.7 K/mm3 (4.0-10.0)
[2020-02-01 07:41] LABS: ALBUMIN 2.7 g/dl (3.4-5.0); BILIRUBIN,TOTAL 0.8 mg/dL (0.2-1); BLOOD UREA NITROGEN 10.3 mg/dL (7-18); CALCIUM 8.6 mg/dL (8.5-10.1); CREATININE 0.8 mg/dL (0.55-1.3); MAGNESIUM 2.4 mg/dL (1.8-2.4); POTASSIUM 4.1 mmol/L (3.5-5.1); TOT PROT 5.9 g/dl (6.4-8.2)
--- NOTE | 2020-02-01 08:52 | PN ---
Progress Note, Physician History of Present Illness: 44 year old male with PMH CAD (s/p LAD stent 2019), HLD, depression, anxiety, and chronic back pain (herniated discs, fusions and spurs; history of multiple spinal surgeries) who presents s/p left T6 thoracotomy; rib resection; T6-7 discectomy, microdissection, partial T6 and T7 corpectomies; anterior T6-7 interbody fusion; anterior instrumentation Pivox large plate and 30 mm screws x2; 11 mm pyramesh cage; autologous rib graft; and chest tube. Chest tube removed and transferred to [facility] yesterday Today is POD #8. Pain controlled with oral pain meds - Current Medication List Current Medications: Active Medications Acetaminophen (Tylenol -) 650 mg PO Q4H PRN PRN Reason: PAIN LEVEL 1 - 3 Atorvastatin Calcium (Lipitor -) 80 mg PO HS [facility] Bisacodyl (Dulcolax Suppository -) 10 mg RC DAILY PRN PRN Reason: CONSTIPATION Diazepam (Valium -) 10 mg PO TID [facility] Last Admin: 02/01/20 06:12 Dose: 10 mg Documented by: Docusate Sodium (Colace -) 100 mg PO TID [facility] Last Admin: 02/01/20 06:12 Dose: 100 mg Documented by: Enoxaparin Sodium (Lovenox -) 40 mg SQ DAILY [facility] Escitalopram Oxalate (Lexapro -) 10 mg PO HS [facility] Gabapentin (Neurontin -) 600 mg PO BID@0600,1400 [facility] Last Admin: 02/01/20 06:12 Dose: 600 mg Documented by: Gabapentin 300 mg/ Gabapentin (400 mg) 700 mg PO [facility] Guaifenesin (Mucinex -) 600 mg PO BID [facility] Hydromorphone HCl (Dilaudid Vial -) 2 mg IVPUSH Q4H PRN PRN Reason: PAIN LEVEL 7 - 10 Last Admin: 02/01/20 06:13 Dose: 2 mg Documented by: Potassium Chloride/Dextrose/Sod Cl (D5-1/2ns+20 Meq Kcl -) 20 meq in 1,000 mls @ 42 mls/hr IV ASDIR [facility] Last Admin: 02/01/20 03:01 Dose: Not Given Documented by: Vancomycin HCl (Vancomycin (Pre-Docked)) 1,000 mg in 250 mls @ 166.667 mls/hr IVPB Q12H [facility]; Protocol Metoprolol Succinate (Toprol Xl -) 25 mg PO DAILY [facility] Ondansetron HCl (Zofran Injection) 4 mg IVPUSH Q6H PRN PRN Reason: NAUSEA AND/OR VOMITING Oxycodone HCl (Oxycontin -) 20 mg PO BID [facility] Polyethylene Glycol (Miralax (For Daily Use) -) 17 gm PO BID [facility] Senna (Senna -) 2 tab PO HS [facility] Zolpidem Tartrate (Ambien -) 5 mg PO HS PRN PRN Reason: INSOMNIA - Objective Vital Signs: Vital Signs Temperature 98.4 F 02/01/20 05:50 Pulse Rate 81 02/01/20 05:50 Respiratory Rate 20 02/01/20 05:50 Blood Pressure 148/89 02/01/20 05:50 O2 Sat by Pulse Oximetry (%) 95 02/01/20 08:15 Constitutional: Yes: Well Nourished, No Distress, Calm Eyes: Yes: WNL, Conjunctiva Clear HENT: Yes: WNL, Atraumatic, Normocephalic Neck: Yes: WNL Cardiovascular: Yes: WNL, Regular Rate and Rhythm Respiratory: Yes: WNL, Regular, CTA Bilaterally Gastrointestinal: Yes: WNL, Normal Bowel Sounds, Soft ...Rectal Exam: Yes: Deferred Genitourinary: Yes: WNL Breast(s): Yes: WNL Musculoskeletal: Yes: Back Pain, Other (tenderness to thoracic incision and old CT site) Extremities: Yes: WNL Edema: No Peripheral Pulses WNL: Yes Peripheral Pulses: Left Radial: 2+, Right Radial: 2+, Left Doralis Pedis: 2+, Right Dorsalis Pedis: 2+, Left Femoral: 2+, Right Femoral: 2+ Integumentary: Yes: WNL Wound/Incision: Yes: Well Approximated, Dressing Dry and Intact Neurological: Yes: WNL, Alert, Oriented ...Motor Strength: WNL Psychiatric: Yes: WNL Labs: CBC, BMP 02/01/20 05:53 02/01/20 05:53 Problem List - Problems (1) Prophylactic measure Assessment/Plan: FEN Fluids: adequate PO intake Electrolytes: monitor & replete as needed Nutrition: soft diet DVT moderate risk sq lovenox Dispo Maintain as inpatient full code discharge planning to home with VNS Code(s): Z29.9 - ENCOUNTER FOR PROPHYLACTIC MEASURES, UNSPECIFIED (2) COVID-19 ruled out Assessment/Plan: negative PCR Code(s): Z03.818 - ENCNTR FOR OBS FOR SUSP EXPSR TO OTH BIOLG AGENTS RULED OUT (3) HLD (hyperlipidemia) Assessment/Plan: c/w atorvastatin Code(s): E78.5 - HYPERLIPIDEMIA, UNSPECIFIED (4) Depression Assessment/Plan: c/w lexapro supportive care Code(s): F32.9 - MAJOR DEPRESSIVE DISORDER, SINGLE EPISODE, UNSPECIFIED (5) Chronic back pain Assessment/Plan: improved home pain med regimen discussed with Dr Rosado (one month of oxycontin plus oxycodone breakthrough, and off oxycontin one month out to be on short-acting only home care needs (walker) Code(s): M54.9 - DORSALGIA, UNSPECIFIED; G89.29 - OTHER CHRONIC PAIN (6) Anxiety Assessment/Plan: supportive care Code(s): F41.9 - ANXIETY DISORDER, UNSPECIFIED (7) Presence of stent in coronary artery in patient with coronary artery disease Assessment/Plan: s/p stent continue metoprolol succinate 25mg, atorvastatin, enoxaparin Code(s): I25.10 - ATHSCL HEART DISEASE OF [place] CORONARY ARTERY W/O ANG PCTRS; Z95.5 - PRESENCE OF CORONARY ANGIOPLASTY IMPLANT AND GRAFT Visit type - Emergency Visit Emergency Visit: Yes ED Registration Date: 01/24/20 Care time: The patient presented to the Emergency Department on the above date and was hospitalized for further evaluation of their emergent condition. - New Patient This patient is new to me today: Yes Date on this admission: 02/01/20 - Critical Care Critical Care patient: No - Discharge Referral Referred to [facility]
[2020-02-01] MEDS ORDERED: oxyCODONE HCL 20 MG SUSTAINED ACTING TABLET PO SCH (10:00)
[2020-02-01] MEDS: guaiFENesin 600 MG TABLET.ER (FP) PO SCH ×2 (10:20→21:40)
[2020-02-01] MEDS: metoPROLOL SUCCINATE 25 MG TAB.SR.24H (FP) PO SCH (10:20)
[2020-02-01] MEDS: POLYETHYLENE GLYCOL 3350 119 GM BTL PO SCH ×2 (10:20→21:46)
[2020-02-01] MEDS: VANCOMYCIN 1 GRAM (PRE-DOCKED) 1,000 MG/250 ML BAG IVPB SCH ×2 (10:20→21:49)
[2020-02-01] MEDS: ENOXAPARIN NA (PORCINE) 40 MG/0.4 ML DISP.SYRIN SQ SCH (10:20)
[2020-02-01] MEDS: oxyCODONE HCL 10 MG SUSTAINED ACTING TABLET PO SCH ×2 (10:21→21:40)
--- NOTE | 2020-02-01 11:49 | PN ---
Progress Note (short form) - Note Progress Note: NEUROSURGERY POD #8 On 4S telemetry C/o L chest incisional pain but better No respiratory issue reported Tolerated PO diet R LE strength remains improved PE: Tmax 98.7, VSS, O2 sat mostly 92-97% Awake/alert; spirometry improving HEENT- NC/AT; Neck- supple; Cor- RR; Lungs- CTA, decreased at B bases; Abd- benign; Ext- no sign of DVT CN- intact; Motor- B LE 5/5; UE 5/5; Sensation- grossly intact LT Dressing intact, incision c/d, no drainage, changed; reportedly with significant drainage yesterday Labs reviewed; WBC 8.5; Hgb 10.4 CXR- B atelectasis s/p L thoracotomy for T6-7 fusion Continued oxygenation issue, though continuing to improve Encouraged incentive spirometry Bowel regimen Vanco coverage: cont for now given reported significant drainage the day prior Medication regimen to optimize pain control; eRx for outpatient sent OOB and mobilize with TLSO brace, PT Cont to monitor oxygenation status DVT prophylaxis Appreciate pulmonary f/u Discharge planning- VNS, home pain med regimen discussed (one month of oxycontin plus oxycodone breakthrough, and off oxycontin one month out to be on short- acting only), home care needs (walker)
[2020-02-01] MEDS ORDERED: PT OWN MED DRAWER 7, Y5N ONE (21:38)
[2020-02-01] MEDS: GABAPENTIN PO SCH (21:40)
[2020-02-01] MEDS: ATORVASTATIN CA 80 MG TABLET (FP) PO SCH (21:40)
[2020-02-01] MEDS: ESCITALOPRAM OXALATE 10 MG TABLET PO SCH (21:40)
[2020-02-01] MEDS: SENNOSIDES 8.6MG TABLET (FP) PO SCH (21:47)
[2020-02-02] MEDS: D5-1/2NS+20 MEQ KCL - 20 MEQ/1,000 ML INFUS.BAG IV SCH (02:38)
[2020-02-02] MEDS: HYDROmorphone HCl 2 MG/ML VIAL IVPUSH PRN ×5 (04:43→21:15)
[2020-02-02] MEDS: DOCUSATE SODIUM 100 MG CAPSULE (FP) PO SCH ×3 (05:51→21:09)
[2020-02-02] MEDS: GABAPENTIN 300 MG CAPSULE PO SCH ×2 (05:51→14:52)
[2020-02-02] MEDS: diazePAM 5 MG TABLET PO SCH ×3 (05:52→21:07)
[2020-02-02 07:00] LABS: BASO % 0.4 % (0-2.0); EOS % 2.1 % (0-4.5); HEMATOCRIT 28.6 % (35.4-49); HEMOGLOBIN 9.8 GM/dL (11.7-16.9); LYMPH % 21.5 % (8-40); MCH 31.3 pg (25.7-33.7); MCHC 34.4 g/dl (32.0-35.9); MEAN CELL VOLUME 90.9 fl (80-96); MEAN PLT VOLUME 7.6 fl (7.5-11.1); MONO % 9.6 % (3.8-10.2); NEUT % 66.4 % (42.8-82.8); PLATELET COUNT 319 K/MM3 (134-434); RBC 3.15 M/mm3 (4.00-5.60); RDW 13.4 % (11.9-15.9); WHITE BLOOD COUNT 7.6 K/mm3 (4.0-10.0)
[2020-02-02 07:34] LABS: ALBUMIN 2.7 g/dl (3.4-5.0); BILIRUBIN,TOTAL 0.7 mg/dL (0.2-1); BLOOD UREA NITROGEN 8.1 mg/dL (7-18); CALCIUM 8.1 mg/dL (8.5-10.1); CREATININE 0.8 mg/dL (0.55-1.3); MAGNESIUM 2.2 mg/dL (1.8-2.4); POTASSIUM 3.8 mmol/L (3.5-5.1); TOT PROT 5.7 g/dl (6.4-8.2)
--- NOTE | 2020-02-02 08:16 | DS ---
Physical Exam: SUBJECTIVE: Patient seen and examined OBJECTIVE: Vital Signs Period Temp Pulse Resp BP Sys/Edouard Pulse Ox Last 24 Hr 97.4 F-99.1 F 85-93 17-20 112-128/58-87 90-96 PHYSICAL EXAM GENERAL: The patient is awake, alert, and fully oriented, in no acute distress. HEAD: Normal with no signs of trauma. EYES: PERRL, extraocular movements intact, sclera anicteric, conjunctiva clear. ENT: Ears normal, nares patent, oropharynx clear without exudates, moist mucous membranes. NECK: Trachea midline, full range of motion, supple. LUNGS: Breath sounds equal, clear to auscultation bilaterally, no wheezes, no crackles, no accessory muscle use. HEART: Regular rate and rhythm, S1, S2 without murmur, rub or gallop. ABDOMEN: Soft, nontender, nondistended, normoactive bowel sounds, no guarding, no rebound, no hepatosplenomegaly, no masses. EXTREMITIES: 2+ pulses, warm, well-perfused, no edema. NEUROLOGICAL: Cranial nerves II through XII grossly intact. Normal speech, gait not observed. PSYCH: Normal mood, normal affect. SKIN: Warm, dry, normal turgor, no rashes or lesions noted. LABS Laboratory Results - last 24 hr 02/02/20 02/02/20 05:54 05:54 WBC 7.6 RBC 3.15 L Hgb 9.8 L Hct 28.6 L MCV 90.9 MCH 31.3 MCHC 34.4 RDW 13.4 Plt Count 319 MPV 7.6 Absolute Neuts (auto) 5.0 Neutrophils % 66.4 Lymphocytes % 21.5 Monocytes % 9.6 Eosinophils % 2.1 Basophils % 0.4 Nucleated RBC % 0 Sodium 139 Potassium 3.8 Chloride 100 Carbon Dioxide 31 Anion Gap 7 L BUN 8.1 Creatinine 0.8 Est GFR (CKD-EPI)AfAm 127.70 Est GFR (CKD-EPI)NonAf 110.18 Random Glucose 125 H Calcium 8.1 L Magnesium 2.2 Total Bilirubin 0.7 AST 20 ALT 29 Alkaline Phosphatase 75 Total Protein 5.7 L Albumin 2.7 L HOSPITAL COURSE: Date of Admission:01/24/20 Date of Discharge: 02/02/20 Discharge Summary Reason For Visit: OTH INTERVERT DISC DISPLACE, THOR REG/THOR RADICUL Current Active Problems COVID-19 ruled out (Acute) Chronic back pain (Acute) Depression (Acute) HLD (hyperlipidemia) (Acute) Presence of stent in coronary artery in patient with coronary artery disease (Acute) Prophylactic measure (Acute) S/P chest tube placement (Acute) Thoracotomy scar of left chest (Acute) Condition: Stable - Instructions Diet, Activity, Other Instructions: Post-op Instructions Diet: Regular Activity:May shower but keep incision line dry. Change dressing afterwards. (4x4 sterile gauze and tegaderm) Restrictions: Do not lift anything over 10lbs. Wear TLSO brace when OOB. Additional Instructions: Keep incision line clean and dry. Change dressing daily. Report any chills, fever (100 or greater), any wound drainage, or any neurological changes to Dr. Rosado. Do not drive for two weeks. Initial postop appt: Call Dr Rosado's office to be seen in about 1 week Disposition: VNS/HOME HEALTH CARE - Home Medications Comprehensive Discharge Medication List: Ambulatory Orders Atorvastatin Ca [Lipitor] 80 mg PO HS 12/03/16 Cyclobenzaprine HCl [Flexeril 10 mg] 10 mg PO TID PRN 12/03/16 Alprazolam [Xanax] 1 tab PO PRN PRN 12/23/19 Butalb/Acetaminophen/Caffeine [Fioricet Tablet 50-325-40] 1 tab PO PRN PRN 12/23/19 Escitalopram Oxalate [Lexapro -] 10 mg PO HS 12/23/19 Gabapentin [Neurontin -] 600 mg PO BID 12/23/19 Gabapentin [Neurontin -] 700 mg PO HS 12/23/19 Metoprolol Succinate [Toprol Xl] 1 tab PO DAILY 12/23/19 Ondansetron HCl [Zofran] 4 mg PO PRN PRN 12/23/19 Zolpidem Tartrate [Ambien] 1 tab PO HS 12/23/19 Docusate Sodium [Colace -] 100 mg PO TID #90 capsule 02/01/20 oxyCODONE HCL [Roxicodone -] 5 mg PO Q6H #120 tablet MDD 4 02/01/20 oxyCODONE SR [Oxycontin] 20 mg PO BID #60 tab.er.12h MDD 2 02/01/20 Problem List - Problems (1) Prophylactic measure Code(s): Z29.9 - ENCOUNTER FOR PROPHYLACTIC MEASURES, UNSPECIFIED (2) COVID-19 ruled out Code(s): Z03.818 - ENCNTR FOR OBS FOR SUSP EXPSR TO OTH BIOLG AGENTS RULED OUT (3) HLD (hyperlipidemia) Code(s): E78.5 - HYPERLIPIDEMIA, UNSPECIFIED (4) Depression Code(s): F32.9 - MAJOR DEPRESSIVE DISORDER, SINGLE EPISODE, UNSPECIFIED (5) Chronic back pain Code(s): M54.9 - DORSALGIA, UNSPECIFIED; G89.29 - OTHER CHRONIC PAIN (6) Anxiety Code(s): F41.9 - ANXIETY DISORDER, UNSPECIFIED (7) Presence of stent in coronary artery in patient with coronary artery disease Code(s): I25.10 - ATHSCL HEART DISEASE OF [place] CORONARY ARTERY W/O ANG PCTRS; Z95.5 - PRESENCE OF CORONARY ANGIOPLASTY IMPLANT AND GRAFT - Discharge Referral Referred to [facility] Med P.C.: No
--- NOTE | 2020-02-02 09:04 | PN ---
Progress Note (short form) - Note Progress Note: NEUROSURGERY POD #9 On 4S telemetry C/o L chest incisional pain but continues to improve No respiratory issue reported Tolerated PO diet R LE strength remains improved PE: Tmax 99.1, now 98.4, VSS, O2 sat mostly 92-97% Awake/alert; spirometry improving HEENT- NC/AT; Neck- supple; Cor- RR; Lungs- CTA, decreased at B bases; Abd- benign; Ext- no sign of DVT CN- intact; Motor- B LE 5/5; UE 5/5; Sensation- grossly intact LT Dressing intact, incision c/d, no drainage s/p L thoracotomy for T6-7 fusion Continued oxygenation issue, though continuing to improve Encouraged incentive spirometry Bowel regimen Vanco coverage, d/c Levaquin for pulmonary coverage Medication regimen to optimize pain control; eRx for outpatient sent OOB and mobilize with TLSO brace, PT Cont to monitor oxygenation status DVT prophylaxis Discharge planning- VNS, home pain med regimen discussed (one month of oxycontin plus oxycodone breakthrough, and off oxycontin one month out to be on short- acting only), home care needs (walker) form completed Plan d/c home tomorrow
[2020-02-02] MEDS ORDERED: PT OWN MED DRAWER 7, Y5N ONE (10:09)
[2020-02-02] MEDS: oxyCODONE HCL 10 MG SUSTAINED ACTING TABLET PO SCH ×2 (10:15→21:09)
[2020-02-02] MEDS: metoPROLOL SUCCINATE 25 MG TAB.SR.24H (FP) PO SCH (10:15)
[2020-02-02] MEDS: guaiFENesin 600 MG TABLET.ER (FP) PO SCH ×2 (10:15→21:08)
[2020-02-02] MEDS: ENOXAPARIN NA (PORCINE) 40 MG/0.4 ML DISP.SYRIN SQ SCH (10:17)
[2020-02-02] MEDS: VANCOMYCIN 1 GRAM (PRE-DOCKED) 1,000 MG/250 ML BAG IVPB SCH ×2 (10:17→22:13)
[2020-02-02] MEDS: POLYETHYLENE GLYCOL 3350 119 GM BTL PO SCH ×2 (10:25→21:09)
--- NOTE | 2020-02-02 10:41 | PN ---
Progress Note, Physician Chief Complaint: Seen and examined in bed. Observed ambulating the valenzuela with PT. SPO2 dropped to 87% while off O2.Plan for dc home with O2 therapy. History of Present Illness: 44 year old male with PMH CAD (s/p LAD stent 2018), HLD, depression, anxiety, and chronic back pain (herniated discs, fusions and spurs; history of multiple spinal surgeries) who presents s/p left T6 thoracotomy; rib resection; T6-7 discectomy, microdissection, partial T6 and T7 corpectomies; anterior T6-7 interbody fusion; anterior instrumentation Pivox large plate and 30 mm screws x2; 11 mm pyramesh cage; autologous rib graft; and chest tube. Chest tube removed and transferred to tele yesterday Today is POD #8. Pain controlled with oral pain meds - Current Medication List Current Medications: Active Medications Acetaminophen (Tylenol -) 650 mg PO Q4H PRN PRN Reason: PAIN LEVEL 1 - 3 Atorvastatin Calcium (Lipitor -) 80 mg PO [facility] Last Admin: 02/01/20 21:40 Dose: 80 mg Documented by: Bisacodyl (Dulcolax Suppository -) 10 mg RC DAILY PRN PRN Reason: CONSTIPATION Diazepam (Valium -) 10 mg PO TID [facility] Last Admin: 02/02/20 05:52 Dose: 10 mg Documented by: Docusate Sodium (Colace -) 100 mg PO TID [facility] Last Admin: 02/02/20 05:51 Dose: 100 mg Documented by: Enoxaparin Sodium (Lovenox -) 40 mg SQ DAILY [facility] Last Admin: 02/02/20 10:17 Dose: 40 mg Documented by: Escitalopram Oxalate (Lexapro -) 10 mg PO [facility] Last Admin: 02/01/20 21:40 Dose: 10 mg Documented by: Gabapentin (Neurontin -) 600 mg PO BID@0600,1400 [facility] Last Admin: 02/02/20 05:51 Dose: 600 mg Documented by: Gabapentin 300 mg/ Gabapentin (400 mg) 700 mg PO [facility] Last Admin: 02/01/20 21:40 Dose: 700 mg Documented by: Guaifenesin (Mucinex -) 600 mg PO BID [facility] Last Admin: 02/02/20 10:15 Dose: 600 mg Documented by: Hydromorphone HCl (Dilaudid Vial -) 2 mg IVPUSH Q4H PRN PRN Reason: PAIN LEVEL 7 - 10 Last Admin: 02/02/20 08:45 Dose: 2 mg Documented by: Potassium Chloride/Dextrose/Sod Cl (D5-1/2ns+20 Meq Kcl -) 20 meq in 1,000 mls @ 42 mls/hr IV ASDIR [facility] Last Admin: 02/02/20 02:38 Dose: Not Given Documented by: Vancomycin HCl (Vancomycin (Pre-Docked)) 1,000 mg in 250 mls @ 166.667 mls/hr IVPB Q12H [facility]; Protocol Last Admin: 02/02/20 10:17 Dose: 166.667 mls/hr Documented by: Levofloxacin (Levaquin -) 500 mg PO DAILY [facility] Last Admin: 02/02/20 10:14 Dose: 500 mg Documented by: Metoprolol Succinate (Toprol Xl -) 25 mg PO DAILY [facility] Last Admin: 02/02/20 10:15 Dose: 25 mg Documented by: Ondansetron HCl (Zofran Injection) 4 mg IVPUSH Q6H PRN PRN Reason: NAUSEA AND/OR VOMITING Oxycodone HCl (Oxycontin -) 20 mg PO BID [facility] Last Admin: 02/02/20 10:15 Dose: 20 mg Documented by: Polyethylene Glycol (Miralax (For Daily Use) -) 17 gm PO BID [facility] Last Admin: 02/02/20 10:25 Dose: Not Given Documented by: Senna (Senna -) 2 tab PO HS [facility] Last Admin: 02/01/20 21:47 Dose: Not Given Documented by: Zolpidem Tartrate (Ambien -) 5 mg PO HS PRN PRN Reason: INSOMNIA - Objective Vital Signs: Vital Signs Temperature 99 F 02/02/20 10:00 Pulse Rate 86 02/02/20 10:00 Respiratory Rate 20 02/02/20 10:00 Blood Pressure 128/86 02/02/20 10:00 O2 Sat by Pulse Oximetry (%) 100 02/02/20 10:00 Additional Findings/Remarks: Constitutional: Yes: Well Nourished, No Distress, Calm Eyes: Yes: WNL, Conjunctiva Clear HENT: Yes: WNL, Atraumatic, Normocephalic Neck: Yes: WNL Cardiovascular: Yes: WNL, Regular Rate and Rhythm Respiratory: Yes: WNL, Regular, CTA Bilaterally O2 at 2L Gastrointestinal: Yes: WNL, Normal Bowel Sounds, Soft ...Rectal Exam: Yes: Deferred Genitourinary: Yes: WNL Breast(s): Yes: WNL Musculoskeletal: Yes: Back Pain, Other (tenderness to thoracic incision and old CT site) Extremities: Yes: WNL Edema: No Peripheral Pulses WNL: Yes Peripheral Pulses: Left Radial: 2+, Right Radial: 2+, Left Doralis Pedis: 2+, Right Dorsalis Pedis: 2+, Left Femoral: 2+, Right Femoral: 2+ Integumentary: Yes: WNL Wound/Incision: Yes: Well Approximated, Dressing Dry and Intact Neurological: Yes: WNL, Alert, Oriented ...Motor Strength: WNL Psychiatric: Yes: WNL Labs: CBC, BMP 02/02/20 05:54 02/02/20 05:54 Problem List - Problems (1) Prophylactic measure Assessment/Plan: FEN Fluids: adequate PO intake Electrolytes: monitor & replete as needed Nutrition: soft diet DVT moderate risk sq lovenox Dispo Maintain as inpatient full code discharge planning to home with VNS tomorrow Code(s): Z29.9 - ENCOUNTER FOR PROPHYLACTIC MEASURES, UNSPECIFIED (2) COVID-19 ruled out Assessment/Plan: negative PCR Code(s): Z03.818 - ENCNTR FOR OBS FOR SUSP EXPSR TO OTH BIOLG AGENTS RULED OUT (3) HLD (hyperlipidemia) Assessment/Plan: c/w atorvastatin Code(s): E78.5 - HYPERLIPIDEMIA, UNSPECIFIED (4) Depression Assessment/Plan: c/w lexapro supportive care Code(s): F32.9 - MAJOR DEPRESSIVE DISORDER, SINGLE EPISODE, UNSPECIFIED (5) Chronic back pain Assessment/Plan: improved home pain med regimen discussed with Dr Rosado (one month of oxycontin plus oxycodone breakthrough, and off oxycontin one month out to be on short-acting only home care needs (walker) Rx trsmitted to home pharm by Dr Rosado Code(s): M54.9 - DORSALGIA, UNSPECIFIED; G89.29 - OTHER CHRONIC PAIN (6) Anxiety Assessment/Plan: supportive care Code(s): F41.9 - ANXIETY DISORDER, UNSPECIFIED (7) Presence of stent in coronary artery in patient with coronary artery disease Assessment/Plan: s/p stent continue metoprolol succinate 25mg, atorvastatin, enoxaparin Code(s): I25.10 - ATHSCL HEART DISEASE OF [place] CORONARY ARTERY W/O ANG PCTRS; Z95.5 - PRESENCE OF CORONARY ANGIOPLASTY IMPLANT AND GRAFT (8) Requires continuous at home supplemental oxygen Assessment/Plan: SPo2 decreased to 87% while off O2 request placed for home O2 Code(s): Z99.81 - DEPENDENCE ON SUPPLEMENTAL OXYGEN Visit type - Emergency Visit Emergency Visit: Yes ED Registration Date: 01/24/20 Care time: The patient presented to the Emergency Department on the above date and was hospitalized for further evaluation of their emergent condition. - New Patient This patient is new to me today: No - Critical Care Critical Care patient: No - Discharge Referral Referred to [facility] Med P.C.: No
[2020-02-02] MEDS: ATORVASTATIN CA 80 MG TABLET (FP) PO SCH (21:07)
[2020-02-02] MEDS: GABAPENTIN PO SCH (21:08)
[2020-02-02] MEDS: SENNOSIDES 8.6MG TABLET (FP) PO SCH (21:08)
[2020-02-02] MEDS: ESCITALOPRAM OXALATE 10 MG TABLET PO SCH (21:08)
[2020-02-03] MEDS: HYDROmorphone HCl 2 MG/ML VIAL IVPUSH PRN ×2 (01:10→05:54)
[2020-02-03] MEDS: GABAPENTIN 300 MG CAPSULE PO SCH (05:53)
[2020-02-03] MEDS: D5-1/2NS+20 MEQ KCL - 20 MEQ/1,000 ML INFUS.BAG IV SCH (05:53)
[2020-02-03] MEDS: DOCUSATE SODIUM 100 MG CAPSULE (FP) PO SCH (05:54)
[2020-02-03] MEDS: diazePAM 5 MG TABLET PO SCH (05:54)
--- NOTE | 2020-02-03 07:24 | DS ---
Physical Exam: SUBJECTIVE: Patient seen and examined 44 year old male with PMH CAD (s/p LAD stent 2019), HLD, depression, anxiety, and chronic back pain (herniated discs, fusions and spurs; history of multiple spinal surgeries) who presents s/p left T6 thoracotomy; rib resection; T6-7 discectomy, microdissection, partial T6 and T7 corpectomies; anterior T6-7 interbody fusion; anterior instrumentation Pivox large plate and 30 mm screws x2; 11 mm pyramesh cage; autologous rib graft; and chest tube. Today is POD #9. Pain controlled with oral pain meds OBJECTIVE: Vital Signs Period Temp Pulse Resp BP Sys/Edouard Pulse Ox Last 24 Hr 98.0 F-99 F 80-97 18-202 107-128/56-86 88-100 PHYSICAL EXAM Constitutional: Yes: Well Nourished, No Distress, Calm Eyes: Yes: WNL, Conjunctiva Clear HENT: Yes: WNL, Atraumatic, Normocephalic Neck: Yes: WNL Cardiovascular: Yes: WNL, Regular Rate and Rhythm Respiratory: Yes: WNL, Regular, CTA Bilaterally Gastrointestinal: Yes: WNL, Normal Bowel Sounds, Soft ...Rectal Exam: Yes: Deferred Genitourinary: Yes: WNL Breast(s): Yes: WNL Musculoskeletal: Yes: Back Pain, Other (tenderness to thoracic incision and old CT site) Extremities: Yes: WNL Edema: No Peripheral Pulses WNL: Yes Peripheral Pulses: Left Radial: 2+, Right Radial: 2+, Left Doralis Pedis: 2+, Right Dorsalis Pedis: 2+, Left Femoral: 2+, Right Femoral: 2+ Integumentary: Yes: WNL Wound/Incision: Yes: Well Approximated, Dressing Dry and Intact Neurological: Yes: WNL, Alert, Oriented ...Motor Strength: WNL Psychiatric: Yes: WNL LABS Laboratory Results - last 24 hr 02/02/20 02/02/20 05:54 05:54 WBC 7.6 RBC 3.15 L Hgb 9.8 L Hct 28.6 L MCV 90.9 MCH 31.3 MCHC 34.4 RDW 13.4 Plt Count 319 MPV 7.6 Absolute Neuts (auto) 5.0 Neutrophils % 66.4 Lymphocytes % 21.5 Monocytes % 9.6 Eosinophils % 2.1 Basophils % 0.4 Nucleated RBC % 0 Sodium 139 Potassium 3.8 Chloride 100 Carbon Dioxide 31 Anion Gap 7 L BUN 8.1 Creatinine 0.8 Est GFR (CKD-EPI)AfAm 127.70 Est GFR (CKD-EPI)NonAf 110.18 Random Glucose 125 H Calcium 8.1 L Magnesium 2.2 Total Bilirubin 0.7 AST 20 ALT 29 Alkaline Phosphatase 75 Total Protein 5.7 L Albumin 2.7 L HOSPITAL COURSE: Date of Admission:01/24/20 Date of Discharge: 02/03/20 Problem List - Problems (1) Prophylactic measure Assessment/Plan: FEN Fluids: adequate PO intake Nutrition: soft diet Dispo discharge to home with VNS Code(s): Z29.9 - ENCOUNTER FOR PROPHYLACTIC MEASURES, UNSPECIFIED (2) COVID-19 ruled out Assessment/Plan: negative PCR Code(s): Z03.818 - ENCNTR FOR OBS FOR SUSP EXPSR TO OTH BIOLG AGENTS RULED OUT (3) HLD (hyperlipidemia) Assessment/Plan: c/w atorvastatin Code(s): E78.5 - HYPERLIPIDEMIA, UNSPECIFIED (4) Depression Assessment/Plan: c/w lexapro supportive care Code(s): F32.9 - MAJOR DEPRESSIVE DISORDER, SINGLE EPISODE, UNSPECIFIED (5) Chronic back pain Assessment/Plan: improved home pain med regimen discussed with Dr Rosado (one month of oxycontin plus oxycodone breakthrough, and off oxycontin one month out to be on short-acting only home care needs (walker) Code(s): M54.9 - DORSALGIA, UNSPECIFIED; G89.29 - OTHER CHRONIC PAIN (6) Anxiety Assessment/Plan: supportive care Code(s): F41.9 - ANXIETY DISORDER, UNSPECIFIED (7) Presence of stent in coronary artery in patient with coronary artery disease Assessment/Plan: s/p stent continue metoprolol succinate 25mg, atorvastatin, enoxaparin Medically stable for discharge to home with VNS and home O2 Minutes to complete discharge: 45 Discharge Summary Problems reviewed: Yes Reason For Visit: OTH INTERVERT DISC DISPLACE, THOR REG/THOR RADICUL Current Active Problems COVID-19 ruled out (Acute) Chronic back pain (Acute) Depression (Acute) HLD (hyperlipidemia) (Acute) Presence of stent in coronary artery in patient with coronary artery disease (Acute) Prophylactic measure (Acute) Requires continuous at home supplemental oxygen (Acute) S/P chest tube placement (Acute) Thoracotomy scar of left chest (Acute) - Instructions Diet, Activity, Other Instructions: DISCHARGE YOUR VISIT You came to the hospital because underwent a cervical spinal fusion. You will be sent home on [address] Rosado will manage to help taper off. Oxygen has been order. You do not have to wear it all the time if your breathing is ok. Wear it will any increased activity and when you are sleeping at might. Change the bandage on your neck as instructed by Dr Rosado. MEDICATIONS Please continue to take your home medications as prescribed. There was no changes. Your pain medications were prescribed by Dr rosado and this be tapered to off DIET Continue your home diet ADDITIONAL CARE Activity:May shower but keep incision line dry. Change dressing afterwards. (4x4 sterile gauze and tegaderm) Please make an appointment to see your primary care provider, 1 week from today. Restrictions: Do not lift anything over 10lbs. Wear TLSO brace when OOB. Additional Instructions: Keep incision line clean and dry. Change dressing daily. Report any chills, fever (100 or greater), any wound drainage, or any neurological changes to Dr. Rosado. Do not drive for two weeks. Initial postop appt: Call Dr Rosado's office to be seen in about 1 week ADDITIONAL INFORMATION Please call [phone] or come directly to the emergency department if you experience unusual headache, vision change, shortness of breath, chest pain, numbness, tingling, loss of alertness/awareness, loss of function, unusual bleeding or any alarming symptoms. Thank you for allowing me to care for you. Rosendo Early, ACNP, [facility] [phone]-op Instructions Referrals: Gilbert Rosado MD [Staff Physician] - Disposition: HOME - Home Medications Comprehensive Discharge Medication List: Ambulatory Orders Atorvastatin Ca [Lipitor] 80 mg PO HS 12/03/16 Cyclobenzaprine HCl [Flexeril 10 mg] 10 mg PO TID PRN 12/03/16 Alprazolam [Xanax] 1 tab PO PRN PRN 12/23/19 Butalb/Acetaminophen/Caffeine [Fioricet Tablet 50-325-40] 1 tab PO PRN PRN 12/23/19 Escitalopram Oxalate [Lexapro -] 10 mg PO HS 12/23/19 Gabapentin [Neurontin -] 600 mg PO BID 12/23/19 Gabapentin [Neurontin -] 700 mg PO HS 12/23/19 Metoprolol Succinate [Toprol Xl] 1 tab PO DAILY 12/23/19 Ondansetron HCl [Zofran] 4 mg PO PRN PRN 12/23/19 Zolpidem Tartrate [Ambien] 1 tab PO HS 12/23/19 Docusate Sodium [Colace -] 100 mg PO TID #90 capsule 02/01/20 oxyCODONE HCL [Roxicodone -] 5 mg PO Q6H #120 tablet MDD 4 02/01/20 oxyCODONE SR [Oxycontin] 20 mg PO BID #60 tab.er.12h MDD 2 02/01/20 levoFLOXacin [Levaquin -] 500 mg PO DAILY #7 tablet 02/02/20 Prescription Drug Monitoring Program (I-STOP) results: I-STOP reviewed and no issues identified Problem List - Problems (1) Prophylactic measure Code(s): Z29.9 - ENCOUNTER FOR PROPHYLACTIC MEASURES, UNSPECIFIED (2) COVID-19 ruled out Code(s): Z03.818 - ENCNTR FOR OBS FOR SUSP EXPSR TO OTH BIOLG AGENTS RULED OUT (3) HLD (hyperlipidemia) Code(s): E78.5 - HYPERLIPIDEMIA, UNSPECIFIED (4) Depression Code(s): F32.9 - MAJOR DEPRESSIVE DISORDER, SINGLE EPISODE, UNSPECIFIED (5) Chronic back pain Code(s): M54.9 - DORSALGIA, UNSPECIFIED; G89.29 - OTHER CHRONIC PAIN (6) Anxiety Code(s): F41.9 - ANXIETY DISORDER, UNSPECIFIED (7) Presence of stent in coronary artery in patient with coronary artery disease Code(s): I25.10 - ATHSCL HEART DISEASE OF [place] CORONARY ARTERY W/O ANG PCTRS; Z95.5 - PRESENCE OF CORONARY ANGIOPLASTY IMPLANT AND GRAFT (8) Requires continuous at home supplemental oxygen Code(s): Z99.81 - DEPENDENCE ON SUPPLEMENTAL OXYGEN This patient is new to me today: Yes Date on this admission: 02/03/20 Emergency Visit: Yes ED Registration Date: 01/24/20 Care time: The patient presented to the Emergency Department on the above date and was hospitalized for further evaluation of their emergent condition. Critical Care patient: No - Discharge Referral Referred to [facility] Med P.C.: No
[2020-02-03 08:17] LABS: BASO % 0.3 % (0-2.0); EOS % 1.7 % (0-4.5); HEMATOCRIT 30.6 % (35.4-49); HEMOGLOBIN 10.2 GM/dL (11.7-16.9); LYMPH % 21.2 % (8-40); MCH 30.6 pg (25.7-33.7); MCHC 33.4 g/dl (32.0-35.9); MEAN CELL VOLUME 91.6 fl (80-96); MEAN PLT VOLUME 7.7 fl (7.5-11.1); MONO % 10.1 % (3.8-10.2); NEUT % 66.7 % (42.8-82.8); PLATELET COUNT 364 K/MM3 (134-434); RBC 3.34 M/mm3 (4.00-5.60); RDW 13.8 % (11.9-15.9); WHITE BLOOD COUNT 7.3 K/mm3 (4.0-10.0)
[2020-02-03 08:21] LABS: BILIRUBIN,TOTAL 0.7 mg/dL (0.2-1); BLOOD UREA NITROGEN 8.2 mg/dL (7-18); CALCIUM 8.8 mg/dL (8.5-10.1); CREATININE 0.9 mg/dL (0.55-1.3); MAGNESIUM 2.4 mg/dL (1.8-2.4); POTASSIUM 4.2 mmol/L (3.5-5.1); TOT PROT 6.4 g/dl (6.4-8.2)
[2020-02-03] MEDS ORDERED: PT OWN MED DRAWER 7, Y5N ONE (09:35)
[2020-02-03] MEDS: oxyCODONE HCL 10 MG SUSTAINED ACTING TABLET PO SCH (09:38)
[2020-02-03] MEDS: metoPROLOL SUCCINATE 25 MG TAB.SR.24H (FP) PO SCH (09:38)
[2020-02-03] MEDS: guaiFENesin 600 MG TABLET.ER (FP) PO SCH (09:38)
[2020-02-03] MEDS: ENOXAPARIN NA (PORCINE) 40 MG/0.4 ML DISP.SYRIN SQ SCH (09:38)
[2020-02-03] MEDS: VANCOMYCIN 1 GRAM (PRE-DOCKED) 1,000 MG/250 ML BAG IVPB SCH (09:59)
[2020-02-03] MEDS: POLYETHYLENE GLYCOL 3350 119 GM BTL PO SCH (09:59)
[2020-02-03 10:04] LABS: ANISOCYTOSIS 1+; MACROCYTOSIS 0; PLATELET ESTIMATE NORMAL
[2020-02-03 10:17] VITALS: BP 128/73; PULSE 88; TEMP 97.8
--- NOTE | 2020-02-03 10:17 | PN ---
Progress Note (short form) - Note Progress Note: NEUROSURGERY POD #10 On 4S telemetry C/o L chest incisional pain but continues to improve No respiratory issue reported Tolerated PO diet R LE strength remains improved PE: Tmax 98.8, now 98.4, VSS, O2 sat mostly 92-98 4L O2 Awake/alert; spirometry improving HEENT- NC/AT; Neck- supple; Cor- RR; Lungs- CTA, decreased at B bases; Abd- benign; Ext- no sign of DVT CN- intact; Motor- B LE 5/5; UE 5/5; Sensation- grossly intact LT Dressing intact, incision c/d, no drainage s/p L thoracotomy for T6-7 fusion Encouraged incentive spirometry Bowel regime Levaquin for pulmonary coverage Medication regimen to optimize pain control; eRx for outpatient sent Discharge planning- VNS, home pain med regimen discussed (one month of oxycontin plus oxycodone breakthrough, and off oxycontin one month out to be on short- acting only) Plan d/c home this AM
--- NOTE | 2020-02-03 17:21 | SURG ---
Surgery Distribution Analyst Note Distribution Analyst: VINCE Ribera Date of Service: 01/24/20 Diagnosis: T6-7 HNP [facility] radiculopathy Procedure: L T6 thoracotomy; rib resection; T6-7 discectomy, microdissection, partial T6 and T 7 corpectomies; fluoroscopy; anterior T6-7 interbody fusion; anterior instrumentation Pivox large plate and 30 mm screws x2; 11 mm pyramesh cage; autologous rib graft; chest tube I was present for the entirety of the operative procedure. For further detail, please refer to operative report. Visit type - Case Type Case Type: Scheduled - New patient This patient is new to me today: Yes Date on this admission: 02/03/20
== END 2020-02-03 11:38 | disposition home or self-care (01) | DRG 459 ==
LOC: J2C 06:11 → JICU 18:52 → J4S 01-31 22:39
PROVIDERS: ADMIT Neurological Surgery; ATTEND Nurse Practitioner Acute Care
PROC: 0RT90ZZ Resection of Thoracic Vertebral Disc, Open Approach (ICD-10-PCS; 2020-01-24)
PROC: 01N80ZZ Release Thoracic Nerve, Open Approach (ICD-10-PCS; 2020-01-24)
PROC: B01BZZZ Fluoroscopy of Spinal Cord (ICD-10-PCS; 2020-01-24)
PROC: 4A11X4G Monitoring of Peripheral Nervous Electrical Activity, Intraoperative, External Approach (ICD-10-PCS; 2020-01-24)
PROC: 0RG60A0 Fusion of Thoracic Vertebral Joint with Interbody Fusion Device, Anterior Approach, Anterior Column, Open Approach (ICD-10-PCS; principal; 2020-01-24 08:00)
DX: M51.14 Intervertebral disc disorders with radiculopathy, thoracic region (principal); J95.821 Acute postprocedural respiratory failure; J98.11 Atelectasis; R47.01 Aphasia; I25.10 Atherosclerotic heart disease of native coronary artery without angina pectoris; E78.5 Hyperlipidemia, unspecified; F41.8 Other specified anxiety disorders; G47.00 Insomnia, unspecified; K59.00 Constipation, unspecified; G96.19 Other disorders of meninges, not elsewhere classified; R11.0 Nausea; D64.9 Anemia, unspecified; Z88.0 Allergy status to penicillin; Z99.81 Dependence on supplemental oxygen; Y83.8 Other surgical procedures as the cause of abnormal reaction of the patient, or of later complication, without mention of misadventure at the time of the procedure; Z95.5 Presence of coronary angioplasty implant and graft
CPT/HCPCS: 36415; 71045-TC-FY; 71275-TC; 76000-TC-FY; 80048; 80053; 83735; 84100; 85025; 85027; 88304-TC; 94640; 94660; 94760; 94761; 97116-GP; 97162-GP; J0131; Q9967

== ENCOUNTER 2020-09-08 04:18 | Inpatient (IN) | payer BC ==
[2020-09-04 18:19] VITALS: BMI 29.6
[2020-09-08] MEDS ORDERED: THROMBIN (BOVINE) 5,000 UNIT VIAL TP ONE (07:07)
[2020-09-08] MEDS ORDERED: EPHEDRINE SULFATE/0.9% NACL/PF 50 MG/10 ML SYRINGE NR ONE (07:32)
[2020-09-08] MEDS ORDERED: SUCCINYLCHOLINE CHLORIDE 200 MG/10 ML SYRINGE ONE (07:33)
[2020-09-08] MEDS ORDERED: fentaNYL CITRATE 250 MCG/5 ML VIAL ONE (07:33)
[2020-09-08] MEDS ORDERED: PROPOFOL 20 ML ONE ×11 (07:33→09:19)
[2020-09-08] MEDS ORDERED: MIDAZOLAM HCL 2 MG/2 ML SINGLE DOSE VIAL ONE (07:33)
[2020-09-08] MEDS ORDERED: VANCOMYCIN 1,000 MG VIAL (RESTRICTED TO ID ONLY) ONE (07:36)
[2020-09-08] MEDS ORDERED: VANCOMYCIN 1,000 MG VIAL (RESTRICTED TO ID ONLY) IVPB ONE (08:07)
[2020-09-08] MEDS ORDERED: ROCURONIUM BROMIDE 50 MG/5 ML SYRINGE ONE (08:13)
[2020-09-08] MEDS ORDERED: KETAMINE HCL 200 MG/20 ML VIAL ONE (08:19)
[2020-09-08] MEDS ORDERED: HYDROmorphone HCl 2 MG/ML VIAL ONE (08:23)
[2020-09-08] MEDS ORDERED: NEOSTIGMINE METHYLSULFATE 0.5 MG/1 ML - 10 ML MDV ONE (08:33)
[2020-09-08] MEDS ORDERED: ACETAMINOPHEN INJECTION 100 ML IVPB ONE (08:47)
[2020-09-08] MEDS ORDERED: BUPIVACAINE HCL/PF 0.5% (5 MG/ML) 30 ML VIAL IJ ONE (09:13)
[2020-09-08] MEDS ORDERED: BACITRACIN 15 GM TUBE TOPICAL OINTMENT ONE (09:21)
[2020-09-08] MEDS ORDERED: ACETAMINOPHEN/CAFFEINE/BUTALBITAL 1 TAB PO PRN (09:41)
[2020-09-08] MEDS: VANCOMYCIN 1 GM in D5W (PRE-DOCKED) 1,000 MG/250 ML IVPB SCH ×2 (10:00→22:07)
[2020-09-08] MEDS ORDERED: ONDANSETRON 4 MG/2 ML VIAL IVPUSH PRN (10:15)
[2020-09-08] MEDS ORDERED: HYDROmorphone *PCA* 10MG/50ML DISP.SYRIN ONE (10:30)
[2020-09-08] MEDS: HYDROmorphone *PCA* 10MG/50ML DISP.SYRIN PCA SCH ×2 (10:42→19:24)
[2020-09-08] MEDS: diazePAM 5 MG TABLET PO SCH ×3 (13:15→22:07)
[2020-09-08] MEDS ORDERED: PCA PUMP NR ONE ×2 (19:19→21:52)
[2020-09-08] MEDS: D5-1/2NS+20 MEQ KCL - 20 MEQ/1,000 ML INFUS.BAG IV SCH (19:32)
[2020-09-08] MEDS: LACTATED RINGERS SOLUTION 1,000 ML IV SCH (19:44)
[2020-09-08] MEDS ORDERED: PATIENT'S OWN MEDICATION (NON-FORMULARY) (Gabapentin Enacarbil [Horizant] 600 MG Tablet.Er PO SCH (22:00)
[2020-09-08] MEDS: ATORVASTATIN CA 80 MG TABLET (FP) PO SCH (22:06)
[2020-09-08] MEDS: ESCITALOPRAM OXALATE 10 MG TABLET PO SCH (22:06)
[2020-09-08] MEDS: DOCUSATE SODIUM 100 MG CAPSULE (FP) PO SCH ×2 (22:07→22:08)
[2020-09-08] MEDS: ZOLPIDEM TARTRATE 5 MG TABLET PO PRN (22:07)
[2020-09-08] MEDS: metoPROLOL SUCCINATE 25 MG TAB.SR.24H (FP) PO SCH ×2 (22:07)
[2020-09-08] MEDS: ONDANSETRON 4 MG/2 ML VIAL IVPUSH PRN (22:21)
[2020-09-09] MEDS: diazePAM 5 MG TABLET PO SCH ×3 (05:44→21:01)
[2020-09-09] MEDS: DOCUSATE SODIUM 100 MG CAPSULE (FP) PO SCH ×3 (05:45→21:00)
[2020-09-09] MEDS ORDERED: PCA PUMP NR ONE ×4 (06:57→20:52)
[2020-09-09] MEDS: LACTATED RINGERS SOLUTION 1,000 ML IV SCH ×2 (06:59→10:20)
[2020-09-09] MEDS ORDERED: HYDROmorphone *PCA* 10MG/50ML DISP.SYRIN PCA SCH ×2 (07:15→21:00)
[2020-09-09] MEDS: HYDROmorphone *PCA* 10MG/50ML DISP.SYRIN PCA SCH (09:32)
[2020-09-09] MEDS: metoPROLOL SUCCINATE 25 MG TAB.SR.24H (FP) PO SCH ×2 (10:20→21:01)
[2020-09-09] MEDS: D5-1/2NS+20 MEQ KCL - 20 MEQ/1,000 ML INFUS.BAG IV SCH (10:20)
[2020-09-09] MEDS: GABAPENTIN 300 MG CAPSULE PO SCH ×2 (14:59→21:01)
[2020-09-09] MEDS: ZOLPIDEM TARTRATE 5 MG TABLET PO PRN (21:01)
[2020-09-09] MEDS: ATORVASTATIN CA 80 MG TABLET (FP) PO SCH (21:01)
[2020-09-09] MEDS: ESCITALOPRAM OXALATE 10 MG TABLET PO SCH (21:01)
[2020-09-09] MEDS: ONDANSETRON 4 MG/2 ML VIAL IVPUSH PRN (21:02)
[2020-09-10] MEDS: DOCUSATE SODIUM 100 MG CAPSULE (FP) PO SCH ×3 (05:20→21:44)
[2020-09-10] MEDS: GABAPENTIN 300 MG CAPSULE PO SCH ×3 (05:20→21:44)
[2020-09-10] MEDS: diazePAM 5 MG TABLET PO SCH ×3 (05:20→21:45)
[2020-09-10] MEDS: metoPROLOL SUCCINATE 25 MG TAB.SR.24H (FP) PO SCH ×2 (09:53→21:44)
[2020-09-10] MEDS: morphine SO4 SUSTAINED ACTING 15 MG TABLET.SA PO SCH ×2 (10:45→21:43)
[2020-09-10] MEDS ORDERED: PCA PUMP NR ONE (10:57)
[2020-09-10] MEDS: oxyCODONE HCL 5 MG TABLET PO PRN ×3 (13:33→21:27)
[2020-09-10] MEDS: ONDANSETRON 4 MG/2 ML VIAL IVPUSH PRN (20:09)
[2020-09-10] MEDS: ESCITALOPRAM OXALATE 10 MG TABLET PO SCH (21:44)
[2020-09-10] MEDS: ATORVASTATIN CA 80 MG TABLET (FP) PO SCH (21:45)
[2020-09-10] MEDS: ZOLPIDEM TARTRATE 5 MG TABLET PO PRN (21:49)
[2020-09-11] MEDS: oxyCODONE HCL 5 MG TABLET PO PRN ×5 (04:28→21:05)
[2020-09-11] MEDS: diazePAM 5 MG TABLET PO SCH ×3 (05:26→21:30)
[2020-09-11] MEDS: GABAPENTIN 300 MG CAPSULE PO SCH ×3 (05:26→21:30)
[2020-09-11] MEDS: DOCUSATE SODIUM 100 MG CAPSULE (FP) PO SCH ×3 (05:27→21:30)
[2020-09-11] MEDS: morphine SO4 SUSTAINED ACTING 15 MG TABLET.SA PO SCH ×2 (09:03→21:30)
[2020-09-11] MEDS: metoPROLOL SUCCINATE 25 MG TAB.SR.24H (FP) PO SCH ×2 (09:05→21:30)
[2020-09-11] MEDS: ATORVASTATIN CA 80 MG TABLET (FP) PO SCH (21:30)
[2020-09-11] MEDS: ESCITALOPRAM OXALATE 10 MG TABLET PO SCH (21:30)
[2020-09-11] MEDS: ZOLPIDEM TARTRATE 5 MG TABLET PO PRN (21:32)
[2020-09-12] MEDS: oxyCODONE HCL 5 MG TABLET PO PRN ×2 (02:55→11:48)
[2020-09-12] MEDS: GABAPENTIN 300 MG CAPSULE PO SCH ×2 (05:58→13:35)
[2020-09-12] MEDS: diazePAM 5 MG TABLET PO SCH ×2 (05:58→13:35)
[2020-09-12] MEDS: DOCUSATE SODIUM 100 MG CAPSULE (FP) PO SCH ×3 (06:40→13:37)
[2020-09-12 08:52] LABS: BASO % 0.7 % (0-2.0); EOS % 3.1 % (0-4.5); HEMATOCRIT 37.8 % (35.4-49); HEMOGLOBIN 13.2 GM/dL (11.7-16.9); MCH 31.8 pg (25.7-33.7); MCHC 35.1 g/dl (32.0-35.9); MEAN CELL VOLUME 90.8 fl (80-96); MEAN PLT VOLUME 7.7 fl (7.5-11.1); MONO % 9.1 % (3.8-10.2); NEUT % 63.1 % (42.8-82.8); PLATELET COUNT 303 K/MM3 (134-434); RBC 4.16 M/mm3 (4.00-5.60); RDW 14.7 % (11.9-15.9); WHITE BLOOD COUNT 8.6 K/mm3 (4.0-10.0)
[2020-09-12] MEDS: morphine SO4 SUSTAINED ACTING 15 MG TABLET.SA PO SCH (09:17)
[2020-09-12] MEDS: metoPROLOL SUCCINATE 25 MG TAB.SR.24H (FP) PO SCH (09:17)
[2020-09-12 15:29] VITALS: BP 131/87; PULSE 79; TEMP 98.1
== END 2020-09-12 16:27 | disposition home health service (06) | DRG 460 ==
LOC: J2C 04:18 → J8W 17:12
PROVIDERS: ADMIT Neurological Surgery; ATTEND Neurological Surgery
PROC: 00NX0ZZ Release Thoracic Spinal Cord, Open Approach (ICD-10-PCS; 2020-09-08)
PROC: 01N80ZZ Release Thoracic Nerve, Open Approach (ICD-10-PCS; 2020-09-08)
PROC: B01BZZZ Fluoroscopy of Spinal Cord (ICD-10-PCS; 2020-09-08)
PROC: 4A11X4G Monitoring of Peripheral Nervous Electrical Activity, Intraoperative, External Approach (ICD-10-PCS; 2020-09-08)
PROC: 0RG6071 Fusion of Thoracic Vertebral Joint with Autologous Tissue Substitute, Posterior Approach, Posterior Column, Open Approach (ICD-10-PCS; principal; 2020-09-08 07:30)
DX: M51.04 Intervertebral disc disorders with myelopathy, thoracic region (principal); M48.04 Spinal stenosis, thoracic region; I25.10 Atherosclerotic heart disease of native coronary artery without angina pectoris; I10 Essential (primary) hypertension; E78.5 Hyperlipidemia, unspecified; Z95.5 Presence of coronary angioplasty implant and graft
CPT/HCPCS: 36415; 76000-TC-FY; 85025; 94010; 94760; 97116-GP; 97161-GP; J0131

== ENCOUNTER 2020-11-29 17:51 | Emergency (ER) | payer BC ==
[2020-11-29 18:08] VITALS: TEMP 98.3; BMI 28.8
[2020-11-29] MEDS ORDERED: morphine CARPU-JECT 4 MG/1 ML DISP.SYRIN IVPUSH ONE (19:35)
[2020-11-29] MEDS ORDERED: morphine SULFATE 4 MG/ML VIAL ONE (19:42)
[2020-11-29 20:39] VITALS: BP 138/95; PULSE 100
== END 2020-11-29 20:39 | disposition home or self-care (01) ==
LOC: JER 17:51
PROC: 3E033NZ Introduction of Analgesics, Hypnotics, Sedatives into Peripheral Vein, Percutaneous Approach (ICD-10-PCS; principal; 2020-11-29)
DX: M54.5 Low back pain (principal)
CPT/HCPCS: 99284-25